=== PATIENT | female | born 1945 | race Caucasian/White ===

== ENCOUNTER 2019-09-11 10:31 | Inpatient (IN) ==
--- NOTE | 2019-09-11 10:45 | Emergency Department Note ---
SOB HPI - General Chief Complaint: Shortness of Breath/Dyspnea Stated Complaint: shortness of breath x3 days with fever/cough Time Seen by Provider: 09/11/19 10:33 Source: patient Mode of arrival: wheelchair Limitations: no limitations - History of Present Illness 74-year-old female comes into the emergency Department today with complaint of fevers that began 3 days ago as well as cough, shortness of breath, and wheezing. She has a history of COPD. She reports that she has oxygen at home but normally does not require her oxygen until the last couple of days. She also noticed having pain on the lateral side of her right lower chest for the last 2 days. She has a productive cough of light brown colored sputum. She denies any nausea, vomiting, diarrhea, constipation, melena, hematochezia. She denies chest pains, headache, weakness, dizziness. - Related Data Home Medications Medication Instructions Recorded Confirmed allopurinol 100 mg tablet 300 mg PO QDAY tab 03/26/17 09/11/19 vitamin B complex 1 tab-cap PO QDAY 03/26/17 09/11/19 simvastatin 40 mg tablet 40 mg PO QPM tab 08/11/17 09/11/19 fluticasone furoate 200 1 inh INHALATION Q24H 12/07/17 09/11/19 mcg-vilanterol 25 mcg/dose inhalation powder umeclidinium 62.5 mcg/actuation 1 inh INHALATION Q24H 12/07/17 09/11/19 blister powder for inhalation omega-3 fatty acids 300 mg capsule 500 mg PO .once a day cap 07/04/18 09/11/19 omeprazole 20 mg tablet,delayed 20 mg PO .q.o.d tab 07/04/18 09/11/19 release carvedilol 6.25 mg tablet 12.5 mg PO BID tab 07/24/19 09/11/19 Pen Needle, Diabetic [Incontrol See Dose Instructions dose .ROUTE 09/11/19 09/11/19 Pen Needle] .MEDSUPPLY Previous Rx's Medication Instructions Recorded insulin glargine U-300 conc 300 10 unit SUB-Q QHS #4.5 ml 05/29/19 unit/mL (1.5 mL) subcutaneous pen insulin lispro 100 unit/mL 5 unit SUB-Q QHS #15 ml 07/27/19 subcutaneous pen Allergies Allergy/AdvReac Type Severity Reaction Status Date / Time Sulfa (Sulfonamide Allergy Unknown Unknown Verified 07/24/19 09:53 Antibiotics) Review of Systems Constitutional: Reports: fever, chills. Denies: weakness Eyes: Denies: vision change ENT ED: Reports: congestion, rhinorrhea. Denies: ear pain, throat pain Cardiovascular: Denies: chest pain, palpitations Respiratory: Reports: shortness of breath, cough, wheezes, phlegm Gastrointestinal: Denies: abdominal pain, nausea, vomiting Genitourinary: Denies: dysuria, frequency Musculoskeletal: Denies: back pain, joint swelling Neurological: Denies: headache, weakness Psychiatric: Denies: anxiety, depression Endocrine: Denies: fatigue, heat or cold intolerance Hematological/Lymphatic: Denies: easy bleeding, easy bruising Past Medical History - Past Medical History Medical history: Reports: arthritis, cancer, COPD, DM, GERD, hypertension, renal disease Surgical history ED: Reports: other (partial nephrectomy 2015) - Social History smoking status: Former smoker Physical Exam Limitations: no limitations General appearance: alert, anxious Head: atraumatic, normocephalic, normal inspection Eye: Present: normal appearance, PERRL, EOMI. Absent: scleral icterus, conjunctival injection ENT: Present: normal oropharynx, mucous membranes moist Neck: Present: normal inspection, full ROM, trachea midline, other (no JVD). Absent: lymphadenopathy Chest: Present: normal inspection, symmetric chest wall rise Respiratory: Present: rales/crackles (all lobes), wheezes (all lobes), other (tachypnea). Absent: accessory muscle use Cardiovascular: Present: normal rhythm, tachycardia, +S1, +S2. Absent: systolic murmur, diastolic murmur Abdominal: Present: soft. Absent: distention, tenderness, guarding, rebound, rigidity, organomegaly, mass Extremities: Present: normal inspection, full ROM, normal capillary refill, pedal edema (2+), pretibial edema (2+). Absent: cyanosis Back: Present: normal inspection, full ROM Neurological: Present: alert, oriented X3, CN II-XII intact Skin: Present: warm, dry, normal color Course - Reevaluation(s) Time: 12:00 (White count 22.6, lactic acid normal at 1.6. 1 g Rocephin will be given for pneumonia. On the x-ray and appears pneumonia to my review. This will be read by radiologist.) Time: 12:15 (spoke with Dr. Joshi, radiologist who read the chest x-ray today. Dr. Joshi recommended CT scanning for further evaluation. Patient cried level 4.0, and Dr. Joshi recommended performing chest CT without co ntrast.) Time: 12:29 (Spoke with Dr. Linares who is the hospitalist today. Dr. Linares will come down to the ED and see the patient after the chest CT has been resulted. Pt is currently in radiology at this time.) Vital Signs Temperature 98.1 F 09/11/19 10:32 Pulse Rate 133 H 09/11/19 10:32 Respiratory Rate 30 H 09/11/19 10:32 Blood Pressure 166/78 09/11/19 10:32 Pulse Oximetry (%) 83 L 09/11/19 10:32 Temperature 99.4 F H 09/11/19 17:20 Pulse Rate 109 H 09/11/19 17:20 Respiratory Rate 28 H 09/11/19 17:20 Blood Pressure 147/85 09/11/19 17:20 Pulse Oximetry (%) 95 09/11/19 17:20 Shortness of Breath/Dyspnea - [facility] Narrative Medical decision making narrative: DuoNeb was given on arrival to the emergency department and she did not have much improvement with this, but did have some decreased wheezing. Patient requiring oxygen here at the emergency department. She has elevated white count and on chest x-ray appears to show pneumonia. Patient was given 1 g Rocephin IV here in the emergency department. She was unable to lie flat and did have a CT scan done today. Spoke with Dr. Linares about the patient, and the patient will be admitted [facility]. - Lab Data Lab results reviewed: Yes I reviewed the patient's lab results. Lab results narrative: Urine dipstick shows moderate amount of leukocytes and blood. Urine will be sent for microscopic examination. Result diagrams: 09/11/19 10:48 09/11/19 10:48 Lab Results 09/11/19 09/11/19 09/11/19 Range/Units 10:48 10:48 10:48 WBC 22.6 H (4.5-11.0) K/mcL RBC 3.79 L (4.00-5.20) M/mcL Hgb 11.5 L (12.0-15.0) g/dL Hct 36.4 (36.0-48.0) % MCV 96.1 (80.0-100.0) fL MCH 30.3 (26.0-34.0) pg MCHC 31.5 (31.0-36.0) g/dL RDW 16.3 H (11.5-14.5) % Plt Count 162 (140-440) K/mcL MPV 9.0 (7.4-10.4) fL Gran % 86.0 H (38.0-78.0) % Lymph % (Auto) 5.6 L (15.5-49.0) % [place] % (Auto) 8.4 (1.0-12.0) % Eos % (Auto) 0 (0.0-7.0) % Baso % (Auto) 0 (0.0-2.0) % Gran # 19.4 H (1.8-8.0) K/mcL Lymph # (Auto) 1.3 L (1.5-4.8) K/mcL [place] # (Auto) 1.9 H (0.1-0.9) K/mcL Eos # (Auto) 0 (0.0-0.7) K/mcL Baso # (Auto) 0 (0.0-0.3) K/mcL Differential Comment VBG Lactic Acid 1.6 (0.5-2.0) mmol/L Sodium 136 (133-145) mmol/L Potassium 4.9 (3.3-5.1) mmol/L Chloride 96 (96-108) mmol/L Carbon Dioxide 17 L (22-30) mmol/L Anion Gap 23.0 H (8-16) BUN 68 H (8-23) mg/dl Creatinine 4.0 H (0.6-1.1) mg/dl GFR Calculation 10 Glucose 149 H (70-105) mg/dL Calcium 9.8 (8.6-10.4) mg/dl Total Bilirubin 0.6 (0.0-1.0) mg/dL AST 14 (0-37) U/l ALT 11 (0-40) U/l Alkaline Phosphatase 95 (39-117) U/L Total Creatine Kinase 87 (24-170) IU/L CK-MB (CK-2) 1.7 (0-2.9) ng/ml Troponin T (0-0.03) ng/ml Total Protein 8.3 (5.9-8.4) gm/dL Albumin 4.1 (3.2-5.2) gm/dL Globulin 4.2 H (2.2-3.7) gm/dL Albumin/Globulin Ratio 1.0 (1.0-2.3) Procalcitonin (<0.10) ng/mL Urine Color Urine Appearance Urine pH (5.0-9.0) Ur Specific [place] (1.000-1.035) Urine Protein (NEG) mg/dL Urine Glucose (UA) (NEG) mg/dL Urine Ketones (NEG) mg/dL Urine Occult Blood (<0.03) mg/dL Urine Nitrate (NEG) Urine Bilirubin (NEG) mg/dL Urine Urobilinogen (NEG) mg/dL Ur Leukocyte Esterase (NEG) /uL Urine RBC (0-1) /hpf Urine WBC (0-4) /hpf Ur Squamous Epith Cells (0-4) /hpf Ur Transition Epith Cell (0-2) /hpf Urine Bacteria (0) /hpf Urine Mucus (0) /hpf Urine Yeast (Budding) (0) /hpf Ur Culture Indicated? Mycoplasma pneumon IgM (NEGATIVE) Ur Strep pneumoniae Ag (NEGATIVE) 09/11/19 09/11/19 09/11/19 Range/Units 10:48 10:48 10:49 WBC (4.5-11.0) K/mcL RBC (4.00-5.20) M/mcL Hgb (12.0-15.0) g/dL Hct (36.0-48.0) % MCV (80.0-100.0) fL MCH (26.0-34.0) pg MCHC (31.0-36.0) g/dL RDW (11.5-14.5) % Plt Count (140-440) K/mcL MPV (7.4-10.4) fL Gran % (38.0-78.0) % Lymph % (Auto) (15.5-49.0) % [place] % (Auto) (1.0-12.0) % Eos % (Auto) (0.0-7.0) % Baso % (Auto) (0.0-2.0) % Gran # (1.8-8.0) K/mcL Lymph # (Auto) (1.5-4.8) K/mcL [place] # (Auto) (0.1-0.9) K/mcL Eos # (Auto) (0.0-0.7) K/mcL Baso # (Auto) (0.0-0.3) K/mcL Differential Comment VBG Lactic Acid (0.5-2.0) mmol/L Sodium (133-145) mmol/L Potassium (3.3-5.1) mmol/L Chloride (96-108) mmol/L Carbon Dioxide (22-30) mmol/L Anion Gap (8-16) BUN (8-23) mg/dl Creatinine (0.6-1.1) mg/dl GFR Calculation Glucose (70-105) mg/dL Calcium (8.6-10.4) mg/dl Total Bilirubin (0.0-1.0) mg/dL AST (0-37) U/l ALT (0-40) U/l Alkaline Phosphatase (39-117) U/L Total Creatine Kinase (24-170) IU/L CK-MB (CK-2) (0-2.9) ng/ml Troponin T < 0.01 (0-0.03) ng/ml Total Protein (5.9-8.4) gm/dL Albumin (3.2-5.2) gm/dL Globulin (2.2-3.7) gm/dL Albumin/Globulin Ratio (1.0-2.3) Procalcitonin 1.86 (<0.10) ng/mL Urine Color Urine Appearance Urine pH (5.0-9.0) Ur Specific [place] (1.000-1.035) Urine Protein (NEG) mg/dL Urine Glucose (UA) (NEG) mg/dL Urine Ketones (NEG) mg/dL Urine Occult Blood (<0.03) mg/dL Urine Nitrate (NEG) Urine Bilirubin (NEG) mg/dL Urine Urobilinogen (NEG) mg/dL Ur Leukocyte Esterase (NEG) /uL Urine RBC (0-1) /hpf Urine WBC (0-4) /hpf Ur Squamous Epith Cells (0-4) /hpf Ur Transition Epith Cell (0-2) /hpf Urine Bacteria (0) /hpf Urine Mucus (0) /hpf Urine Yeast (Budding) (0) /hpf Ur Culture Indicated? Mycoplasma pneumon IgM Negative (NEGATIVE) Ur Strep pneumoniae Ag (NEGATIVE) 09/11/19 09/11/19 Range/Units 12:15 12:15 WBC (4.5-11.0) K/mcL RBC (4.00-5.20) M/mcL Hgb (12.0-15.0) g/dL Hct (36.0-48.0) % MCV (80.0-100.0) fL MCH (26.0-34.0) pg MCHC (31.0-36.0) g/dL RDW (11.5-14.5) % Plt Count (140-440) K/mcL MPV (7.4-10.4) fL Gran % (38.0-78.0) % Lymph % (Auto) (15.5-49.0) % [place] % (Auto) (1.0-12.0) % Eos % (Auto) (0.0-7.0) % Baso % (Auto) (0.0-2.0) % Gran # (1.8-8.0) K/mcL Lymph # (Auto) (1.5-4.8) K/mcL [place] # (Auto) (0.1-0.9) K/mcL Eos # (Auto) (0.0-0.7) K/mcL Baso # (Auto) (0.0-0.3) K/mcL Differential Comment VBG Lactic Acid (0.5-2.0) mmol/L Sodium (133-145) mmol/L Potassium (3.3-5.1) mmol/L Chloride (96-108) mmol/L Carbon Dioxide (22-30) mmol/L Anion Gap (8-16) BUN (8-23) mg/dl Creatinine (0.6-1.1) mg/dl GFR Calculation Glucose (70-105) mg/dL Calcium (8.6-10.4) mg/dl Total Bilirubin (0.0-1.0) mg/dL AST (0-37) U/l ALT (0-40) U/l Alkaline Phosphatase (39-117) U/L Total Creatine Kinase (24-170) IU/L CK-MB (CK-2) (0-2.9) ng/ml Troponin T (0-0.03) ng/ml Total Protein (5.9-8.4) gm/dL Albumin (3.2-5.2) gm/dL Globulin (2.2-3.7) gm/dL Albumin/Globulin Ratio (1.0-2.3) Procalcitonin (<0.10) ng/mL Urine Color Yellow Urine Appearance Cloudy Urine pH 6.0 (5.0-9.0) Ur Specific [place] 1.015 (1.000-1.035) Urine Protein >=500 A (NEG) mg/dL Urine Glucose (UA) 50 A (NEG) mg/dL Urine Ketones 5/tr A (NEG) mg/dL Urine Occult Blood 0.03 A (<0.03) mg/dL Urine Nitrate Neg (NEG) Urine Bilirubin Neg (NEG) mg/dL Urine Urobilinogen Neg (NEG) mg/dL Ur Leukocyte Esterase 250 A (NEG) /uL Urine RBC 7 H (0-1) /hpf Urine WBC 50 H (0-4) /hpf Ur Squamous Epith Cells 10 H (0-4) /hpf Ur Transition Epith Cell 1 (0-2) /hpf Urine Bacteria Few A (0) /hpf Urine Mucus Few (0) /hpf Urine Yeast (Budding) Few A (0) /hpf Ur Culture Indicated? No Mycoplasma pneumon IgM (NEGATIVE) Ur Strep pneumoniae Ag Negative (NEGATIVE) - Radiology Data Ordering Physician: Gael Powell Date of Service: 09/11/19 Procedure(s): XR chest 1V portable Accession Number(s): [id number] CLINICAL INFORMATION: dyspnea COMPARISON: 06/21/2019 plain film and chest CT 12/09/2017 FINDINGS: Moderate hiatal hernia again noted. Mild cardiomegaly is stable. Mild enlargement of the right hilum demonstrates long-term stability. Moderate interstitial disease within the right lung, predominantly in the perihilar region, is new since the comparison chest x-ray two months ago. A small patchy infiltrate has also developed in the left base. Small bilateral pleural effusion noted IMPRESSION: Moderate right lung interstitial infiltrate or edema is most prominent in the right perihilar region and smaller patchy left basilar infiltrate are new from previous x-ray. Consider: repeat chest CT given the complexity of this pulmonary pattern. This could be performed as CT pulmonary angiogram, to concomitantly exclude pulmonary embolus, as the patient can't tolerate iodinated contrast Interpreted and Authenticated by: Manuel Joshi 09/11/19 [id number] [id number] Systems Spec: <Electronically signed by Manuel Joshi M.D. in OV> 09/11/19 1204 Disposition Pt seen by TRANSFER KNITTER/PA only: No Clinical Impression: Community acquired pneumonia, CKD (chronic kidney disease) Disposition: Xfer As Inpt ([facility]) Condition: Fair
[2019-09-11] MEDS ORDERED: IPRATROPIUM/ALBUTEROL 3 ML AMPUL.NEB NEB ONE (10:47)
[2019-09-11] MEDS ORDERED: 0.9 % SODIUM CHLORIDE 1,000 ML IV ONE ×2 (10:49→11:41)
[2019-09-11 11:36] LABS: Basophils # (Auto) 0 K/mcL (0.0-0.3); Basophils % (Auto) 0 % (0.0-2.0); Eosinophils # (Auto) 0 K/mcL (0.0-0.7); Eosinophils % (Auto) 0 % (0.0-7.0); Hematocrit 36.4 % (36.0-48.0); Hemoglobin 11.5 g/dL (12.0-15.0); Lymphocytes # (Auto) 1.3 K/mcL (1.5-4.8); Lymphocytes % (Auto) 5.6 % (15.5-49.0); Mean Cell Volume 96.1 fL (80.0-100.0); Mean Corpuscular HGB Conc 31.5 g/dL (31.0-36.0); Monocytes # (Auto) 1.9 K/mcL (0.1-0.9); Monocytes % (Auto) 8.4 % (1.0-12.0); Platelet Count 162 K/mcL (140-440); RBC 3.79 M/mcL (4.00-5.20); Red Cell Distribution Width 16.3 % (11.5-14.5); WBC 22.6 K/mcL (4.5-11.0)
[2019-09-11] MEDS ORDERED: PIPERACILLIN SODIUM/TAZOBACTAM 3.375 GM in DEXTROSE 5% IN WATER 50 ML IV ONE (11:44)
[2019-09-11] MEDS ORDERED: cefTRIAXone 1 GM VIAL IV ONE (11:47)
[2019-09-11 11:58] LABS: ALT/SGPT 11 U/l (0-40); AST/SGOT 14 U/l (0-37); Albumin 4.1 gm/dL (3.2-5.2); Alkaline Phosphatase 95 U/L (39-117); Bilirubin,Total 0.6 mg/dL (0.0-1.0); Blood Urea Nitrogen 68 mg/dl (8-23); Calcium 9.8 mg/dl (8.6-10.4); Carbon Dioxide 17 mmol/L (22-30); Chloride 96 mmol/L (96-108); Creatine Kinase 87 IU/L (24-170); Creatine Kinase MB 1.7 ng/ml (0-2.9); Globulin 4.2 gm/dL (2.2-3.7); Glomerular Filtration Rate 10; Glucose 149 mg/dL (70-105)
--- NOTE | 2019-09-11 12:07 | XRay Report ---
CLINICAL INFORMATION: dyspnea COMPARISON: 06/21/2019 plain film and chest CT 12/09/2017 FINDINGS: Moderate hiatal hernia again noted. Mild cardiomegaly is stable. Mild enlargement of the right hilum demonstrates long-term stability. Moderate interstitial disease within the right lung, predominantly in the perihilar region, is new since the comparison chest x-ray two months ago. A small patchy infiltrate has also developed in the left base. Small bilateral pleural effusion noted IMPRESSION: Moderate right lung interstitial infiltrate or edema is most prominent in the right perihilar region and smaller patchy left basilar infiltrate are new from previous x-ray. Consider: repeat chest CT given the complexity of this pulmonary pattern. This could be performed as CT pulmonary angiogram, to concomitantly exclude pulmonary embolus, as the patient can't tolerate iodinated contrast Interpreted and Authenticated by: Manuel Joshi 09/11/19
[2019-09-11 12:58] LABS: Appearance,Urine CLOUDY; Bacteria,Urine FEW /hpf (0); Bilirubin,Urine NEG (NEG); Color,Urine YELLOW; Culture Indicated,Urine NO; Glucose,Urine (UA) 50 mg/dL (NEG); Ketones,Urine 5/TR mg/dL (NEG); Leukocyte Esterase,Urine 250 /uL (NEG); Mucus,Urine FEW /hpf (0); Nitrate,Urine NEG (NEG); Protein,Urine >=500 mg/dL (NEG); Specific Gravity,Urine 1.015 (1.000-1.035); Urine Blood 0.03 mg/dL (<0.03); Urine Budding Yeast FEW /hpf (0); Urine RBC 7 /hpf (0-1); Urine Squamous Epithelial Cell 10 /hpf (0-4); Urine Transitional Epi Cells 1 /hpf (0-2); Urine WBC 50 /hpf (0-4); Urobilinogen,Urine NEG (NEG)
--- NOTE | 2019-09-11 13:11 | Internal Med History&Physical ---
Medical - H&P: [facility] Patient information: Note initiated : 09/11/19 at 1:10 pm Service Date, if different from initiated Date: [] Patient: Kellee Heller a 74 y/o F admitted on for shortness of breath x3 days with fever/cough. Chief Complaint: Cough, dyspnea History of present illness: Ms. Heller is a 74 year old F with a history of type 2 diabetes, chronic kidney disease, COPD on nocturnal oxygen who presents with cough and dyspnea. Patient states she developed cough about 3 days ago, productive of grayish sputum. Since then she is developed progressive dyspnea. She normally uses oxygen at night, started using it during the day to help with her shortness of breath. She has not noted a fever, has had no shaking chills. Yesterday afternoon she developed lower right-sided chest pain which was worse with coughing and deep inspiration. For the last 2 nights she has been sleeping upright secondary to shortness of breath when trying to lay back. Patient has no history of heart failure, does have lower extremity edema at baseline and feels it is not worse than usual. She denies any chest pain or tightness or pressure. She said no nausea or vomiting. She is had no headache or myalgia, has had some mild rhinorrhea. She did receive influenza vaccine this year. In the emergency department, the patient was requiring up to 4 L nasal cannula to maintain oxygen saturations in the low 90s. Her white count was 22,000. Her creatinine is elevated to 4.0, her most recent creatinine being 3.2 (patient has solitary kidney, status post partial, then eventual resection of left kidney for renal cell carcinoma with recurrence). Chest x-ray revealed moderate right infiltrate, more perihilar as well as some mild left-sided findings. These were felt to be infection versus edema. Further evaluation with CT was suggested, however the patient was too dyspneic to lie in the scanner. She is being admitted for treatment of pneumonia with sepsis. All systems: reviewed and no additional remarkable complaints except as stated Medical - H&P: PMH Medical history: Chronic obstructive lung disease (Chronic) CKD (chronic kidney disease) stage 4, GFR 15-29 ml/min (Chronic) Hyperparathyroidism due to renal insufficiency (Chronic) Hypertension (Chronic) High cholesterol (Chronic) Gout (Chronic) GERD (gastroesophageal reflux disease) (Chronic) Diabetes (Chronic) Anemia (Chronic) Cervical dystonia (Chronic) ALEXANDRA (obstructive sleep apnea) (Chronic) Sinus problem (Chronic) Arthritis (Chronic) Osteoporosis (Chronic) H/O Renal cell carcinoma (Chronic) Single kidney (Chronic) History of nephrectomy, unilateral (Resolved) History of pneumococcal infection (Resolved) Surgical history: History of cholecystectomy (Chronic) History of partial nephrectomy (Chronic), with subsequent resection of remainder of kidney due to recurrent renal cell History of right hip replacement (Chronic) History of tonsillectomy (Chronic) S/P tubal ligation (Chronic) Pertinent family history: Father No pertinent family history Mother No problems noted. Social history: Patient does not smoke. No alcohol use. Medical - H&P: Meds Home Medications Medication Instructions Recorded Confirmed Type allopurinol 100 mg tablet 300 mg PO QDAY tab 03/26/17 09/11/19 History vitamin B complex 1 tab-cap PO QDAY 03/26/17 09/11/19 History simvastatin 40 mg tablet 40 mg PO QPM tab 08/11/17 09/11/19 History fluticasone furoate 200 1 inh INHALATION Q24H 12/07/17 09/11/19 History mcg-vilanterol 25 mcg/dose inhalation powder umeclidinium 62.5 mcg/actuation 1 inh INHALATION Q24H 12/07/17 09/11/19 History blister powder for inhalation omega-3 fatty acids 300 mg capsule 500 mg PO .once a day cap 07/04/18 09/11/19 History omeprazole 20 mg tablet,delayed 20 mg PO .q.o.d tab 07/04/18 09/11/19 History release insulin glargine U-300 conc 300 10 unit SUB-Q QHS #4.5 ml 05/29/19 09/11/19 Rx unit/mL (1.5 mL) subcutaneous pen carvedilol 6.25 mg tablet 12.5 mg PO BID tab 07/24/19 09/11/19 History insulin lispro 100 unit/mL 5 unit SUB-Q QHS #15 ml 07/27/19 09/11/19 Rx subcutaneous pen Pen Needle, Diabetic [Incontrol See Dose Instructions dose .ROUTE 09/11/19 09/11/19 History Pen Needle] .MEDSUPPLY Allergies Allergy/AdvReac Type Severity Reaction Status Date / Time Sulfa (Sulfonamide Allergy Unknown Unknown Verified 07/24/19 09:53 Antibiotics) Medical - H&P: Exam - Constitutional Vitals: Temp Pulse Resp BP Pulse Ox 98.1 F 132 H 34 H 143/90 91 09/11/19 10:32 09/11/19 12:45 09/11/19 12:45 09/11/19 12:45 09/11/19 12:45 Exam: GENERAL: Alert, oriented, in moderate distress. HEENT: Atraumatic. PERRL at 2 mm, conjunctiva clear, no scleral icterus. Hearing grossly intact. Oropharynx with tacky mucous membranes, no erythema or exudate. Tongue midline, palate rises symmetrically. NECK: Supple without meningismus, no thyromegaly RESPIRATORY: Breath sounds coarse bilaterally with expiratory wheezes and prolonged expiratory phase. There is moderate use of accessory muscles. CARDIOVASCULAR: Tachycardic, regular, no murmur gallop or rub appreciated, though heart tones partially obscured by breath sounds. 2+ peripheral edema. Carotid pulses 2+ without bruit. GI: Abdomen soft, nontender, no guarding or rebound. Bowel sounds are present. MUSCULOSKELETAL: Tenderness to palpation along the right lower thorax over the ribs. No over lying erythema. No joint erythema in the extremities, normal range of motion in all extremities. SKIN: Warm, dry. Skin turgor normal. NEUROLOGIC: Cranial nerves II through XII grossly intact. Muscle mass normal for age. Strength 5/5 in the upper and lower extremities. Sensation intact to light touch bilaterally. PSYCHIATRIC: Alert, oriented x3, normal insight. Medical - H&P: Reslt - Labs CBC & Chem 7: 09/11/19 10:48 09/11/19 10:48 Labs: Short CBC 09/11/19 Range/Units 10:48 WBC 22.6 H (4.5-11.0) K/mcL Hgb 11.5 L (12.0-15.0) g/dL Hct 36.4 (36.0-48.0) % Plt Count 162 (140-440) K/mcL BMP 09/11/19 10:48 Sodium 136 Potassium 4.9 Chloride 96 Carbon Dioxide 17 L BUN 68 H Creatinine 4.0 H Glucose 149 H Calcium 9.8 Cardiac Enzymes 09/11/19 09/11/19 Range/Units 10:48 10:48 Total Creatine Kinase 87 (24-170) IU/L CK-MB (CK-2) 1.7 (0-2.9) ng/ml Troponin T < 0.01 (0-0.03) ng/ml Liver Function 09/11/19 Range/Units 10:48 Total Bilirubin 0.6 (0.0-1.0) mg/dL AST 14 (0-37) U/l ALT 11 (0-40) U/l Alkaline Phosphatase 95 (39-117) U/L Albumin 4.1 (3.2-5.2) gm/dL Urine 09/11/19 Range/Units 12:15 Urine Color Yellow Urine Appearance Cloudy Urine pH 6.0 (5.0-9.0) Ur Specific [place] 1.015 (1.000-1.035) Urine Protein >=500 A (NEG) mg/dL Urine Glucose (UA) 50 A (NEG) mg/dL - ABG Interpretation ABG results: Venous blood gas: pH 7.35/PaCO2 35/PaO2 23 - EKG Data -: EKG Reviewed by Myself (Sinus tachycardia rate of 133 without injury) - Imaging and Cardiology Chest x-ray Status: image reviewed by me Additional comments: IMPRESSION: Moderate right lung interstitial infiltrate or edema is most prominent in the right perihilar region and smaller patchy left basilar infiltrate are new from previous x-ray. Consider: repeat chest CT given the complexity of this pulmonary pattern. Medical - H&P: A/P - Narrative A/P Narrative: 74-year-old female with underlying COPD presents with progressive cough, sputum production and dyspnea. Pneumonia with sepsis. Patient with evidence of right-sided infiltrate, has productive cough and leukocytosis consistent with pneumonia. Based on tachycardia, tachypnea and leukocytosis, meets SIRS criteria for sepsis. Lactate is normal, not severe sepsis. Inpatient mission Ceftriaxone and azithromycin for presumptive community-acquired pneumonia Check RVP, mycoplasma serology, pneumococcal antigen, sputum culture Follow-up cultures COPD with acute exacerbation. Patient with prolonged expiratory phase and some wheezing on exam. Appears tight. This is likely triggered by her underlying pneumonia. Continue home inhalers Scheduled DuoNeb As needed albuterol IV methylprednisolone Acute on chronic hypoxic respiratory failure. Normally takes up to 2 L of oxygen at night. Is now requiring 4 L to maintain low 90s saturation. Likely secondary to above. Supplemental oxygen as needed Lower extremity edema. No history of congestive heart failure. Given her o rthopnea (which could be due to her infectious process) may benefit from diuresis. Trial of furosemide, though need to follow renal function closely VIVIANA on CKD, solitary kidney. Patient has had total nephrectomy due to renal cell carcinoma (initial partial nephrectomy, with subsequent removal of remainder of kidney) creatinine was 3.2 recently, 4.0 today. This may be due to sepsis. Given her respiratory status, she will require trial of diuresis. Renally dose meds Avoid nephrotoxins Closely follow renal function If worsening, may need to involve nephrology Type 2 diabetes. Diabetic diet, sliding scale insulin, ADA diet CODE STATUS: Full code Prophylaxis: Heparin
[2019-09-11] MEDS ORDERED: ONDANSETRON 4 MG/2 ML VIAL IV PRN (14:05)
[2019-09-11] MEDS ORDERED: DEXTROSE 50% 50 ML VIAL IV PRN (14:05)
[2019-09-11] MEDS ORDERED: LACTULOSE 20 GM/30 ML ORAL.SOL PO PRN (14:05)
[2019-09-11] MEDS ORDERED: cefTRIAXone 1 GM in DEXTROSE 5% IN WATER 50 ML IV SCH (14:05)
[2019-09-11] MEDS ORDERED: ACETAMINOPHEN 325 MG TABLET PO PRN (14:05)
[2019-09-11] MEDS ORDERED: DEXTROSE 31 GM ORAL.SUSP PO PRN (14:05)
[2019-09-11] MEDS ORDERED: ALBUTEROL SULFATE 2.5 MG/3 ML NEBULIZER NEB PRN (14:05)
[2019-09-11] MEDS ORDERED: HYDROcodone/APAP 5/325MG TABLET PO PRN (14:05)
[2019-09-11] MEDS ORDERED: LABETALOL 5 MG/ML ML IV PRN (14:23)
[2019-09-11] MEDS: IPRATROPIUM/ALBUTEROL 3 ML AMPUL.NEB NEB SCH ×3 (15:06→22:55)
[2019-09-11] MEDS: methylPREDNISolone SOD SUCC 40 MG/ML VIAL IV SCH ×2 (15:12→22:25)
[2019-09-11] MEDS: 0.9 % SODIUM CHLORIDE 10 ML SYRINGE IV SCH ×2 (15:12→21:17)
[2019-09-11] MEDS: LACTATED RINGERS 1,000 ML IV SCH (15:12)
[2019-09-11] MEDS: AZITHROMYCIN 500 MG in DEXTROSE 5% IN WATER 250 ML IV SCH (15:13)
[2019-09-11] MEDS ORDERED: FUROSEMIDE 40 MG/4 ML VIAL IV ONE (15:27)
[2019-09-11 17:23] LABS: Appearance,Urine CLEAR; Bacteria,Urine FEW /hpf (0); Bilirubin,Urine NEG (NEG); Color,Urine YELLOW; Culture Indicated,Urine NO; Glucose,Urine (UA) 50 mg/dL (NEG); Ketones,Urine 5/TR mg/dL (NEG); Leukocyte Esterase,Urine 75 /uL (NEG); Mucus,Urine FEW /hpf (0); Nitrate,Urine NEG (NEG); Protein,Urine >=500 mg/dL (NEG); Specific Gravity,Urine 1.013 (1.000-1.035); Urine Blood 0.03 mg/dL (<0.03); Urine Hyaline Cast 5 /lpf (0-2); Urine RBC 4 /hpf (0-1); Urine Squamous Epithelial Cell 5 /hpf (0-4); Urine Transitional Epi Cells < 1 /hpf (0-2); Urine WBC 39 /hpf (0-4); Urobilinogen,Urine NEG (NEG)
[2019-09-11] MEDS: INSULIN LISPRO 1 UNIT/0.01 ML UNIT SQ SCH ×2 (17:27→21:17)
[2019-09-11] MEDS: CARVEDILOL 12.5 MG TABLET PO SCH (17:31)
[2019-09-11] MEDS ORDERED: SENNOSIDES 1 TABLET PO PRN (21:00)
[2019-09-11] MEDS: DOCUSATE SODIUM 100 MG CAPSULE PO SCH (21:03)
[2019-09-11] MEDS: SIMVASTATIN 40 MG TABLET PO SCH (21:03)
[2019-09-11] MEDS: HEPARIN 5,000 UNIT/ML VIAL SQ SCH (21:03)
[2019-09-11] MEDS: INSULIN GLARGINE, HUMAN 1 UNIT/0.01 ML SQ SCH (21:17)
[2019-09-12] MEDS: LACTATED RINGERS 1,000 ML IV SCH ×3 (00:32→18:08)
[2019-09-12] MEDS: guaiFENesin/DEXTROMETHORPHAN ORAL SOL PO PRN ×4 (01:11→21:06)
[2019-09-12] MEDS: IPRATROPIUM/ALBUTEROL 3 ML AMPUL.NEB NEB SCH ×6 (03:03→23:01)
[2019-09-12] MEDS: 0.9 % SODIUM CHLORIDE 10 ML SYRINGE IV SCH ×3 (04:17→21:06)
[2019-09-12] MEDS: methylPREDNISolone SOD SUCC 40 MG/ML VIAL IV SCH ×3 (05:51→21:44)
[2019-09-12 06:21] LABS: Basophils # (Auto) 0 K/mcL (0.0-0.3); Basophils % (Auto) 0.1 % (0.0-2.0); Eosinophils # (Auto) 0 K/mcL (0.0-0.7); Eosinophils % (Auto) 0 % (0.0-7.0); Granulocytes % (Auto) 96.1 % (38.0-78.0); Hematocrit 29.5 % (36.0-48.0); Hemoglobin 9.5 g/dL (12.0-15.0); Lymphocytes # (Auto) 0.4 K/mcL (1.5-4.8); Lymphocytes % (Auto) 3.1 % (15.5-49.0); Mean Cell Volume 96.1 fL (80.0-100.0); Mean Corpuscular HGB Conc 32.2 g/dL (31.0-36.0); Mean Platelet Volume 9.6 fL (7.4-10.4); Monocytes # (Auto) 0.1 K/mcL (0.1-0.9); Monocytes % (Auto) 0.7 % (1.0-12.0); Platelet Count 147 K/mcL (140-440); RBC 3.07 M/mcL (4.00-5.20); Red Cell Distribution Width 16.3 % (11.5-14.5); WBC 13.7 K/mcL (4.5-11.0)
[2019-09-12 07:09] LABS: ALT/SGPT 11 U/l (0-40); AST/SGOT 15 U/l (0-37); Albumin/Globulin Ratio 0.8 (1.0-2.3); Alkaline Phosphatase 89 U/L (39-117); Bilirubin,Direct < 0.2 mg/dL (0.0-0.3); Bilirubin,Total 0.2 mg/dL (0.0-1.0); Blood Urea Nitrogen 76 mg/dl (8-23); Calcium 8.4 mg/dl (8.6-10.4); Carbon Dioxide 16 mmol/L (22-30); Chloride 102 mmol/L (96-108); Globulin 3.7 gm/dL (2.2-3.7); Glomerular Filtration Rate 11; Glucose 214 mg/dL (70-105); Lactate Dehydrogenase 174 U/L (94-250); Phosphorous 5.3 mg/dL (2.7-4.5); Triglycerides 152 mg/dl (<150); Uric Acid 5.6 mg/dL (2.5-8.0)
[2019-09-12] MEDS: PANTOPRAZOLE 40 MG TABLET PO SCH (07:29)
[2019-09-12] MEDS: HEPARIN 5,000 UNIT/ML VIAL SQ SCH ×2 (08:37→21:05)
[2019-09-12] MEDS: Fluticasone/Vilanterol [Breo Ellipta 200-25 Mcg Inhaler] INH SCH (08:37)
[2019-09-12] MEDS: DOCUSATE SODIUM 100 MG CAPSULE PO SCH ×2 (08:37→21:06)
[2019-09-12] MEDS: INSULIN LISPRO 1 UNIT/0.01 ML UNIT SQ SCH ×4 (08:37→21:04)
[2019-09-12] MEDS: CARVEDILOL 12.5 MG TABLET PO SCH ×2 (08:37→17:19)
[2019-09-12] MEDS: AZITHROMYCIN 500 MG in DEXTROSE 5% IN WATER 250 ML IV SCH (08:38)
[2019-09-12] MEDS: cefTRIAXone 1 GM VIAL IV SCH (08:38)
[2019-09-12] MEDS: ALLOPURINOL 300 MG TABLET PO SCH (08:39)
[2019-09-12] MEDS ORDERED: ENOXAPARIN 30 MG/0.3 ML SYRINGE SQ SCH (09:00)
[2019-09-12] MEDS ORDERED: POTASSIUM CHLORIDE 20 MEQ TABLET PO PRN (09:56)
[2019-09-12] MEDS ORDERED: MAGNESIUM SULFATE 2 GM/50 ML BAG IV PRN (09:56)
--- NOTE | 2019-09-12 18:04 | Internal Med Progress Note ---
Medical - PN: Subj Patient information: Note initiated : 09/12/19 at 6:02 pm Service Date, if different from initiated Date: [] Patient: Kellee Heller a 74 y/o F admitted on 09/11/19 for shortness of breath x3 days with fever/cough. Chief Complaint: f/u PNA Interval history: 09/11 Ms. Heller is a 74 year old F with a history of type 2 diabetes, chronic kidney disease, COPD on nocturnal oxygen who presents with cough and dyspnea. Patient states she developed cough about 3 days ago, productive of grayish sputum. Since then she is developed progressive dyspnea. She normally uses oxygen at night, started using it during the day to help with her shortness of breath. She has not noted a fever, has had no shaking chills. Yesterday afternoon she developed lower right-sided chest pain which was worse with coughing and deep inspiration. For the last 2 nights she has been sleeping upright secondary to shortness of breath when trying to lay back. Patient has no history of heart failure, does have lower extremity edema at baseline and feels it is not worse than usual. She denies any chest pain or tightness or pressure. She said no nausea or vomiting. She is had no headache or myalgia, has had some mild rhinorrhea. She did receive influenza vaccine this year. In the emergency department, the patient was requiring up to 4 L nasal cannula to maintain oxygen saturations in the low 90s. Her white count was 22,000. Her creatinine is elevated to 4.0, her most recent creatinine being 3.2 (patient has solitary kidney, status post partial, then eventual resection of left kidney for renal cell carcinoma with recurrence). Chest x-ray revealed moderate right infiltrate, more perihilar as well as some mild left-sided findings. These were felt to be infection versus edema. Further evaluation with CT was suggested, however the patient was too dyspneic to lie in the scanner. She is being admitted for treatment of pneumonia with sepsis. 09/12 Patient improved. It took several hours for her to start to improve yesterday afternoon, did receive 40 mg of Lasix which also seemed to help her respiratory status. Still up in a recliner, though not having to sit upright and tripoding. Respirations less labored today. Nonproductive cough. Appetite is improving. - Constitutional Vitals: Vital Signs Temp Pulse Resp BP Pulse Ox 97.7 F 104 H 12 117/69 98 09/12/19 16:25 09/12/19 16:25 09/12/19 16:25 09/12/19 16:25 09/12/19 16:25 Period Temp Pulse Resp BP Sys/[place] Pulse Ox Last 24 Hr 97.0 F-98.9 F 78-104 12-32 103-131/58-85 92-99 Intake and Output 09/12/19 09/12/19 09/12/19 05:59 13:59 21:59 Intake Total 997 1610 1100 Output Total 301 100 300 Balance 696 1510 800 Weight 176 lb 8 oz Patient Weight 09/13/19 05:59 Weight 176 lb 8 oz Intake & Output: Intake & Output 09/12/19 09/12/19 09/12/19 05:59 13:59 21:59 Intake Total 997 1610 1100 Output Total 301 100 300 Balance 696 1510 800 Weight 176 lb 8 oz Intake: IV 817 1250 1000 Zithromax 500 mg In Dextrose 5% 250 in Water 250 ml @ 250 mls/hr IV DAILY [facility] Rx#:[id number] Lactated Ringers 1,000 ml @ 708 566 2535 1000 mls/hr IV .Q8H [facility] Rx#: [id number] Oral 180 360 100 Output: Void Amount 150 100 300 # of times incontinent of urine 1 Urine/Stool Mix 150 Other: Meal Dinner Percent of Meal Consumed 50% Urine Appearance Cloudy Clear Urine Color Bright Yellow Bright Yellow Stool Size Small Smear Stool Color Brown Brown Brown Stool Consistency Liquid Loose Loose # Bowel Movements 1 # of times incontinent of 1 1 Bowels Exam: General: Sitting up in chair, looks much more comfortable than at admission Chest: Improved expiratory phase, wheezes in all lung tuttle during expiration. Overall better aeration. Respirations moderately labored. Cardiovascular: Regular, 2+ edema Abdomen: Soft Neuro: Alert, oriented to person, place and situation. Medical - PN: Obj Da - Labs CBC & Chem 7: 09/12/19 04:11 09/12/19 04:11 Labs: Abnormal Lab Results 09/12/19 09/12/19 09/11/19 04:11 04:11 15:28 WBC 13.7 H RBC 3.07 L Hgb 9.5 L Hct 29.5 L RDW 16.3 H Gran % 96.1 H Lymph % (Auto) 3.1 L Bureau % (Auto) 0.7 L Gran # 13.2 H Lymph # (Auto) 0.4 L Bureau # (Auto) Carbon Dioxide 16 L Anion Gap 19.0 H BUN 76 H Creatinine 3.9 H Glucose 214 H Calcium 8.4 L Phosphorus 5.3 H Magnesium 1.3 L Albumin 3.0 L Globulin Albumin/Globulin Ratio 0.8 L Triglycerides 152 H Urine Protein >=500 A Urine Glucose (UA) 50 A Urine Ketones 5/tr A Urine Occult Blood 0.03 A Ur Leukocyte Esterase 75 A Urine RBC 4 H Urine WBC 39 H Ur Squamous Epith Cells 5 H Urine Bacteria Few A Hyaline Casts 5 H Urine Yeast (Budding) 09/11/19 09/11/19 09/11/19 12:15 10:48 10:48 WBC 22.6 H RBC 3.79 L Hgb 11.5 L Hct RDW 16.3 H Gran % 86.0 H Lymph % (Auto) 5.6 L [place] % (Auto) Gran # 19.4 H Lymph # (Auto) 1.3 L [place] # (Auto) 1.9 H Carbon Dioxide 17 L Anion Gap 23.0 H BUN 68 H Creatinine 4.0 H Glucose 149 H Calcium Phosphorus Magnesium Albumin Globulin 4.2 H Albumin/Globulin Ratio Triglycerides Urine Protein >=500 A Urine Glucose (UA) 50 A Urine Ketones 5/tr A Urine Occult Blood 0.03 A Ur Leukocyte Esterase 250 A Urine RBC 7 H Urine WBC 50 H Ur Squamous Epith Cells 10 H Urine Bacteria Few A Hyaline Casts Urine Yeast (Budding) Few A Meds: Medications Acetaminophen (Tylenol) 650 mg PO Q6HP PRN; Protocol PRN Reason: Per Pain Protocol/Fever > 101 Hydrocodone Bitart/Acetaminophen ([place] 5/325mg) 1 tab PO Q4HP PRN; Protocol PRN Reason: Per Pain Protocol Albuterol Sulfate (Ventolin) 2.5 mg NEB Q2HP PRN PRN Reason: Shortness Of Breath Albuterol/Ipratropium (Duoneb) 3 ml NEB Q4HRT [facility] Last Admin: 09/12/19 15:14 Dose: 3 ml Documented by: Allopurinol (Zylopriim) 300 mg PO DAILY [facility] Last Admin: 09/12/19 08:39 Dose: 300 mg Documented by: Carvedilol (Coreg) 12.5 mg PO BIDCC [facility] Last Admin: 09/12/19 17:19 Dose: 12.5 mg Documented by: Ceftriaxone Sodium (Rocephin) 1 gm IV DAILY [facility] Last Admin: 09/12/19 08:38 Dose: 1 gm Documented by: Dextrose (Dextrose 50%) 0 ml IV UD PRN PRN Reason: Hypoglycemia Diagnostic Test (Pha) (Accu-Chek) 1 each FS ACHS [facility] Last Admin: 09/12/19 17:18 Dose: 1 each Documented by: Docusate Sodium (Colace) 100 mg PO BID [facility] Last Admin: 09/12/19 08:37 Dose: Not Given Documented by: Glucose (Insta-Glucose) 15 gm PO PRN PRN PRN Reason: Hypoglycemia Guaifenesin (Robitussin Dm) 10 ml PO Q4HP PRN PRN Reason: Cough Last Admin: 09/12/19 16:16 Dose: 10 ml Documented by: Heparin Sodium (Porcine) (Heparin) 5,000 unit SQ Q12 [facility] Last Admin: 09/12/19 08:37 Dose: 5,000 unit Documented by: Lactated Ringer's (Lactated Ringers) 1,000 mls @ 125 mls/hr IV .Q8H [facility] Last Infusion: 09/12/19 17:51 Dose: Infused Documented by: Azithromycin 500 mg/ Dextrose 250 mls @ 250 mls/hr IV DAILY [facility]; Protocol Stop: 09/13/19 09:59 Last Infusion: 09/12/19 09:40 Dose: Infused Documented by: Magnesium Sulfate (Magnesium Sulfate) 2 gm in 50 mls @ 50 mls/hr IV UD PRN PRN Reason: Magnesium </= 1.6 Insulin Glargine (Lantus) 10 unit SQ HS [facility] Last Admin: 09/11/19 21:17 Dose: 10 units Documented by: Insulin Human Lispro (Humalog) 0 unit SQ ACHS [facility]; Protocol Last Admin: 09/12/19 17:19 Dose: 4 units Documented by: Labetalol HCl (Trandate) 10 mg IV Q2HP PRN PRN Reason: Hypertension Lactulose (Cephulac) 10 gm PO DAILYP PRN PRN Reason: Constipation Methylprednisolone Sodium Succinate (Solu-Medrol) 40 mg IV Q8 [facility] Last Admin: 09/12/19 14:07 Dose: 40 mg Documented by: Ondansetron HCl (Zofran) 4 mg IV Q4HP PRN; Protocol PRN Reason: Nausea And Vomiting Pantoprazole Sodium (Protonix) 40 mg PO QAMAC [facility] Last Admin: 09/12/19 07:29 Dose: 40 mg Documented by: Fluticasone/Vilanterol [Breo Ellipta 200-25 Mcg Inhaler] 1 dose INH DAILY [facility] Last Admin: 09/12/19 08:37 Dose: Not Given Documented by: Umeclidinium [place] [Incruse Ellipta] Inhaler 1 dose INH DAILY [facility] Last Admin: 09/12/19 08:38 Dose: Not Given Documented by: Potassium Chloride (Kdur) 40 meq PO UD PRN PRN Reason: Potssium is 3-3.5 Senna (Senokot) 2 tab PO HSP PRN PRN Reason: Constipation Simvastatin (Zocor) 40 mg PO HS [facility] Last Admin: 09/11/19 21:03 Dose: 40 mg Documented by: Sodium Chloride (Saline Flush) 10 ml IV Q8 [facility] Last Admin: 09/12/19 14:07 Dose: 10 ml Documented by: Medical - PN: A/P - Time Spent With Patient Total time spent is greater than 50% in coordination of care (as documented) at patient's floor/unit and/or counseling patient: 25 - 35 minutes - Narrative A/P Narrative: 74-year-old female with underlying COPD presents with progressive cough, sputum production and dyspnea. Pneumonia with sepsis. Starting to improve, white count down to 13,000. Patient with evidence of right-sided infiltrate, has productive cough and leukocytosis consistent with pneumonia. Based on tachycardia, tachypnea and leukocytosis, meets SIRS criteria for sepsis. Lactate was normal, not severe sepsis. Continue ceftriaxone and azithromycin for presumptive community-acquired pneumonia RVP negative, follow-up mycoplasma serology, pneumococcal antigen, sputum culture Follow-up cultures COPD with acute exacerbation. Improving. Initially patient with prolonged expiratory phase and some wheezing on exam. Appears tight. This is likely triggered by her underlying pneumonia. Continue home inhalers Continue scheduled DuoNeb Continue as needed albuterol Continue IV methylprednisolone Acute on chronic hypoxic respiratory failure. Normally takes up to 2 L of oxygen at night. Is now requiring 4 L to maintain low 90s saturation. Likely secondary to above. Supplemental oxygen as needed Lower extremity edema. No history of congestive heart failure. Given her orthopnea (which could be due to her infectious process) may benefit from diuresis. Consider further trial of furosemide if respiratory status does not continue to improve [facility] on CKD, solitary kidney. Patient has had total nephrectomy due to renal cell carcinoma (initial partial nephrectomy, with subsequent removal of remainder of kidney) creatinine was 3.2 recently, 4.0 at admission. This may be due to sepsis. Stable at 3.9 today after dose of diuretic yesterday. Renally dose meds Avoid nephrotoxins Closely follow renal function If worsening, may need to involve nephrology Type 2 diabetes. Diabetic diet, sliding scale insulin, ADA diet CODE STATUS: Full code Prophylaxis: Heparin Medical - PN: Qual - VTE Deep Vein Thrombosis/Pulmonary Embolism Present on Admission: No
[2019-09-12] MEDS: INSULIN GLARGINE, HUMAN 1 UNIT/0.01 ML SQ SCH (21:05)
[2019-09-12] MEDS: SIMVASTATIN 40 MG TABLET PO SCH (21:05)
[2019-09-13] MEDS: guaiFENesin/DEXTROMETHORPHAN ORAL SOL PO PRN ×2 (02:06→21:34)
[2019-09-13] MEDS: LACTATED RINGERS 1,000 ML IV SCH ×2 (02:17→07:52)
[2019-09-13] MEDS: IPRATROPIUM/ALBUTEROL 3 ML AMPUL.NEB NEB SCH ×4 (04:46→18:44)
[2019-09-13] MEDS: 0.9 % SODIUM CHLORIDE 10 ML SYRINGE IV SCH ×3 (05:42→20:57)
[2019-09-13] MEDS: methylPREDNISolone SOD SUCC 40 MG/ML VIAL IV SCH (05:42)
[2019-09-13 06:43] LABS: Basophils # (Auto) 0.02 K/mcL (0.00-0.30); Basophils % (Auto) 0.1 % (0.0-2.0); Eosinophils # (Auto) 0 K/mcL (0.00-0.70); Eosinophils % (Auto) 0 % (0.0-7.0); Hematocrit 29.5 % (34.1-44.9); Hemoglobin 9.4 g/dL (11.2-15.7); Lymphocytes # (Auto) 0.45 K/mcL (1.50-4.80); Lymphocytes % (Auto) 3.3 % (15.5-49.0); Mean Cell Volume 94.9 fL (80.0-100.0); Mean Corpuscular HGB Conc 31.9 g/dL (31.0-36.0); Mean Platelet Volume 11.7 fL (7.4-10.4); Monocytes # (Auto) 0.22 K/mcL (0.10-0.90); Monocytes % (Auto) 1.6 % (1.0-12.0); Platelet Count 148 K/mcL (140-440); RBC 3.11 M/mcL (3.59-5.38); Red Cell Distribution Width 14.6 % (11.5-14.5); WBC 13.8 K/mcL (4.50-11.00)
[2019-09-13 06:48] LABS: Blood Urea Nitrogen 87 mg/dl (8-23); Carbon Dioxide 15 mmol/L (22-30); Chloride 101 mmol/L (96-108); Glomerular Filtration Rate 14; Glucose 195 mg/dL (70-105)
[2019-09-13] MEDS: INSULIN LISPRO 1 UNIT/0.01 ML UNIT SQ SCH ×5 (07:50→21:16)
[2019-09-13] MEDS: Fluticasone/Vilanterol [Breo Ellipta 200-25 Mcg Inhaler] INH SCH ×2 (07:53→08:18)
[2019-09-13] MEDS: PANTOPRAZOLE 40 MG TABLET PO SCH (07:54)
[2019-09-13] MEDS: ALLOPURINOL 300 MG TABLET PO SCH (08:17)
[2019-09-13] MEDS: CARVEDILOL 12.5 MG TABLET PO SCH ×2 (08:17→17:27)
[2019-09-13] MEDS: HEPARIN 5,000 UNIT/ML VIAL SQ SCH ×2 (08:17→20:58)
[2019-09-13] MEDS: cefTRIAXone 1 GM VIAL IV SCH (08:17)
[2019-09-13] MEDS: AZITHROMYCIN 500 MG in DEXTROSE 5% IN WATER 250 ML IV SCH (08:18)
[2019-09-13] MEDS: DOCUSATE SODIUM 100 MG CAPSULE PO SCH ×2 (08:20→20:58)
[2019-09-13] MEDS ORDERED: FUROSEMIDE 40 MG/4 ML VIAL IV ONE (10:54)
[2019-09-13] MEDS ORDERED: HYDROcodone/APAP 5/325MG TABLET PO PRN (11:30)
[2019-09-13] MEDS ORDERED: LACTULOSE 20 GM/30 ML ORAL.SOL PO PRN (11:30)
[2019-09-13] MEDS ORDERED: MAGNESIUM SULFATE 2 GM/50 ML BAG IV PRN (11:30)
[2019-09-13] MEDS ORDERED: ACETAMINOPHEN 325 MG TABLET PO PRN (11:30)
[2019-09-13] MEDS ORDERED: ONDANSETRON 4 MG/2 ML VIAL IV PRN (11:30)
[2019-09-13] MEDS ORDERED: DEXTROSE 31 GM ORAL.SUSP PO PRN (11:30)
[2019-09-13] MEDS ORDERED: ALBUTEROL SULFATE 2.5 MG/3 ML NEBULIZER NEB PRN (11:30)
[2019-09-13] MEDS ORDERED: DEXTROSE 50% 50 ML VIAL IV PRN (11:30)
[2019-09-13] MEDS ORDERED: POTASSIUM CHLORIDE 20 MEQ TABLET PO PRN (11:30)
[2019-09-13] MEDS ORDERED: SENNOSIDES 1 TABLET PO PRN (11:30)
--- NOTE | 2019-09-13 12:18 | XRay Report ---
CLINICAL INFORMATION: f/u PNA COMPARISON: 09/11/2019 FINDINGS: The heart is normal in size. Moderate-sized hiatal hernia again noted. The right lung infiltrate has improved considerably since the previous x-ray two days ago with mild perihilar residual. There is a moderate infiltrate posterior left lower lobe which is seen better on today's exam due to the addition of a lateral view. This has also improved. Small left pleural effusion noted. IMPRESSION: Improving right lung infiltrate with mild perihilar residual Moderate posterior left lower lobe infiltrate also improving. Small left pleural effusion unchanged Moderate hiatal hernia - please consider aspiration risk Interpreted and Authenticated by: Manuel Joshi 09/13/19
--- NOTE | 2019-09-13 12:58 | Internal Med Progress Note ---
Medical - PN: Subj Patient information: Note initiated : 09/13/19 at 12:55 pm Service Date, if different from initiated Date: [] Patient: Kellee Heller a 74 y/o F admitted on 09/11/19 for shortness of breath x3 days with fever/cough. Chief Complaint: Follow-up pneumonia Interval history: 09/11 Ms. Heller is a 74 year old F with a history of type 2 diabetes, chronic kidney disease, COPD on nocturnal oxygen who presents with cough and dyspnea. Patient states she developed cough about 3 days ago, productive of grayish sputum. Since then she is developed progressive dyspnea. She normally uses oxygen at night, started using it during the day to help with her shortness of breath. She has not noted a fever, has had no shaking chills. Yesterday afternoon she developed lower right-sided chest pain which was worse with coughing and deep inspiration. For the last 2 nights she has been sleeping upright secondary to shortness of breath when trying to lay back. Patient has no history of heart failure, does have lower extremity edema at baseline and feels it is not worse than usual. She denies any chest pain or tightness or pressure. She said no nausea or vomiting. She is had no headache or myalgia, has had some mild rhinorrhea. She did receive influenza vaccine this year. In the emergency department, the patient was requiring up to 4 L nasal cannula to maintain oxygen saturations in the low 90s. Her white count was 22,000. Her creatinine is elevated to 4.0, her most recent creatinine being 3.2 (patient has solitary kidney, status post partial, then eventual resection of left kidney for renal cell carcinoma with recurrence). Chest x-ray revealed moderate right infiltrate, more perihilar as well as some mild left-sided findings. These were felt to be infection versus edema. Further evaluation with CT was suggested, however the patient was too dyspneic to lie in the scanner. She is being admitted for treatment of pneumonia with sepsis. 09/12 Patient improved. It took several hours for her to start to improve yesterday afternoon, did receive 40 mg of Lasix which also seemed to help her respiratory status. Still up in a recliner, though not having to sit upright and tripoding. Respirations less labored today. Nonproductive cough. Appetite is improving. 09/13/2019 Continues to feel improved, using 2 L of oxygen, back to her baseline (though usually just uses at night). Has not tried sleeping recumbent, more so because she feels comfortable in the recliner. Has been ambulating in the nurses station without significant dyspnea. Creatinine back down to 3.2, her baseline from 04/2019 - Constitutional Vitals: Vital Signs Temp Pulse Resp BP Pulse Ox 97.1 F 88 20 156/89 96 09/13/19 08:00 09/13/19 11:42 09/13/19 11:42 09/13/19 08:00 09/13/19 11:42 Period Temp Pulse Resp BP Sys/[place]owan Pulse Ox Last 24 Hr 97.1 F-97.7 F 66-109 9-28 109-156/66-89 94-100 Intake and Output 09/12/19 09/13/19 09/13/19 21:59 05:59 13:59 Intake Total 1100 1150 698 Output Total 540 300 Balance 560 850 698 Weight 182 lb 12.8 oz Intake & Output: Intake & Output 09/12/19 09/13/19 09/13/19 21:59 05:59 13:59 Intake Total 1100 1150 698 Output Total 540 300 Balance 560 850 698 Weight 182 lb 12.8 oz Intake: IV 1000 1000 698 Lactated Ringers 1,000 ml @ 125 1000 1000 698 mls/hr IV .Q8H [facility] Rx#: [id number] Oral 100 150 Output: Void Amount 540 300 Other: Meal Dinner Percent of Meal Consumed 50% Urine Appearance Clear Clear Urine Color Bright Yellow Bright Yellow Stool Size Smear Stool Color Brown # Bowel Movements 0 # of times incontinent of 1 Bowels Exam: General: Looks comfortable, no distress Chest: Scattered expiratory wheezes, no prolonged expiratory phase, good aeration bilaterally, no accessory muscle use Cardiovascular: Regular, 2+ edema Abdomen: Soft, nontender Neuro: Alert, oriented x3, nonfocal Medical - PN: Obj Da - Labs CBC & Chem 7: 09/13/19 04:17 09/13/19 04:17 Labs: Abnormal Lab Results 09/13/19 09/13/19 09/12/19 04:17 04:17 04:11 WBC 13.8 H RBC 3.11 L Hgb 9.4 L Hct 29.5 L RDW 14.6 H MPV 11.7 H Gran % 95.0 H Lymph % (Auto) 3.3 L [place] % (Auto) Gran # 13.14 H Lymph # (Auto) 0.45 L [place] # (Auto) Carbon Dioxide 15 L 16 L Anion Gap 19.0 H 19.0 H BUN 87 H 76 H Creatinine 3.2 H 3.9 H Glucose 195 H 214 H Calcium 8.0 L 8.4 L Phosphorus 5.3 H Magnesium 1.3 L Albumin 3.0 L Globulin Albumin/Globulin Ratio 0.8 L Triglycerides 152 H Urine Protein Urine Glucose (UA) Urine Ketones Urine Occult Blood Ur Leukocyte Esterase Urine RBC Urine WBC Ur Squamous Epith Cells Urine Bacteria Hyaline Casts Urine Yeast (Budding) 09/12/19 09/11/19 09/11/19 04:11 15:28 12:15 WBC 13.7 H RBC 3.07 L Hgb 9.5 L Hct 29.5 L RDW 16.3 H MPV Gran % 96.1 H Lymph % (Auto) 3.1 L [place] % (Auto) 0.7 L Gran # 13.2 H Lymph # (Auto) 0.4 L [place] # (Auto) Carbon Dioxide Anion Gap BUN Creatinine Glucose Calcium Phosphorus Magnesium Albumin Globulin Albumin/Globulin Ratio Triglycerides Urine Protein >=500 A >=500 A Urine Glucose (UA) 50 A 50 A Urine Ketones 5/tr A 5/tr A Urine Occult Blood 0.03 A 0.03 A Ur Leukocyte Esterase 75 A 250 A Urine RBC 4 H 7 H Urine WBC 39 H 50 H Ur Squamous Epith Cells 5 H 10 H Urine Bacteria Few A Few A Hyaline Casts 5 H Urine Yeast (Budding) Few A 09/11/19 09/11/19 10:48 10:48 WBC 22.6 H RBC 3.79 L Hgb 11.5 L Hct RDW 16.3 H MPV Gran % 86.0 H Lymph % (Auto) 5.6 L [place] % (Auto) Gran # 19.4 H Lymph # (Auto) 1.3 L [place] # (Auto) 1.9 H Carbon Dioxide 17 L Anion Gap 23.0 H BUN 68 H Creatinine 4.0 H Glucose 149 H Calcium Phosphorus Magnesium Albumin Globulin 4.2 H Albumin/Globulin Ratio Triglycerides Urine Protein Urine Glucose (UA) Urine Ketones Urine Occult Blood Ur Leukocyte Esterase Urine RBC Urine WBC Ur Squamous Epith Cells Urine Bacteria Hyaline Casts Urine Yeast (Budding) Meds: Medications Acetaminophen (Tylenol) 650 mg PO Q6HP PRN; Protocol PRN Reason: Per Pain Protocol/Fever > 101 Hydrocodone Bitart/Acetaminophen ([place] 5/325mg) 1 tab PO Q4HP PRN; Protocol PRN Reason: Per Pain Protocol Albuterol Sulfate (Ventolin) 2.5 mg NEB Q2HP PRN PRN Reason: Shortness Of Breath Albuterol/Ipratropium (Duoneb) 3 ml NEB Q4HRT [facility] Last Admin: 09/13/19 11:29 Dose: 3 ml Documented by: Allopurinol (Zylopriim) 300 mg PO DAILY [facility] Carvedilol (Coreg) 12.5 mg PO BIDCC [facility] Ceftriaxone Sodium (Rocephin) 1 gm IV DAILY [facility] Dextrose (Dextrose 50%) 0 ml IV UD PRN PRN Reason: Hypoglycemia Diagnostic Test (Pha) (Accu-Chek) 1 each FS [facility] Last Admin: 09/13/19 11:42 Dose: 1 each Documented by: Docusate Sodium (Colace) 100 mg PO BID [facility] Glucose (Insta-Glucose) 15 gm PO PRN PRN PRN Reason: Hypoglycemia Guaifenesin (Robitussin Dm) 10 ml PO Q4HP PRN PRN Reason: Cough Heparin Sodium (Porcine) (Heparin) 5,000 unit SQ Q12 [facility] Magnesium Sulfate (Magnesium Sulfate) 2 gm in 50 mls @ 50 mls/hr IV UD PRN PRN Reason: Magnesium </= 1.6 Last Admin: 09/13/19 12:49 Dose: 50 mls/hr Documented by: Insulin Glargine (Lantus) 10 unit SQ HS [facility] Insulin Human Lispro (Humalog) 0 unit SQ ACHS [facility]; Protocol Last Admin: 09/13/19 11:49 Dose: 6 units Documented by: Lactulose (Cephulac) 10 gm PO DAILYP PRN PRN Reason: Constipation Ondansetron HCl (Zofran) 4 mg IV Q4HP PRN; Protocol PRN Reason: Nausea And Vomiting Pantoprazole Sodium (Protonix) 40 mg PO QAMAC [facility] Fluticasone/Vilanterol [Breo Ellipta] 200-25 Mcg Inhaler 1 dose INH DAILY [facility] Umeclidinium [place] [Incruse Ellipta] Inhaler 1 dose INH DAILY [facility] Potassium Chloride (Kdur) 40 meq PO UD PRN PRN Reason: Potssium is 3-3.5 Prednisone (Prednisone) 40 mg PO QAC [facility] Senna (Senokot) 2 tab PO HSP PRN PRN Reason: Constipation Simvastatin (Zocor) 40 mg PO HS [facility] Sodium Chloride (Saline Flush) 10 ml IV Q8 [facility] - Imaging and cardiology Chest x-ray Status: image reviewed by me Additional comments: IMPRESSION: Improving right lung infiltrate with mild perihilar residual Moderate posterior left lower lobe infiltrate also improving. Small left pleural effusion unchanged Moderate hiatal hernia - please consider aspiration risk Medical - PN: A/P - Time Spent With Patient Total time spent is greater than 50% in coordination of care (as documented) at patient's floor/unit and/or counseling patient: - Narrative A/P Narrative: 74-year-old female with underlying COPD presents with progressive cough, sputum production and dyspnea. Pneumonia with sepsis. Improving. White count stable at 13,000. Chest x-ray significantly improved. Presentation, patient with evidence of right-sided infiltrate, had productive cough and leukocytosis consistent with pneumonia. Based on tachycardia, tachypnea and leukocytosis, meets SIRS criteria for sepsis. Lactate was normal, not severe sepsis. Continue ceftriaxone and azithromycin for presumptive community-acquired pneumonia RVP, mycoplasma serology, pneumococcal antigen negative Follow-up sputum culture, no pathogens isolated to date Discontinue monitoring, transfer to the floor Likely stable for discharge in 24-48 hours COPD with acute exacerbation. Improving. Initially patient with prolonged ex piratory phase and some wheezing on exam. Appears tight. This is likely triggered by her underlying pneumonia. Continue home inhalers Continue scheduled DuoNeb, extend to every 6 hours Continue as needed albuterol Change from IV to p.o. steroids Acute on chronic hypoxic respiratory failure. Returning to baseline. Normally takes up to 2 L of oxygen at night. Initially was requiring 4 L to maintain low 90s saturation. Likely secondary to above. Supplemental oxygen as needed Lower extremity edema. No history of congestive heart failure. One further dose of furosemid [facility] on CKD, solitary kidney. Patient has had total nephrectomy due to renal cell carcinoma (initial partial nephrectomy, with subsequent removal of remainder of kidney) creatinine was 3.2 recently, 4.0 at admission. This may be due to sepsis. Back to baseline of 3.2. Renally dose meds Avoid nephrotoxins Closely follow renal function If worsening, may need to involve nephrology Type 2 diabetes. Diabetic diet, sliding scale insulin, ADA diet CODE STATUS: Full code Prophylaxis: Heparin Medical - PN: Qual - VTE Deep Vein Thrombosis/Pulmonary Embolism Present on Admission: No
[2019-09-13] MEDS ORDERED: IPRATROPIUM/ALBUTEROL 3 ML AMPUL.NEB NEB SCH (15:00)
[2019-09-13] MEDS ORDERED: BENZOCAINE/MENTHOL 1 LOZENGE PO PRN (16:23)
[2019-09-13] MEDS ORDERED: BENZOCAINE/MENTHOL 1 LOZENGE PO ONE (16:27)
[2019-09-13] MEDS ORDERED: SIMVASTATIN 40 MG TABLET PO SCH (21:00)
[2019-09-13] MEDS ORDERED: INSULIN GLARGINE, HUMAN 1 UNIT/0.01 ML SQ SCH (21:00)
[2019-09-14] MEDS: IPRATROPIUM/ALBUTEROL 3 ML AMPUL.NEB NEB SCH ×2 (00:31→07:03)
[2019-09-14] MEDS: 0.9 % SODIUM CHLORIDE 10 ML SYRINGE IV SCH (04:45)
[2019-09-14] MEDS: guaiFENesin/DEXTROMETHORPHAN ORAL SOL PO PRN ×2 (04:49→09:09)
[2019-09-14 07:12] LABS: Basophils # (Auto) 0.02 K/mcL (0.00-0.30); Basophils % (Auto) 0.1 % (0.0-2.0); Eosinophils # (Auto) 0 K/mcL (0.00-0.70); Eosinophils % (Auto) 0 % (0.0-7.0); Granulocytes % (Auto) 94.1 % (38.0-78.0); Hematocrit 30.2 % (34.1-44.9); Hemoglobin 9.6 g/dL (11.2-15.7); Lymphocytes # (Auto) 0.48 K/mcL (1.50-4.80); Lymphocytes % (Auto) 3.1 % (15.5-49.0); Mean Cell Volume 94.7 fL (80.0-100.0); Mean Corpuscular HGB Conc 31.8 g/dL (31.0-36.0); Mean Platelet Volume 11.6 fL (7.4-10.4); Monocytes # (Auto) 0.41 K/mcL (0.10-0.90); Monocytes % (Auto) 2.7 % (1.0-12.0); Platelet Count 178 K/mcL (140-440); RBC 3.19 M/mcL (3.59-5.38); Red Cell Distribution Width 14.3 % (11.5-14.5); WBC 15.5 K/mcL (4.50-11.00)
[2019-09-14] MEDS: INSULIN LISPRO 1 UNIT/0.01 ML UNIT SQ SCH (07:25)
[2019-09-14 07:29] LABS: Blood Urea Nitrogen 92 mg/dl (8-23); Calcium 8.6 mg/dl (8.6-10.4); Carbon Dioxide 16 mmol/L (22-30); Chloride 101 mmol/L (96-108); Glomerular Filtration Rate 12; Glucose 184 mg/dL (70-105)
[2019-09-14] MEDS ORDERED: PANTOPRAZOLE 40 MG TABLET PO SCH (07:30)
[2019-09-14] MEDS ORDERED: predniSONE 20 MG TABLET PO SCH (08:00)
[2019-09-14] MEDS: DOCUSATE SODIUM 100 MG CAPSULE PO SCH (08:59)
[2019-09-14] MEDS: CARVEDILOL 12.5 MG TABLET PO SCH (08:59)
[2019-09-14] MEDS: HEPARIN 5,000 UNIT/ML VIAL SQ SCH (08:59)
[2019-09-14] MEDS ORDERED: ALLOPURINOL 300 MG TABLET PO SCH (09:00)
[2019-09-14] MEDS ORDERED: Fluticasone/Vilanterol [Breo Ellipta] 200-25 Mcg Inhaler INH SCH (09:00)
[2019-09-14] MEDS ORDERED: cefTRIAXone 1 GM VIAL IV SCH (09:00)
--- NOTE | 2019-09-14 09:34 | Discharge Summary ---
Medical - DS: Prov Patient information: Note initiated : 09/14/19 at 9:27 am Service Date, if different from initiated Date: [] Patient: Kellee Heller 74 y/o F admitted on 09/11/19 for shortness of breath x3 days with fever/cough. Chief Complaint: [] Date of admission: 09/11/19 13:39 Discharge date: 09/14/19 Primary care physician: Debra Mcclure DO Attending physician on admission: Carmen Linares Consults: 09/11/19 Consult to Physician [CONS] Stat Comment: Consulting Provider: Carmen Linares Reason For Exam: Physician to Consult Attending physician on discharge: Carmen Linares Medical - DS: Meds - Discharge Medications Prescriptions: Cefdinir 300 mg PO DAILY #3 cap Transmission Status: Pending to [facility] predniSONE [Prednisone] 40 mg PO [facility] #7 tab Transmission Status: Pending to [facility] Active and Home Medications: Home Medications allopurinol 100 mg tablet 300 mg PO QDAY tab 03/26/17 [History Confirmed 09/11/19 Last Taken Unknown] vitamin B complex 1 tab-cap PO QDAY 03/26/17 [History Confirmed 09/11/19 Last Taken Unknown] simvastatin 40 mg tablet 40 mg PO QPM tab 08/11/17 [History Confirmed 09/11/19 Last Taken Unknown] fluticasone furoate 200 mcg-vilanterol 25 mcg/dose inhalation powder 1 inh INHALATION Q24H 12/07/17 [History Confirmed 09/11/19 Last Taken Unknown] umeclidinium 62.5 mcg/actuation blister powder for inhalation 1 inh INHALATION Q24H 12/07/17 [History Confirmed 09/11/19 Last Taken Unknown] omega-3 fatty acids 300 mg capsule 500 mg PO .once a day cap 07/04/18 [History Confirmed 09/11/19 Last Taken Unknown] omeprazole 20 mg tablet,delayed release 20 mg PO .q.o.d tab 07/04/18 [History Confirmed 09/11/19 Last Taken Unknown] insulin glargine U-300 conc 300 unit/mL (1.5 mL) subcutaneous pen 10 unit SUB-Q QHS #4.5 ml 05/29/19 [Rx Confirmed 09/11/19 Last Taken Unknown] carvedilol 6.25 mg tablet 12.5 mg PO BID tab 07/24/19 [History Confirmed 09/11/19 Last Taken Unknown] insulin lispro 100 unit/mL subcutaneous pen 5 unit SUB-Q QHS #15 ml 07/27/19 [Rx Confirmed 09/11/19 Last Taken Unknown] Pen Needle, Diabetic [Incontrol Pen Needle] See Dose Instructions dose .ROUTE .MEDSUPPLY 09/11/19 [History Confirmed 09/11/19 Last Taken Unknown] Medical - DS: Hosp Hospital Course: In summary, the patient 75-year-old female with advanced COPD admitted with community-acquired pneumonia and COPD exacerbation. She improved with antibiotics and aggressive bronchodilators and pulmonary toilet. She is being discharged on prednisone taper and continue course of antibiotics. At follow- up, recheck CBC to monitor white count with completion of steroids. 09/11 Ms. Heller is a 74 year old F with a history of type 2 diabetes, chronic kidney disease, COPD on nocturnal oxygen who presents with cough and dyspnea. Patient states she developed cough about 3 days ago, productive of grayish sputum. Since then she is developed progressive dyspnea. She normally uses oxygen at night, started using it during the day to help with her shortness of breath. She has not noted a fever, has had no shaking chills. Yesterday afternoon she developed lower right-sided chest pain which was worse with coughing and deep inspiration. For the last 2 nights she has been sleeping upright secondary to shortness of breath when trying to lay back. Patient has no history of heart failure, does have lower extremity edema at baseline and feels it is not worse than usual. She denies any chest pain or tightness or pressure. She said no nausea or vomiting. She is had no headache or myalgia, has had some mild rhinorrhea. She did receive influenza vaccine this year. In the emergency department, the patient was requiring up to 4 L nasal cannula to maintain oxygen saturations in the low 90s. Her white count was 22,000. Her creatinine is elevated to 4.0, her most recent creatinine being 3.2 (patient has solitary kidney, status post partial, then eventual resection of left kidney for renal cell carcinoma with recurrence). Chest x-ray revealed moderate right infiltrate, more perihilar as well as some mild left-sided findings. These were felt to be infection versus edema. Further evaluation with CT was suggested, however the patient was too dyspneic to lie in the scanner. She is being admitted for treatment of pneumonia with sepsis. 09/12 Patient improved. It took several hours for her to start to improve yesterday afternoon, did receive 40 mg of Lasix which also seemed to help her respiratory status. Still up in a recliner, though not having to sit upright and tripoding. Respirations less labored today. Nonproductive cough. Appetite is improving. 09/13/2019 Continues to feel improved, using 2 L of oxygen, back to her baseline (though usually just uses at night). Has not tried sleeping recumbent, more so because she feels comfortable in the recliner. Has been ambulating in the nurses station without significant dyspnea. Creatinine back down to 3.2, her baseline from 04/2019 Feels back to baseline, no longer requiring oxygen while at rest, which is her baseline. Cough is improved. No wheezing, no dyspnea. Was able to sleep in a bed reclined. Chest x-ray yesterday showed improvement. White count still about 15,000, possible steroid effect. Discharge diagnosis: Community-acquired pneumonia with sepsis Secondary discharge diagnosis: Pneumonia with sepsis. Lactate was normal, not severe sepsis. Discharge on cefdinir RVP, mycoplasma serology, pneumococcal antigen negative COPD with acute exacerbation. Discharge on rapid prednisone taper, home regimen Acute on chronic hypoxic respiratory failure. Resolved, at baseline Lower extremity edema. No history of congestive heart failure. VIVIANA on CKD, solitary kidney. Threatening 4.0 admission, returning to baseline, 3.23.4 at discharge. Type 2 diabetes. - Time Spent with Patient Total time spent providing and/or coordinating discharge services: Greater than 30 minutes Medical - DS: Exam - Constitutional Vitals: Vital Signs Temp Pulse Pulse Resp BP BP Pulse Ox 09/14/19 08:00 97.5 F 90 20 127/69 92 09/14/19 07:15 84 16 92 09/14/19 07:06 90 15 95 09/14/19 04:34 97.3 F 80 20 148/74 93 09/14/19 00:32 88 24 H 09/14/19 00:29 97.5 F 88 16 115/69 96 09/13/19 19:05 97.7 F 81 16 138/78 92 09/13/19 18:45 87 20 09/13/19 16:00 97.2 F 84 18 127/65 91 09/13/19 13:45 86 20 96 09/13/19 12:00 97.6 F 76 18 146/89 99 09/13/19 11:42 88 20 96 09/13/19 11:30 87 21 Intake and Output 09/13/19 09/14/19 09/14/19 21:59 05:59 13:59 Intake Total 390 50 240 Output Total 1050 500 Balance -660 -450 240 Intake: Oral 390 50 240 Output: Void Amount 1050 500 Other: Meal Dinner Breakfast Percent of Meal Consumed 85% 75% Feeding Ability Independent Independent Urine Appearance Clear Urine Color Straw Bright Yellow Urine Odor Normal Weight 187 lb 4.8 oz Additional comments: General: Sitting up in chair no acute distress, looks well Chest: Good aeration bilaterally with no wheezes. No prolonged expiratory phase Cardiovascular: Regular, no murmur, 2+ edema Abdomen: Soft Neuro: Alert, oriented x3, nonfocal. Medical - DS: Data Labs on day of discharge: Labs from last 24 hours 09/14/19 09/14/19 06:18 06:18 WBC 15.5 H RBC 3.19 L Hgb 9.6 L Hct 30.2 L MCV 94.7 MCH 30.1 MCHC 31.8 RDW 14.3 Plt Count 178 MPV 11.6 H Gran % 94.1 H Lymph % (Auto) 3.1 L [place] % (Auto) 2.7 Eos % (Auto) 0 Baso % (Auto) 0.1 Gran # 14.54 H Lymph # (Auto) 0.48 L [place] # (Auto) 0.41 Eos # (Auto) 0 Baso # (Auto) 0.02 Sodium 134 Potassium 4.4 Chloride 101 Carbon Dioxide 16 L Anion Gap 17.0 H BUN 92 H Creatinine 3.5 H GFR Calculation 12 Glucose 184 H Calcium 8.6 Magnesium 2.1 Preliminary micro results at discharge 09/11/19 10:50 Blood Culture - Preliminary Blood 09/11/19 11:05 Blood Culture - Preliminary Blood - Impressions CXR 09/13 IMPRESSION: Improving right lung infiltrate with mild perihilar residual Moderate posterior left lower lobe infiltrate also improving. Small left pleural effusion unchanged Moderate hiatal hernia - please consider aspiration risk CXR 09/11 IMPRESSION: Moderate right lung interstitial infiltrate or edema is most prominent in the right perihilar region and smaller patchy left basilar infiltrate are new from previous x-ray. Consider: repeat chest CT given the complexity of this pulmonary pattern. (Chest CT not obtained, patient could not lay flat and follow-up CXR showed improvement prior to discharge) Medical - DS: A/P - Patient/Caregiver Discharge Instructions Activity: increase activity as tolerated, wear oxygen at night Diet: Consistent Carbohydrate Prescriptions: Cefdinir 300 mg PO DAILY #3 cap Transmission Status: Pending to [facility] predniSONE [Prednisone] 40 mg PO [facility] #7 tab Transmission Status: Pending to [facility] - Follow up Plan Follow up with: Debra Mcclure DO [Primary Care Provider] - (7-10 days) Disposition: Home, Self-Care Prognosis: Good Rehab Potential: Good Overall status at discharge: patient is back to baseline Medical - DS: Qual - VTE Deep Vein Thrombosis/Pulmonary Embolism Present on Admission: No
== END 2019-09-14 11:25 | disposition home or self-care (01) | DRG 871 ==
LOC: ED 10:31 → ICU 13:39 → MEDSUR 09-13 13:35
PROVIDERS: ADMIT Internal Medicine; ATTEND Internal Medicine

== ENCOUNTER 2020-08-09 10:17 | Inpatient (IN) ==
[2020-08-09] MEDS ORDERED: ACETAMINOPHEN 325 MG TABLET PO ONE (10:41)
--- NOTE | 2020-08-09 10:43 | Emergency Department Note ---
HPI General Chief complaint: Skin/Abscess/Rash Stated complaint: cellulitis Time Seen by Provider: 08/09/20 10:31 Source: patient Mode of arrival: ambulatory Limitations: no limitations History of Present Illness HPI Narrative: Narrative: 74-year-old female patient referred to the emergency department from with chief complaint of persistent unilateral right lower leg swelling, erythema, and pain. Patient was seen in [facility] care on 07/24 and that time she was diagnosed with cellulitis of the right lower leg. She was started on both doxycycline 100 mg twice daily in conjunction with Keflex 250 mg twice daily. Unfortunately, her symptoms have not improved. She has end-stage kidney disease and is currently in the process of getting a peritoneal dialysis catheter placed. She was in consult with her gas scrubber operator (Dr. Yee) who then referred to the emergency department for ongoing evaluation. Upon arrival, patient complains of exquisite pain that tends to worsen when she ambulates. Patient also complains of a mild wave like pain to her right lower thorax. She admits this has been there for proxy 1 week. She denies preceding trauma. Patient is known history of COPD and is currently somewhat hypoxic with an SPO2 88% on 2 L of oxygen via nasal cannula. ROS: Denies systemic illness, fever, sweats, chills. Denies headaches, tinnitus, or vision changes. Denies runny nose, sinus congestion, or cough. Denies retrosternal chest pain or palpitations. Denies abdominal pain, nausea, vomiting, or diarrhea. Admits to generalized weakness. Related Data Home Medications Medication Instructions Recorded Confirmed vitamin B complex 1 tab-cap PO QDAY 03/26/17 08/09/20 simvastatin 40 mg tablet 40 mg PO QPM tab 08/11/17 08/09/20 umeclidinium 62.5 mcg/actuation 1 inh INHALATION Q24H 12/07/17 08/09/20 blister powder for inhalation omeprazole 20 mg tablet,delayed 20 mg PO DAILY tab 07/04/18 08/09/20 release carvedilol 6.25 mg tablet 12.5 mg PO BID tab 07/24/19 08/09/20 pen needle, diabetic 09/11/19 08/09/20 fluticasone furoate-vilanterol 1 each IH DAILY 10/12/19 08/09/20 Previous Rx's Medication Instructions Recorded glipizide 10 mg tablet 10 mg PO QDAY #90 tab 05/07/20 torsemide 20 mg tablet 20 mg PO QDAY #90 tab 05/07/20 blood sugar diagnostic #300 each 05/29/20 insulin glargine U-300 conc 300 10 unit SUB-Q QHS #4.5 ml 06/20/20 unit/mL (1.5 mL) subcutaneous pen insulin lispro 100 unit/mL 5 unit SUB-Q QHS #15 ml 07/04/20 subcutaneous pen cephalexin 250 mg capsule 250 mg PO BID #10 cap 07/30/20 Allergies Allergy/AdvReac Type Severity Reaction Status Date / Time Sulfa (Sulfonamide AdvReac Mild Itching Verified 07/24/20 11:48 Antibiotics) Review of Systems ROS ROS Narrative: Narrative: All systems ED: reviewed and negative except as stated. [facility] Narrative Patient History Narrative: Narrative: Medical/Surgical/Family History All Active Problems (Updated 08/09/20 @ 13:10 by Venkatesh Farr PA-C) End stage chronic kidney disease (Acute) COPD (chronic obstructive pulmonary disease) (Acute) Cellulitis of right lower leg (Acute) Medicare annual wellness visit, subsequent (Acute) Benign neoplasm of colon (Chronic) Diverticulosis (Chronic) Community acquired pneumonia (Acute) CKD (chronic kidney disease) (Acute) COPD exacerbation (Acute) Tremor (Acute) Hyperparathyroidism due to renal insufficiency (Chronic) Anemia (Chronic) Toe pain, right (Acute) Rash (Acute) Cervical dystonia (Chronic) ALEXANDRA (obstructive sleep apnea) (Chronic) Sinus problem (Chronic) Hypertension (Chronic) High cholesterol (Chronic) Gout (Chronic) GERD (gastroesophageal reflux disease) (Chronic) Diabetes (Chronic) Arthritis (Chronic) Chronic obstructive lung disease (Chronic) Medical History Anemia (Chronic) Anemia (Chronic) Arthritis (Chronic) Benign neoplasm of colon (Chronic) Bronchitis (Resolved) Cancer (Resolved) Cervical dystonia (Chronic) Chronic obstructive lung disease (Chronic) CKD (chronic kidney disease) stage 4, GFR 15-29 ml/min (Chronic) Cough (Resolved) Diabetes (Chronic) Diverticulosis (Chronic) Emphysema lung (Chronic) GERD (gastroesophageal reflux disease) (Chronic) Gout (Chronic) High cholesterol (Chronic) History of nephrectomy, unilateral (Resolved) left, December 2016, partial Sep 2014 History of pneumococcal infection (Resolved) Hyperparathyroidism due to renal insufficiency (Chronic) Hypertension (Chronic) Kidney disease (Resolved) Medicare annual wellness visit, subsequent (Acute) ALEXANDRA (obstructive sleep apnea) (Chronic) Osteoporosis (Chronic) Pneumonia (Resolved) Posterior rhinorrhea (Resolved) Renal cell carcinoma (Chronic) S/p nephrectomy (Chronic) left kidney 12/2016 Single kidney (Chronic) Sinus problem (Chronic) Sleep apnea (Chronic) Stomach problems (Resolved) Surgical History History of cholecystectomy (Chronic) History of colonoscopy (Chronic 10/12/11) Dr Parent History of joint replacement (Resolved) History of joint surgery (Chronic) explore/treat ankle joint History of orthopedic surgery (Resolved) repair carpal bone shorten History of partial nephrectomy (Chronic) 09/2014 History of right hip replacement (Chronic) 2013 History of tonsillectomy (Chronic) S/P hip replacement (Chronic) S/P tubal ligation (Chronic) Family History Father , at age 76 from copd No pertinent family history Mother , copd, renal disease and diabetes No problems noted. Social History Smoking Status: Former smoker Alcohol Intake Frequency: holiday/special occasion only Substance Use: does not use Exam Narrative Narrative: Narrative: General Limitations: no limitations General appearance: Present other (Well-developed, well-nourished, chronically ill-appearing 74-year-old female patient sitting upright on the emergency room [facility] in no acute respiratory distress. She is using nasal cannula oxygen. No nasal flaring. No accessory muscle use. She is speaking in complete sentences. She is afebrile, hypoxic at 88%, other vital signs are normal.) Head Head: Present normocephalic Eye Eye: Present normal appearance, PERRL and EOMI; Absent scleral icterus and conjunctival injection ENT ENT: Present normal oropharynx and mucous membranes moist Neck Neck: Present trachea midline; Absent lymphadenopathy and thyromegaly Chest Chest: Present symmetric chest wall rise Respiratory Respiratory: Present prolonged expiratory phase and decreased breath sounds; Absent normal lung sounds bilaterally, respiratory distress, rales/crackles, wheezes, stridor and accessory muscle use Cardiovascular Cardiovascular: Present regular rate and normal rhythm; Absent systolic murmur and diastolic murmur Expanded Lower Extremity Hip/Pelvis: Present normal inspection and full ROM; Absent tenderness Upper leg: Present normal inspection and full ROM; Absent tenderness Knee: Present normal inspection and full ROM; Absent tenderness Lower leg: Present full ROM, tenderness (Both lower legs are exquisitely tender to palpation.), swelling (Bilateral lower extremity edema. Greater on the right versus left. +2 pitting edema throughout the right lower leg.), erythema (Circumferential erythema to the right lower leg.), Homans' sign and Achilles tendon intact; Absent normal inspection, ecchymosis, deformity, crepitus and palpable cord Ankle: Present full ROM, tenderness, swelling and erythema; Absent normal inspection, ecchymosis, deformity, crepitus, dislocation, tenderness over talofibular lig, tenderness - navicular, tenderness - 5th metatarsal base, tenderness - fibular inferior tip and anterior draw sign Foot/toe: Present normal inspection, full ROM and swelling; Absent tenderness and erythema Neurovascular/Tendon: Present normal capillary refill; Absent pulse deficit, motor deficit and sensory deficit Gait: observed and limited by pain Back Back: Present normal inspection, full ROM and tenderness (Mild tenderness palpation to the area of the right thoracic musculature at the T8 10 area.); Absent CVA tenderness (R) and CVA tenderness (L) Back 1 view image: 1. Area of pain. No crepitus. Neurological Neurological: Present alert and oriented X3 Psychiatric Psychiatric: Present normal affect and normal mood Skin Skin: Present cool, dry and pallor Course Course Course Narrative: Patient has obvious unilateral swelling to her right lower leg. There is some circumferential erythema. This does not have a classic cellulitis appearance and appears to be more venous stasis. She is exquisitely tender to even light palpation throughout both of her lower legs. I am going to get an ultrasound of her right lower extremity looking for DVT. Also order some screening laboratory studies. We are to treat her pain initially with acetaminophen 975 mg p.o. Reevaluation(s) Reevaluation #1: A review of the patient's diagnostics show the following: CBC WBC 12.1, RBC 3.69, hemoglobin 11.0, hematocrit 34.3, platelets 171. Lactic acid 0.6. Chemistry panel BUN 135, creatinine 6.7, glucose 68, all others normal limits. Right venous duplex ultrasound of the lower extremity showing no evidence of DVT. After reviewing all the data I reached out to the patient's gas scrubber operator (Dr. Yee) and discussed the case with him. I informed him that patient did not have a DVT. She does not have classic cellulitis signs. She is tender throughout her lower leg with some erythema that is greater to the right versus left. I mentioned I thought this is venous stasis. However Dr. Yee assured me that the patient's symptoms of abruptly started 2 weeks ago and he is still cellulitis. However, she has failed outpatient oral antibiotic therapy with both Keflex and doxycycline. He recommended patient be admitted for IV antibiotics with coverage more towards anaerobes. Knowing this, I reached out to our hospitalist (Dr. Belle) Time: 12:07 Reevaluation #2: At this time Dr. Belle requested that blood cultures be obtained. He did mention starting the patient on Rocephin 2 g IV in conjunction with vancomycin per pharmacy dosing to cover, versus uncommon bacteria that may be causing her ongoing cellulitis. He did consent to admit the patient here to our facility for ongoing care. I put the orders in for the IV antibiotics as well as blood cultures. All further treatment decisions, modalities, and ultimate patient disposition will be carried out by Dr. Belle. Vital Signs Vital signs: Vital Signs Temperature 97.9 F 08/09/20 10:18 Pulse Rate 92 H 08/09/20 10:18 Respiratory Rate 18 08/09/20 10:18 Blood Pressure 153/77 08/09/20 10:18 Pulse Oximetry (%) 88 L 08/09/20 10:18 Temperature 97.9 F 08/09/20 15:50 Pulse Rate 75 08/09/20 15:50 Respiratory Rate 20 08/09/20 15:50 Blood Pressure 128/63 08/09/20 15:50 Pulse Oximetry (%) 100 08/09/20 15:50 MDM MDM Narrative Medical decision making narrative: Narrative: Lab Data Lab results reviewed: Yes I reviewed the patient's lab results. Result diagrams: 08/09/20 11:01 Labs: Lab Results 08/09/20 08/09/20 08/09/20 Range/Units 11:01 11:01 11:01 WBC 12.1 H (4.5-11.0) K/mcL RBC 3.69 L (4.00-5.20) M/mcL Hgb 11.0 L (12.0-15.0) g/dL Hct 34.3 L (36.0-48.0) % POC Hct 34 L (36-48) % MCV 93.0 (80.0-100.0) fL MCH 29.8 (26.0-34.0) pg MCHC 32.1 (31.0-36.0) g/dL RDW 13.2 (11.5-14.5) % Plt Count 171 (140-440) K/mcL MPV 10.9 H (7.4-10.4) fL Neut % (Auto) 79.3 H (38.0-78.0) % Lymph % (Auto) 8.8 L (15.0-49.0) % [place] % (Auto) 9.9 (1.0-12.0) % Eos % (Auto) 1.6 (0.0-7.0) % Baso % (Auto) 0.4 (0.0-2.0) % Lymph # (Auto) 1.06 L (1.50-4.80) K/mcL [place] # (Auto) 1.20 H (0.10-0.90) K/mcL Eos # (Auto) 0.19 (0.00-0.70) K/mcL Baso # (Auto) 0.05 (0.00-0.20) K/mcL Absolute Neutrophils 9.61 H (1.80-8.00) K/mcL VBG Lactic Acid 0.6 (0.5-2.0) mmol/L POC Sodium 136 (133-145) mEq/L POC Potassium 3.9 (3.3-5.1) mEql/L POC Chloride 100 (96-108) mEq/L POC Total CO2 25 (22-30) mmol/L POC BUN 135 H* (6-20) mg/dL POC Creatinine 6.7 H* (0.6-1.2) mg/dL POC Glucose 68 L (70-105) mg/dL POC WB Ioniz Calcium 1.32 (1.16-1.32) mmEq/L Procalcitonin (<0.10) ng/mL 08/09/20 Range/Units 11:01 WBC (4.5-11.0) K/mcL RBC (4.00-5.20) M/mcL Hgb (12.0-15.0) g/dL Hct (36.0-48.0) % POC Hct (36-48) % MCV (80.0-100.0) fL MCH (26.0-34.0) pg MCHC (31.0-36.0) g/dL RDW (11.5-14.5) % Plt Count (140-440) K/mcL MPV (7.4-10.4) fL Neut % (Auto) (38.0-78.0) % Lymph % (Auto) (15.0-49.0) % [place] % (Auto) (1.0-12.0) % Eos % (Auto) (0.0-7.0) % Baso % (Auto) (0.0-2.0) % Lymph # (Auto) (1.50-4.80) K/mcL [place] # (Auto) (0.10-0.90) K/mcL Eos # (Auto) (0.00-0.70) K/mcL Baso # (Auto) (0.00-0.20) K/mcL Absolute Neutrophils (1.80-8.00) K/mcL VBG Lactic Acid (0.5-2.0) mmol/L POC Sodium (133-145) mEq/L POC Potassium (3.3-5.1) mEql/L POC Chloride (96-108) mEq/L POC Total CO2 (22-30) mmol/L POC BUN (6-20) mg/dL POC Creatinine (0.6-1.2) mg/dL POC Glucose (70-105) mg/dL POC WB Ioniz Calcium (1.16-1.32) mmEq/L Procalcitonin 0.25 H (<0.10) ng/mL Radiology Data Radiology results reviewed: Yes I reviewed the patient's radiology results. Radiology results narrative: Duplex ultrasound of the right lower extremity showed no evidence of DVT. Discharge Plan Patient/Caregiver Discharge Instructions Pt seen by [employer]PRAISER/PA only: Yes Clinical Impression: Cellulitis of right lower leg, End stage chronic kidney disease COPD (chronic obstructive pulmonary disease) Qualifiers: COPD type: unspecified COPD Qualified Code(s): J44.9 - Chronic obstructive pulmonary disease, unspecified Patient Disposition: Xfer As Inpt ([facility]) Condition: Fair Discharge Date/Time: 08/09/20 15:16
[2020-08-09 11:21] LABS: POC Blood Urea Nitrogen 135 mg/dL (6-20); POC CO2 25 mmol/L (22-30); POC Calcium, Ionized 1.32 mmEq/L (1.16-1.32); POC Chloride 100 mEq/L (96-108); POC Creatinine 6.7 mg/dL (0.6-1.2); POC Glucose, Random 68 mg/dL (70-105); POC Hematocrit 34 % (36-48); POC Potassium 3.9 mEql/L (3.3-5.1); POC Sodium 136 mEq/L (133-145)
[2020-08-09 11:44] LABS: Basophils # (Auto) 0.05 K/mcL (0.00-0.20); Basophils % (Auto) 0.4 % (0.0-2.0); Eosinophils # (Auto) 0.19 K/mcL (0.00-0.70); Eosinophils % (Auto) 1.6 % (0.0-7.0); Hematocrit 34.3 % (36.0-48.0); Lymphocytes # (Auto) 1.06 K/mcL (1.50-4.80); Lymphocytes % (Auto) 8.8 % (15.0-49.0); Mean Corpuscular HGB Conc 32.1 g/dL (31.0-36.0); Mean Platelet Volume 10.9 fL (7.4-10.4); Monocytes % (Auto) 9.9 % (1.0-12.0); Neutrophils % (Auto) 79.3 % (38.0-78.0); Platelet Count 171 K/mcL (140-440); RBC 3.69 M/mcL (4.00-5.20); Red Cell Distribution Width 13.2 % (11.5-14.5); WBC 12.1 K/mcL (4.5-11.0)
[2020-08-09] MEDS ORDERED: VANCOMYCIN PER PHARMACY IV ONE (12:37)
[2020-08-09] MEDS ORDERED: cefTRIAXone 2 GM in DEXTROSE 5% IN WATER 50 ML IV ONE (12:37)
--- NOTE | 2020-08-09 12:52 | Internal Med History&Physical ---
HPI History of Present Illness Patient information: Note initiated : 08/09/20 at 12:52 pm Service Date, if different from initiated Date: [] Patient: Kellee Heller a 74 y/o F admitted on for cellulitis. Chief Complaint: Right lower extremity swelling pain/cellulitis failed outpatient treatment History of present illness: Ms. Heller is a 74 year old F with a history of end- stage renal disease managed by laborer pipeline Dr. Yee. Over the last couple of weeks patient noted increasing redness/pain and swelling around the right ankle extending up to the lower one third of leg. Symptoms gradually progressed with intensifying pain and redness and swelling. A week later she noted left lower extremity pain and swelling. She was evaluated in the minor care on 07/24 and was diagnosed with cellulitis right lower extremity and was started on doxycy garces/Keflex. However despite treatment patient symptoms fail to resolve. She was referred by her laborer pipeline to the ER today due to worsening symptoms increasing pain and difficulty ambulation. Initial work-up in the ER was consistent with right lower externally cellulitis. Negative Doppler ultrasound for DVT. Patient was started on Rocephin/vancomycin. Subsequently hospital service was consulted after case was discussed with laborer pipeline who recommended admission At the time of my evaluation patient is alert and oriented. She denies active distress. She denies trauma/open wound or draining sores. She has not had similar symptoms or recurrent skin infection in the past. She denies diarrhea, dysuria, bloody stool, fever, chills. She further denies chest pain, shortness of breath headache lightheadedness or dizziness. Review of systems 10 point review system was performed and is negative except for ones cussed above PFSH PFSH All Active Problems (Updated 08/09/20 @ 13:10 by Venkatesh Farr PA-C) End stage chronic kidney disease (Acute) COPD (chronic obstructive pulmonary disease) (Acute) Cellulitis of right lower leg (Acute) Medicare annual wellness visit, subsequent (Acute) Benign neoplasm of colon (Chronic) Diverticulosis (Chronic) Community acquired pneumonia (Acute) CKD (chronic kidney disease) (Acute) COPD exacerbation (Acute) Tremor (Acute) Hyperparathyroidism due to renal insufficiency (Chronic) Anemia (Chronic) Toe pain, right (Acute) Rash (Acute) Cervical dystonia (Chronic) ALEXANDRA (obstructive sleep apnea) (Chronic) Sinus problem (Chronic) Hypertension (Chronic) High cholesterol (Chronic) Gout (Chronic) GERD (gastroesophageal reflux disease) (Chronic) Diabetes (Chronic) Arthritis (Chronic) Chronic obstructive lung disease (Chronic) Medical History Anemia (Chronic) Anemia (Chronic) Arthritis (Chronic) Benign neoplasm of colon (Chronic) Bronchitis (Resolved) Cancer (Resolved) Cervical dystonia (Chronic) Chronic obstructive lung disease (Chronic) CKD (chronic kidney disease) stage 4, GFR 15-29 ml/min (Chronic) Cough (Resolved) Diabetes (Chronic) Diverticulosis (Chronic) Emphysema lung (Chronic) GERD (gastroesophageal reflux disease) (Chronic) Gout (Chronic) High cholesterol (Chronic) History of nephrectomy, unilateral (Resolved) left, December 2016, partial Sep 2014 History of pneumococcal infection (Resolved) Hyperparathyroidism due to renal insufficiency (Chronic) Hypertension (Chronic) Kidney disease (Resolved) Medicare annual wellness visit, subsequent (Acute) ALEXANDRA (obstructive sleep apnea) (Chronic) Osteoporosis (Chronic) Pneumonia (Resolved) Posterior rhinorrhea (Resolved) Renal cell carcinoma (Chronic) S/p nephrectomy (Chronic) left kidney 12/2016 Single kidney (Chronic) Sinus problem (Chronic) Sleep apnea (Chronic) Stomach problems (Resolved) Surgical History History of cholecystectomy (Chronic) History of colonoscopy (Chronic 10/12/11) Parent History of joint replacement (Resolved) History of joint surgery (Chronic) explore/treat ankle joint History of orthopedic surgery (Resolved) repair carpal bone shorten History of partial nephrectomy (Chronic) 09/2014 History of right hip replacement (Chronic) 2013 History of tonsillectomy (Chronic) S/P hip replacement (Chronic) S/P tubal ligation (Chronic) Family History Father , at age 76 from copd No pertinent family history Mother , copd, renal disease and diabetes No problems noted. Social History household members: spouse smoking status: Former smoker quit date: 09/13/86 pack-years: 18 alcohol intake frequency: holiday/special occasion only substance use type: does not use MEDS/ALLERGIES Home Medications and Allergies Home Medications Medication Instructions Recorded Confirmed Type vitamin B complex 1 tab-cap PO QDAY 03/26/17 07/24/20 History simvastatin 40 mg tablet 40 mg PO QPM tab 08/11/17 07/24/20 History umeclidinium 62.5 mcg/actuation 1 inh INHALATION Q24H 12/07/17 07/24/20 History blister powder for inhalation omeprazole 20 mg tablet,delayed 20 mg PO DAILY tab 07/04/18 07/24/20 History release carvedilol 6.25 mg tablet 12.5 mg PO BID tab 07/24/19 07/24/20 History pen needle, diabetic 09/11/19 07/24/20 History fluticasone furoate-vilanterol 1 each IH DAILY 10/12/19 07/24/20 History glipizide 10 mg tablet 10 mg PO QDAY #90 tab 05/07/20 07/24/20 Rx torsemide 20 mg tablet 20 mg PO QDAY #90 tab 05/07/20 07/24/20 Rx blood sugar diagnostic #300 each 05/29/20 07/24/20 Rx insulin glargine U-300 conc 300 10 unit SUB-Q QHS #4.5 ml 06/20/20 07/24/20 Rx unit/mL (1.5 mL) subcutaneous pen insulin lispro 100 unit/mL 5 unit SUB-Q QHS #15 ml 07/04/20 07/24/20 Rx subcutaneous pen cephalexin 250 mg capsule 250 mg PO BID #10 cap 07/30/20 Rx Allergies Allergy/AdvReac Type Severity Reaction Status Date / Time Sulfa (Sulfonamide AdvReac Mild Itching Verified 07/24/20 11:48 Antibiotics) EXAM Constitutional Vitals: Temp Pulse Resp BP Pulse Ox 97.9 F 83 18 116/56 100 08/09/20 10:18 08/09/20 12:32 08/09/20 10:18 08/09/20 12:32 08/09/20 12:32 Anxious Head normocephalic Oral cavity moist No ear nose discharge Eye movement symmetrical Neck supple no lymphadenopathy S1-S2 occasionally irregular Nonlabored breathing Nondistended nontender abdomen Bilateral lower extremity redness/swelling and induration extending from ankle to the lower one third of leg. Right more than left, no joint swelling or lymphedema, upper extremity fistula Skin otherwise no suspicious lesion Psych no hallucinations Neuro normal higher function DATA Data Completed and Pending Labs: Labs from last 24 hours 08/09/20 08/09/20 08/09/20 11:01 11:01 11:01 WBC 12.1 H RBC 3.69 L Hgb 11.0 L Hct 34.3 L POC Hct 34 L MCV 93.0 MCH 29.8 MCHC 32.1 RDW 13.2 Plt Count 171 MPV 10.9 H Neut % (Auto) 79.3 H Lymph % (Auto) 8.8 L Lucas % (Auto) 9.9 Eos % (Auto) 1.6 Baso % (Auto) 0.4 Lymph # (Auto) 1.06 L Lucas # (Auto) 1.20 H Eos # (Auto) 0.19 Baso # (Auto) 0.05 Absolute Neutrophils 9.61 H VBG Lactic Acid 0.6 POC Sodium 136 POC Potassium 3.9 POC Chloride 100 POC Total CO2 25 POC BUN 135 H* POC Creatinine 6.7 H* POC Glucose 68 L POC WB Ioniz Calcium 1.32 A/P Narrative A/P Narrative: * Right lower extremity cellulitis failed outpatient treatment-patient Zosyn vancomycin. Cultures drawn. No fluctuance or evidence of deep-seated infection. Doppler ultrasound negative for DVT * History of hypertension continue Coreg * DM type II continue basal prandial insulin * History of COPD continue fluticasone * GERD continue PPI * Hyperlipidemia continue statin * CKD stage IV. Managed by Dr. Yee. Creatinine at 6 * Full code * Prophylaxis heparin Plan * Inpatient admission in light of failed outpatient treatment for lower extremity lightest * Antibiotic coverage * Pre-existing medical condition management home meds * Nephrology consult Time Spent With Patient Time: Total time spent is greater than 50% in coordination of care (as documented) at patient's floor/unit and/or counseling patient:
[2020-08-09] MEDS ORDERED: VANCOMYCIN 1,000 MG in 0.9 % SODIUM CHLORIDE 250 ML IV ONE (13:15)
[2020-08-09] MEDS ORDERED: VANCOMYCIN 1,250 MG in 0.9 % SODIUM CHLORIDE 500 ML IV ONE (13:15)
--- NOTE | 2020-08-09 14:07 | Ultrasound Report ---
Erythematous painful tender right leg TECHNIQUE: There is normal augmentation and compressibility of the deep veins and saphenous vein from the groin through the calf. Doppler shows normal waveform patterns. No mass or abnormal fluid collection are identified. IMPRESSION: Normal exam, without evidence of deep venous thrombosis Interpreted and Authenticated by: Jose Luis Ballesteros 08/09/20
[2020-08-09] MEDS ORDERED: PIPERACILLIN SODIUM/TAZOBACTAM 3.375 GM in DEXTROSE 5% IN WATER 50 ML IV SCH (15:30)
[2020-08-09] MEDS ORDERED: METOPROLOL TARTRATE 5 MG/5 ML VIAL IV PRN (15:30)
[2020-08-09] MEDS ORDERED: POLYETHYLENE GLYCOL 3350 17 GM PACKET PO PRN (15:30)
[2020-08-09] MEDS ORDERED: DEXTROSE 31 GM ORAL.SUSP PO PRN (15:30)
[2020-08-09] MEDS ORDERED: BISACODYL 10 MG SUPP.RECT PR PRN (15:30)
[2020-08-09] MEDS ORDERED: MAGNESIUM SULFATE 2 GM/50 ML BAG IV PRN (15:30)
[2020-08-09] MEDS ORDERED: ACETAMINOPHEN 650 MG/65 ML BOTTLE IV PRN (15:30)
[2020-08-09] MEDS ORDERED: hydrALAZINE 20 MG/ML VIAL IV PRN (15:30)
[2020-08-09] MEDS ORDERED: ONDANSETRON 4 MG ODT TABLET SL PRN (15:30)
[2020-08-09] MEDS ORDERED: DEXTROSE 50% 50 ML VIAL IV PRN (15:30)
[2020-08-09] MEDS ORDERED: VANCOMYCIN PER PHARMACY IV SCH (15:30)
[2020-08-09] MEDS: 0.9 % SODIUM CHLORIDE 10 ML SYRINGE IV SCH ×2 (16:34→21:43)
[2020-08-09] MEDS: PIPERACILLIN SODIUM/TAZOBACTAM 2.25 GM in DEXTROSE 5% IN WATER 50 ML IV SCH ×2 (16:36→21:53)
[2020-08-09] MEDS: 0.9 % SODIUM CHLORIDE 1,000 ML IV SCH (16:36)
[2020-08-09] MEDS: INSULIN LISPRO 1 UNIT/0.01 ML UNIT SQ SCH ×2 (16:45→21:09)
[2020-08-09] MEDS: CYANOCOBALAMIN (VITAMIN B-12) 500 MCG TABLET PO SCH (20:55)
[2020-08-09] MEDS: HEPARIN 5,000 UNIT/ML VIAL SQ SCH (20:56)
[2020-08-09] MEDS ORDERED: MELATONIN 3 MG TABLET PO PRN (21:00)
[2020-08-09] MEDS: DOCUSATE SODIUM 100 MG CAPSULE PO SCH (21:08)
[2020-08-09] MEDS: SENNOSIDES/DOCUSATE SODIUM 1 TAB TABLET PO SCH (21:09)
[2020-08-09] MEDS: ACETAMINOPHEN 325 MG TABLET PO PRN (23:19)
[2020-08-10] MEDS: 0.9 % SODIUM CHLORIDE 10 ML SYRINGE IV SCH ×3 (05:22→22:00)
[2020-08-10] MEDS: PIPERACILLIN SODIUM/TAZOBACTAM 2.25 GM in DEXTROSE 5% IN WATER 50 ML IV SCH ×3 (06:20→21:58)
[2020-08-10 07:21] LABS: Basophils # (Auto) 0.05 K/mcL (0.00-0.20); Basophils % (Auto) 0.5 % (0.0-2.0); Eosinophils # (Auto) 0.22 K/mcL (0.00-0.70); Eosinophils % (Auto) 2.1 % (0.0-7.0); Hematocrit 34.8 % (36.0-48.0); Hemoglobin 11.4 g/dL (12.0-15.0); Lymphocytes # (Auto) 0.91 K/mcL (1.50-4.80); Lymphocytes % (Auto) 8.8 % (15.0-49.0); Mean Cell Volume 92.1 fL (80.0-100.0); Mean Corpuscular HGB Conc 32.8 g/dL (31.0-36.0); Mean Platelet Volume 11.1 fL (7.4-10.4); Monocytes # (Auto) 0.99 K/mcL (0.10-0.90); Monocytes % (Auto) 9.6 % (1.0-12.0); Platelet Count 168 K/mcL (140-440); RBC 3.78 M/mcL (4.00-5.20); WBC 10.3 K/mcL (4.5-11.0)
[2020-08-10] MEDS: INSULIN LISPRO 1 UNIT/0.01 ML UNIT SQ SCH ×4 (07:38→22:00)
[2020-08-10] MEDS: DOCUSATE SODIUM 100 MG CAPSULE PO SCH ×2 (07:39→21:59)
[2020-08-10 08:29] LABS: Ferritin 753.8 ng/mL (30.0-400.0)
[2020-08-10 08:47] LABS: Vancomycin,Random 15.7 ug/mL
--- NOTE | 2020-08-10 08:55 | Internal Med Progress Note ---
SUBJECTIVE Subjective Patient information: Note initiated : 08/10/20 at 8:50 am Service Date, if different from initiated Date: [] Patient: Kellee Heller a 74 y/o F admitted on 08/09/20 for cellulitis. Chief Complaint: History of present illness: Ms. Heller is a 74 year old F with a history of end- stage renal disease managed by telephone technician Dr. Yee. Over the last couple of weeks patient noted increasing redness/pain and swelling around the right ankle extending up to the lower one third of leg. Symptoms gradually progressed with intensifying pain and redness and swelling. A week later she noted left lower extremity pain and swelling. She was evaluated in the minor care on 07/24 and w as diagnosed with cellulitis right lower extremity and was started on doxycycline/Keflex. However despite treatment patient symptoms fail to resolve. She was referred by her telephone technician to the ER today due to worsening symptoms increasing pain and difficulty ambulation. Initial work-up in the ER was consistent with right lower externally cellulitis. Negative Doppler ultrasound for DVT. Patient was started on Rocephin/vancomycin. Subsequently hospital service was consulted after case was discussed with telephone technician who recommended admission At the time of my evaluation patient is alert and oriented. She denies active distress. She denies trauma/open wound or draining sores. She has not had similar symptoms or recurrent skin infection in the past. She denies diarrhea, dysuria, bloody stool, fever, chills. She further denies chest pain, shortness of breath headache lightheadedness or dizziness. 08/10-Patient doing well. On antibiotic coverage. White count downtrending. No overnight fever chills nausea vomiting, nursing staff expressed concerns about episode of hypoglycemia with blood sugar 48. Insulin held. Likely secondary to sustained insulin effect in light of renal failure. Right lower extremity swelling and redness improving. Ambulating, complains of minimal back pain Constitutional Vitals: Vital Signs Temp Pulse Resp BP Pulse Ox 97.7 F 81 20 127/64 99 08/10/20 07:22 08/10/20 07:22 08/10/20 07:22 08/10/20 07:22 08/10/20 07:22 Period Temp Pulse Resp BP Sys/[place] Pulse Ox Last 24 Hr 97 F-97.9 F 75-92 18-20 100-153/40-77 88-100 Intake and Output 08/09/20 08/10/20 08/10/20 21:59 05:59 13:59 Intake Total 290 410 115 Output Total 600 16 Balance 290 -190 99 Weight 75.115 kg Alert oriented Nonlabored breathing No anxiety Right lower extremity redness swelling improved Intake & Output: Intake & Output 08/09/20 08/10/20 08/10/20 21:59 05:59 13:59 Intake Total 290 410 115 Output Total 600 16 Balance 290 -190 99 Weight 75.115 kg Intake: IV 50 50 115 Zosyn 2.25 gm In Dextrose 5% in 50 50 50 Water 50 ml @ 100 mls/hr IV Q8H [facility] Rx#:[id number] Oral 240 360 Output: Void Amount 600 15 # of times incontinent of urine 1 Other: Meal Dinner Cheese stick x1, & 1pk grahm crackers Percent of Meal Consumed 100% 100% Feeding Ability Independent Independent Urine Appearance Clear Clear Urine Color Bright Yellow Pale Urine Odor Normal Stool Size Large Small Smear Stool Color Brown Brown Stool Consistency Loose Soft # Voids 1 # of times incontinent of 1 Bowels OBJ DATA Labs CBC & Chem 7: 08/10/20 06:09 08/10/20 06:09 Labs: Abnormal Lab Results 08/10/20 08/10/20 08/09/20 06:09 06:09 11:01 WBC RBC 3.78 L Hgb 11.4 L Hct 34.8 L POC Hct MPV 11.1 H Neut % (Auto) 79.0 H Lymph % (Auto) 8.8 L Lymph # (Auto) 0.91 L Arroyo # (Auto) 0.99 H Absolute Neutrophils 8.17 H POC BUN POC Creatinine POC Glucose Ferritin 753.8 H C-Reactive Protein 2.30 H Procalcitonin 0.25 H 08/09/20 08/09/20 11:01 11:01 WBC 12.1 H RBC 3.69 L Hgb 11.0 L Hct 34.3 L POC Hct 34 L MPV 10.9 H Neut % (Auto) 79.3 H Lymph % (Auto) 8.8 L Lymph # (Auto) 1.06 L [place] # (Auto) 1.20 H Absolute Neutrophils 9.61 H POC BUN 135 H* POC Creatinine 6.7 H* POC Glucose 68 L Ferritin C-Reactive Protein Procalcitonin Meds: Medications Acetaminophen (Tylenol) 650 mg PO Q4-6HP PRN; Protocol PRN Reason: Per Pain Protocol/Fever > 101 Last Admin: 08/09/20 23:19 Dose: 650 mg Documented by: Bisacodyl (Dulcolax) 10 mg NM Q2-3DAYS PRN PRN Reason: Constipation Cyanocobalamin (Vitamin B-12) 1,000 mcg PO BID [facility] Stop: 08/14/20 09:01 Last Admin: 08/09/20 20:55 Dose: 1,000 mcg Documented by: Dextrose (Dextrose 50%) 0 ml IV UD PRN PRN Reason: Hypoglycemia Diagnostic Test (Pha) (Accu-Chek) 1 each [facility] Last Admin: 08/10/20 07:31 Dose: 1 each Documented by: Docusate Sodium (Colace) 100 mg PO BID [facility] Last Admin: 08/10/20 07:39 Dose: Not Given Documented by: Glucose (Insta-Glucose) 15 gm PO PRN PRN PRN Reason: Hypoglycemia Heparin Sodium (Porcine) (Heparin) 5,000 unit SQ Q12 [facility] Last Admin: 08/09/20 20:56 Dose: 5,000 unit Documented by: Hydralazine HCl (Apresoline) 10 mg IV Q4-6HP PRN PRN Reason: Hypertension Acetaminophen (Ofirmev) 650 mg in 65 mls @ 130 mls/hr IV Q6HP PRN; Protocol PRN Reason: Per Pain Protocol/Fever > 101 Last Infusion: 08/10/20 06:21 Dose: Infused Documented by: Magnesium Sulfate (Magnesium Sulfate) 2 gm in 50 mls @ 50 mls/hr IV UD PRN PRN Reason: MG = or < 1.7 Sodium Chloride (Sodium Chloride 0.9%) 1,000 mls @ 50 mls/hr IV .Q20H [facility] Stop: 08/12/20 03:29 Last Admin: 08/09/20 16:36 Dose: 50 mls/hr Documented by: Piperacillin Sod/Tazobactam (Sod 2.25 gm/ Dextrose) 50 mls @ 100 mls/hr IV Q8H [facility] Last Infusion: 08/10/20 06:50 Dose: Infused Documented by: Insulin Human Lispro (Humalog) 0 unit SQ [facility]; Protocol Last Admin: 08/10/20 07:38 Dose: Not Given Documented by: Iron Carb/Multivit/[place]/Folic Acid (Multivitamin W/Minerals) 1 tab PO DAILY [facility] Melatonin (Melatonin 3mg Tablet) 3 mg PO HSP PRN PRN Reason: Insomnia Last Admin: 08/10/20 02:52 Dose: 3 mg Documented by: Metoprolol Tartrate (Lopressor) 5 mg IV Q5M PRN PRN Reason: Heart Rate > 140 bpm Ondansetron HCl (Zofran Odt) 4 mg SL Q4-6HP PRN; Protocol PRN Reason: Nausea And Vomiting Ondansetron HCl (Zofran) 4 mg IV Q4-6HP PRN; Protocol PRN Reason: Nausea And Vomiting Polyethylene Glycol (Miralax) 17 gm PO DAILYP PRN PRN Reason: Constipation Senna/Docusate Sodium (Senna Plus Tablet) 1 tab PO HS [facility] Last Admin: 08/09/20 21:09 Dose: Not Given Documented by: Sodium Chloride (Saline Flush) 10 ml IV Q8 [facility] Last Admin: 08/10/20 05:22 Dose: Not Given Documented by: Vancomycin HCl (Vancomycin Per Pharmacy) 1 order IV UD [facility]; Protocol A/P Narrative A/P Narrative: * Right lower extremity cellulitis failed outpatient treatment-clinically improving on Zosyn vancomycin. Cultures pending. No fluctuance or evidence of deep-seated infection. Doppler ultrasound negative for DVT * History of hypertension stable on home dose Coreg * DM type II with episode of hypoglycemia. Hold insulin. * History of COPD stable on bronchodilators * GERD continue PPI * Hyperlipidemia continue statin * CKD stage IV. Managed by Dr. Yee. Creatinine at 6.7. Avoid nephrotoxins * Full code * Prophylaxis heparin Plan * Continue antibiotic coverage * Pre-existing medical condition management on home meds * Nephrology consult * PT OT nutrition support Time Spent With Patient Time: Total time spent is greater than 50% in coordination of care (as documented) at patient's floor/unit and/or counseling patient: QUALITY Stroke Symptom Onset Unknown: No VTE Deep Vein Thrombosis/Pulmonary Embolism Present on Admission: No
[2020-08-10] MEDS: CYANOCOBALAMIN (VITAMIN B-12) 500 MCG TABLET PO SCH ×2 (09:06→21:58)
[2020-08-10] MEDS: MULTIVIT,THER IRON,CA,FA & MIN 1 TABLET PO SCH (09:06)
[2020-08-10] MEDS: HEPARIN 5,000 UNIT/ML VIAL SQ SCH ×2 (09:07→22:00)
[2020-08-10 09:11] LABS: ALT/SGPT 7 U/L (<40); AST/SGOT 14 U/L (<32); Albumin 3.6 gm/dL (3.2-5.2); Albumin/Globulin Ratio 0.9 (1.0-2.3); Alkaline Phosphatase 85 U/L (39-117); Bilirubin,Direct < 0.2 mg/dL (<0.3); Bilirubin,Total 0.3 mg/dL (0.1-1.0); Blood Urea Nitrogen 114 mg/dL (8-23); Calcium 11.1 mg/dL (8.6-10.4); Carbon Dioxide 18 mmol/L (22-30); Chloride 96 mmol/L (96-108); Erythrocyte Sedimentation Rate 43 mm/hr (0-20); Globulin 3.9 gm/dL (2.2-3.7); Glomerular Filtration Rate 7; Glucose 139 mg/dL (70-105); Lactate Dehydrogenase 172 U/L (135-225); Phosphorous 7.6 mg/dL (2.5-4.5); Triglycerides 253 mg/dL (<150); Uric Acid 12.2 mg/dL (2.5-8.0)
[2020-08-10] MEDS: METHOCARBAMOL 500 MG TABLET PO PRN (10:56)
--- NOTE | 2020-08-10 12:37 | Internal Med Progress Note ---
SUBJECTIVE Subjective Patient information: Note initiated : 08/10/20 at 12:33 pm Service Date, if different from initiated Date: [] Patient: Kellee Heller a 74 y/o F admitted on 08/09/20 for cellulitis. Chief Complaint: [] Interval history: History of present illness: Ms. Heller is a 74 year old F with a history of end- stage renal disease managed by sheet metal pattern cutter Dr. Yee. Over the last couple of weeks patient noted increasing redness/pain and swelling around the right ankle extending up to the lower one third of leg. Symptoms gradually progressed with intensifying pain and redness and swelling. A week later she noted left lower extremity pain and swelling. She was evaluated in the [facility] on 07/24 and was diagnosed with cellulitis right lower extremity and was started on doxycycline/Keflex. However despite treatment patient symptoms fail to resolve. She was referred by her sheet metal pattern cutter to the ER today due to worsening symptoms increasing pain and difficulty ambulation. Initial work-up in the ER was consistent with right lower externally cellulitis. Negative Doppler ultrasound for DVT. Patient was started on Rocephin/van comycin. Subsequently hospital service was consulted after case was discussed with sheet metal pattern cutter who recommended admission At the time of my evaluation patient is alert and oriented. She denies active distress. She denies trauma/open wound or draining sores. She has not had similar symptoms or recurrent skin infection in the past. She denies diarrhea, dysuria, bloody stool, fever, chills. She further denies chest pain, shortness of breath headache lightheadedness or dizziness. 08/10-Patient doing well. On antibiotic coverage. White count downtrending. No overnight fever chills nausea vomiting, nursing staff expressed concerns about episode of hypoglycemia with blood sugar 48. Insulin held. Likely secondary to sustained insulin effect in light of renal failure. Right lower extremity swelling and redness improving. Ambulating, complains of minimal back pain Patient complains of intermittent spasmodic back pain. Was unable to sleep last night. Start Robaxin 500 twice daily as needed. 08/11 Constitutional Vitals: Vital Signs Temp Pulse Resp BP Pulse Ox 97.7 F 81 20 127/64 99 08/10/20 07:22 08/10/20 07:22 08/10/20 07:22 08/10/20 07:22 08/10/20 07:22 Period Temp Pulse Resp BP Sys/[place] Pulse Ox Last 24 Hr 97 F-97.9 F 75-86 18-20 100-142/40-67 92-100 Intake and Output 08/09/20 08/10/20 08/10/20 21:59 05:59 13:59 Intake Total 290 410 245 Output Total 600 391 Balance 290 -190 -146 Weight 75.115 kg Intake & Output: Intake & Output 08/09/20 08/10/20 08/10/20 21:59 05:59 13:59 Intake Total 290 410 245 Output Total 600 391 Balance 290 -190 -146 Weight 75.115 kg Intake: IV 50 50 115 Zosyn 2.25 gm In Dextrose 5% in 50 50 50 Water 50 ml @ 100 mls/hr IV Q8H [facility] Rx#:[id number] Oral 240 360 130 Output: Void Amount 600 165 # of times incontinent of urine 1 Urine/Stool Mix 225 Other: Meal Dinner Cheese stick x1, & 1pk grahm crackers Breakfast Percent of Meal Consumed 100% 100% 25% Feeding Ability Independent Independent Independent Urine Appearance Clear Clear Urine Color Bright Yellow Pale Urine Odor Normal Stool Size Large Small Small Stool Color Brown Brown Stool Consistency Loose Loose # Voids 1 # of times incontinent of 1 Bowels Exam: General: Alert, Awake, No acute Distress Eyes/N/T: EOMI, Head/Neck: neck supple, CV: RRR, No murmurs, Pulm: Clear b/l, no wheezing/rhonchi/rales Abd: soft, nontender, +BS x4 Ext: no clubbing/cyanosis. RLE erythema/edema Neuro: Alert, no focal deficits, moves all extremities, Skin: warm/dry OBJ DATA Labs CBC & Chem 7: 08/10/20 06:09 08/10/20 06:09 Labs: Abnormal Lab Results 08/10/20 08/10/20 08/09/20 06:09 06:09 11:01 WBC RBC 3.78 L Hgb 11.4 L Hct 34.8 L POC Hct MPV 11.1 H Neut % (Auto) 79.0 H Lymph % (Auto) 8.8 L Lymph # (Auto) 0.91 L [place] # (Auto) 0.99 H Absolute Neutrophils 8.17 H ESR 43 H Carbon Dioxide 18 L Anion Gap 24.0 H POC BUN BUN 114 H* Creatinine 5.3 H* POC Creatinine Glucose 139 H POC Glucose Uric Acid 12.2 H Calcium 11.1 H Phosphorus 7.6 H* Magnesium 1.4 L Ferritin 753.8 H C-Reactive Protein 2.30 H Globulin 3.9 H Albumin/Globulin Ratio 0.9 L Triglycerides 253 H Procalcitonin 0.25 H 08/09/20 08/09/20 11:01 11:01 WBC 12.1 H RBC 3.69 L Hgb 11.0 L Hct 34.3 L POC Hct 34 L MPV 10.9 H Neut % (Auto) 79.3 H Lymph % (Auto) 8.8 L Lymph # (Auto) 1.06 L [place] # (Auto) 1.20 H Absolute Neutrophils 9.61 H ESR Carbon Dioxide Anion Gap POC BUN 135 H* BUN Creatinine POC Creatinine 6.7 H* Glucose POC Glucose 68 L Uric Acid Calcium Phosphorus Magnesium Ferritin C-Reactive Protein Globulin Albumin/Globulin Ratio Triglycerides Procalcitonin Meds: Medications Acetaminophen (Tylenol) 650 mg PO Q4-6HP PRN; Protocol PRN Reason: Per Pain Protocol/Fever > 101 Last Admin: 08/09/20 23:19 Dose: 650 mg Documented by: Bisacodyl (Dulcolax) 10 mg [place] Q2-3DAYS PRN PRN Reason: Constipation Cyanocobalamin (Vitamin B-12) 1,000 mcg PO BID [facility] Stop: 08/14/20 09:01 Last Admin: 08/10/20 09:06 Dose: 1,000 mcg Documented by: Dextrose (Dextrose 50%) 0 ml IV UD PRN PRN Reason: Hypoglycemia Diagnostic Test (Pha) (Accu-Chek) 1 each FS ACHS [facility] Last Admin: 08/10/20 11:42 Dose: 1 each Documented by: Docusate Sodium (Colace) 100 mg PO BID [facility] Last Admin: 08/10/20 07:39 Dose: Not Given Documented by: Glucose (Insta-Glucose) 15 gm PO PRN PRN PRN Reason: Hypoglycemia Heparin Sodium (Porcine) (Heparin) 5,000 unit SQ Q12 [facility] Last Admin: 08/10/20 09:07 Dose: 5,000 unit Documented by: Hydralazine HCl (Apresoline) 10 mg IV Q4-6HP PRN PRN Reason: Hypertension Acetaminophen (Ofirmev) 650 mg in 65 mls @ 130 mls/hr IV Q6HP PRN; Protocol PRN Reason: Per Pain Protocol/Fever > 101 Last Infusion: 08/10/20 06:21 Dose: Infused Documented by: Magnesium Sulfate (Magnesium Sulfate) 2 gm in 50 mls @ 50 mls/hr IV UD PRN PRN Reason: MG = or < 1.7 Sodium Chloride (Sodium Chloride 0.9%) 1,000 mls @ 50 mls/hr IV .Q20H [facility] Stop: 08/12/20 03:29 Last Admin: 08/09/20 16:36 Dose: 50 mls/hr Documented by: Piperacillin Sod/Tazobactam (Sod 2.25 gm/ Dextrose) 50 mls @ 100 mls/hr IV Q8H [facility] Last Infusion: 08/10/20 06:50 Dose: Infused Documented by: Insulin Human Lispro (Humalog) 0 unit SQ ACHS [facility]; Protocol Last Admin: 08/10/20 11:44 Dose: Not Given Documented by: Iron Carb/Multivit/[place]/Folic Acid (Multivitamin W/Minerals) 1 tab PO DAILY [facility] Last Admin: 08/10/20 09:06 Dose: 1 tab Documented by: Melatonin (Melatonin 3mg Tablet) 3 mg PO HSP PRN PRN Reason: Insomnia Last Admin: 08/10/20 02:52 Dose: 3 mg Documented by: Methocarbamol (Robaxin) 500 mg PO BIDP PRN PRN Reason: Muscle Spasm Last Admin: 08/10/20 10:56 Dose: 500 mg Documented by: Metoprolol Tartrate (Lopressor) 5 mg IV Q5M PRN PRN Reason: Heart Rate > 140 bpm Ondansetron HCl (Zofran Odt) 4 mg SL Q4-6HP PRN; Protocol PRN Reason: Nausea And Vomiting Ondansetron HCl (Zofran) 4 mg IV Q4-6HP PRN; Protocol PRN Reason: Nausea And Vomiting Polyethylene Glycol (Miralax) 17 gm PO DAILYP PRN PRN Reason: Constipation Senna/Docusate Sodium (Senna Plus Tablet) 1 tab PO HS [facility] Last Admin: 08/09/20 21:09 Dose: Not Given Documented by: Sodium Chloride (Saline Flush) 10 ml IV Q8 [facility] Last Admin: 08/10/20 05:22 Dose: Not Given Documented by: Vancomycin HCl (Vancomycin Per Pharmacy) 1 order IV UD [facility]; Protocol A/P Narrative A/P Narrative: A: *RLE cellulitis: failed outpatient treatment -clinically. No fluctuance or evidence of deep-seated infection. Doppler ultrasound negative for DVT -Leukocytosis resolved. *HTN:home dose Coreg *DM type II: -with episode of hypoglycemia. Hold insulin. *COPD: stable on bronchodilators *GERD: continue PPI *CKD stage IV: Managed by Dr. Yee. Creatinine at 6.7. Avoid nephrotoxins Plan: -Continue vanc/zosyn -de-escalate -Nephrology consult -hold basal insulin, cont SSI for now -PT OT nutrition support -ppx: heparin/home ppi Full code Time Spent With Patient Time: Total time spent is greater than 50% in coordination of care (as documented) at patient's floor/unit and/or counseling patient: QUALITY Stroke Symptom Onset Unknown: No VTE Deep Vein Thrombosis/Pulmonary Embolism Present on Admission: No
[2020-08-10] MEDS: ACETAMINOPHEN 325 MG TABLET PO PRN (14:30)
[2020-08-10] MEDS: 0.9 % SODIUM CHLORIDE 1,000 ML IV SCH ×2 (14:31→19:38)
[2020-08-10] MEDS ORDERED: HYDROcodone/APAP 5/325MG TABLET PO ONE (21:59)
[2020-08-10] MEDS: SENNOSIDES/DOCUSATE SODIUM 1 TAB TABLET PO SCH (21:59)
[2020-08-11] MEDS: 0.9 % SODIUM CHLORIDE 10 ML SYRINGE IV SCH ×3 (05:57→21:14)
[2020-08-11] MEDS: PIPERACILLIN SODIUM/TAZOBACTAM 2.25 GM in DEXTROSE 5% IN WATER 50 ML IV SCH (06:00)
[2020-08-11 06:32] LABS: ALT/SGPT 9 U/L (<40); AST/SGOT 12 U/L (<32); Albumin 3.2 gm/dL (3.2-5.2); Albumin/Globulin Ratio 0.9 (1.0-2.3); Alkaline Phosphatase 65 U/L (39-117); Bilirubin,Direct < 0.2 mg/dL (<0.3); Bilirubin,Total 0.3 mg/dL (0.1-1.0); Blood Urea Nitrogen 105 mg/dL (8-23); Carbon Dioxide 21 mmol/L (22-30); Chloride 100 mmol/L (96-108); Globulin 3.4 gm/dL (2.2-3.7); Glomerular Filtration Rate 7; Glucose 99 mg/dL (70-105); Lactate Dehydrogenase 135 U/L (135-225); Phosphorous 7.4 mg/dL (2.5-4.5); Triglycerides 177 mg/dL (<150)
[2020-08-11] MEDS: HYDROcodone/APAP 5/325MG TABLET PO PRN ×3 (06:59→23:56)
[2020-08-11] MEDS: 0.9 % SODIUM CHLORIDE 1,000 ML IV SCH ×2 (07:00→18:54)
[2020-08-11] MEDS: INSULIN LISPRO 1 UNIT/0.01 ML UNIT SQ SCH ×4 (07:11→21:13)
--- NOTE | 2020-08-11 07:35 | Internal Med Progress Note ---
SUBJECTIVE Subjective Patient information: Note initiated : 08/11/20 at 7:32 am Service Date, if different from initiated Date: [] Patient: Kellee Heller a 74 y/o F admitted on 08/09/20 for cellulitis. Chief Complaint: [] Interval history: History of present illness: Ms. Heller is a 74 year old F with a history of end- stage renal disease managed by small arms artillery repairer Dr. Yee. Over the last couple of weeks patient noted increasing redness/pain and swelling around the right ankle extending up to the lower one third of leg. Symptoms gradually progressed with intensifying pain and redness and swelling. A week later she noted left lower extremity pain and swelling. She was evaluated in the [facility] on 07/24 and was diagnosed with cellulitis right lower extremity and was started on doxycycline/Keflex. However despite treatment patient symptoms fail to resolve. She was referred by her small arms artillery repairer to the ER today due to worsening symptoms increasing pain and difficulty ambulation. Initial work-up in the ER was consistent with right lower externally cellulitis. Negative Doppler ultrasound for DVT. Patient was started on Rocephin/vanc omycin. Subsequently hospital service was consulted after case was discussed with small arms artillery repairer who recommended admission At the time of my evaluation patient is alert and oriented. She denies active distress. She denies trauma/open wound or draining sores. She has not had similar symptoms or recurrent skin infection in the past. She denies diarrhea, dysuria, bloody stool, fever, chills. She further denies chest pain, shortness of breath headache lightheadedness or dizziness. 08/10-Patient doing well. On antibiotic coverage. White count downtrending. No overnight fever chills nausea vomiting, nursing staff expressed concerns about episode of hypoglycemia with blood sugar 48. Insulin held. Likely secondary to sustained insulin effect in light of renal failure. Right lower extremity swelling and redness improving. Ambulating, complains of minimal back pain Patient complains of intermittent spasmodic back pain. Was unable to sleep last night. Start Robaxin 500 twice daily as needed. 08/11 Slept okay. Overall feeling a little better. No new complaints. Leukocytosis resolved. He does have some diarrhea. Has a history of COPD and is on oxygen 2 L at night and sometimes during the day. Has a chronic cough. Review of Systems: denies headache/fever/chills/nausea/vomiting/chest or abdominal pain/diarrhea. Otherwise see above. Constitutional Vitals: Vital Signs Temp Pulse Resp BP Pulse Ox 98.0 F 88 18 128/61 93 08/11/20 07:01 08/11/20 07:01 08/11/20 07:01 08/11/20 07:01 08/11/20 07:01 Period Temp Pulse Resp BP Sys/[place] Pulse Ox Last 24 Hr 97.3 F-98.0 F 83-98 14-20 128-144/61-66 93-99 Intake and Output 08/10/20 08/11/20 08/11/20 21:59 05:59 13:59 Intake Total 1390 200 Output Total 225 431 101 Balance 1165 -231 -101 Weight 76.26 kg Intake & Output: Intake & Output 08/10/20 08/11/20 08/11/20 21:59 05:59 13:59 Intake Total 1390 200 Output Total 225 431 101 Balance 1165 -231 -101 Weight 76.26 kg Intake: IV 1100 50 Sodium Chloride 0.9% 1,000 ml @ 1000 50 mls/hr IV .Q20H [facility] Rx#: [id number] Zosyn 2.25 gm In Dextrose 5% in 50 50 Water 50 ml @ 100 mls/hr IV Q8H [facility] Rx#:[id number] Oral 290 150 Output: Void Amount 225 430 100 # of times incontinent of urine 1 1 Other: Meal Dinner Percent of Meal Consumed 50% Feeding Ability Independent Urine Appearance Clear Clear Clear Urine Color Pale Bright Yellow Pale Urine Odor Normal Normal Normal Stool Size Small Small Stool Color Brown Brown Stool Consistency Loose Loose # Voids 1 # Bowel Movements 1 # of times incontinent of 1 Bowels Exam: General: Alert, Awake, No acute Distress Eyes/N/T: EOMI, Head/Neck: neck supple, CV: RRR, No murmurs, Pulm: mild rales b/l, no wheezing Abd: soft, nontender, +BS x4 Ext: no clubbing/cyanosis. RLE erythema/edema. b/l LE 2+ edema Neuro: Alert, no focal deficits, moves all extremities, Skin: warm/dry OBJ DATA Labs CBC & Chem 7: 08/10/20 06:09 08/11/20 05:00 Labs: Abnormal Lab Results 08/11/20 08/10/20 08/10/20 05:00 06:09 06:09 WBC RBC 3.78 L Hgb 11.4 L Hct 34.8 L POC Hct MPV 11.1 H Neut % (Auto) 79.0 H Lymph % (Auto) 8.8 L Lymph # (Auto) 0.91 L [place] # (Auto) 0.99 H Absolute Neutrophils 8.17 H ESR 43 H Carbon Dioxide 21 L 18 L Anion Gap 18.0 H 24.0 H POC BUN BUN 105 H* 114 H* Creatinine 5.3 H* 5.3 H* POC Creatinine Glucose 139 H POC Glucose Uric Acid 11.0 H 12.2 H Calcium 11.0 H 11.1 H Phosphorus 7.4 H* 7.6 H* Magnesium 1.4 L Ferritin 753.8 H C-Reactive Protein 2.30 H Globulin 3.9 H Albumin/Globulin Ratio 0.9 L 0.9 L Triglycerides 177 H 253 H Procalcitonin 08/09/20 08/09/20 08/09/20 11:01 11:01 11:01 WBC 12.1 H RBC 3.69 L Hgb 11.0 L Hct 34.3 L POC Hct 34 L MPV 10.9 H Neut % (Auto) 79.3 H Lymph % (Auto) 8.8 L Lymph # (Auto) 1.06 L [place] # (Auto) 1.20 H Absolute Neutrophils 9.61 H ESR Carbon Dioxide Anion Gap POC BUN 135 H* BUN Creatinine POC Creatinine 6.7 H* Glucose POC Glucose 68 L Uric Acid Calcium Phosphorus Magnesium Ferritin C-Reactive Protein Globulin Albumin/Globulin Ratio Triglycerides Procalcitonin 0.25 H Meds: Medications Acetaminophen (Tylenol) 650 mg PO Q4-6HP PRN; Protocol PRN Reason: Per Pain Protocol/Fever > 101 Last Admin: 08/10/20 14:30 Dose: 650 mg Documented by: Hydrocodone Bitart/Acetaminophen ([place] 5/325mg) 1 tab PO Q6HP PRN; Protocol PRN Reason: Per Pain Protocol Last Admin: 08/11/20 06:59 Dose: 1 tab Documented by: Bisacodyl (Dulcolax) 10 mg [place] Q2-3DAYS PRN PRN Reason: Constipation Cyanocobalamin (Vitamin B-12) 1,000 mcg PO BID [facility] Stop: 08/14/20 09:01 Last Admin: 08/10/20 21:58 Dose: 1,000 mcg Documented by: Dextrose (Dextrose 50%) 0 ml IV UD PRN PRN Reason: Hypoglycemia Diagnostic Test (Pha) (Accu-Chek) 1 each FS ACHS [facility] Last Admin: 08/11/20 07:09 Dose: 1 each Documented by: Docusate Sodium (Colace) 100 mg PO BID [facility] Last Admin: 08/10/20 21:59 Dose: Not Given Documented by: Glucose (Insta-Glucose) 15 gm PO PRN PRN PRN Reason: Hypoglycemia Heparin Sodium (Porcine) (Heparin) 5,000 unit SQ Q12 [facility] Last Admin: 08/10/20 22:00 Dose: 5,000 unit Documented by: Hydralazine HCl (Apresoline) 10 mg IV Q4-6HP PRN PRN Reason: Hypertension Acetaminophen (Ofirmev) 650 mg in 65 mls @ 130 mls/hr IV Q6HP PRN; Protocol PRN Reason: Per Pain Protocol/Fever > 101 Last Infusion: 08/10/20 06:21 Dose: Infused Documented by: Magnesium Sulfate (Magnesium Sulfate) 2 gm in 50 mls @ 50 mls/hr IV UD PRN PRN Reason: MG = or < 1.7 Last Infusion: 08/10/20 18:25 Dose: Infused Documented by: Sodium Chloride (Sodium Chloride 0.9%) 1,000 mls @ 50 mls/hr IV .Q20H [facility] Stop: 08/12/20 03:29 Last Admin: 08/11/20 07:00 Dose: Not Given Documented by: Piperacillin Sod/Tazobactam (Sod 2.25 gm/ Dextrose) 50 mls @ 100 mls/hr IV Q8H [facility] Last Admin: 08/11/20 06:00 Dose: 100 mls/hr Documented by: Insulin Human Lispro (Humalog) 0 unit SQ [facility]; Protocol Last Admin: 08/11/20 07:11 Dose: Not Given Documented by: Iron Carb/Multivit/[place]/Folic Acid (Multivitamin W/Minerals) 1 tab PO DAILY [facility] Last Admin: 08/10/20 09:06 Dose: 1 tab Documented by: Loperamide HCl (Imodium) 2 mg PO PRN PRN PRN Reason: Diarrhea Melatonin (Melatonin 3mg Tablet) 3 mg PO HSP PRN PRN Reason: Insomnia Last Admin: 08/10/20 02:52 Dose: 3 mg Documented by: Methocarbamol (Robaxin) 500 mg PO BIDP PRN PRN Reason: Muscle Spasm Last Admin: 08/10/20 10:56 Dose: 500 mg Documented by: Metoprolol Tartrate (Lopressor) 5 mg IV Q5M PRN PRN Reason: Heart Rate > 140 bpm Ondansetron HCl (Zofran Odt) 4 mg SL Q4-6HP PRN; Protocol PRN Reason: Nausea And Vomiting Ondansetron HCl (Zofran) 4 mg IV Q4-6HP PRN; Protocol PRN Reason: Nausea And Vomiting Polyethylene Glycol (Miralax) 17 gm PO DAILYP PRN PRN Reason: Constipation Senna/Docusate Sodium (Senna Plus Tablet) 1 tab PO HS [facility] Last Admin: 08/10/20 21:59 Dose: Not Given Documented by: Sodium Chloride (Saline Flush) 10 ml IV Q8 [facility] Last Admin: 08/11/20 05:57 Dose: Not Given Documented by: Vancomycin HCl (Vancomycin Per Pharmacy) 1 order IV UD [facility]; Protocol A/P Narrative A/P Narrative: A: *RLE cellulitis: failed outpatient treatment -clinically improved. No fluctuance or evidence of deep-seated infection. Doppler ultrasound negative for DVT -Leukocytosis resolved *HTN: home dose Coreg *DM type II: -with episode of hypoglycemia. Hold insulin. *COPD(on 2L@night and sometimes during the day at home): stable on bronchodilators *GERD: continue PPI *CKD stage IV: Managed by Dr. Yee. Creatinine at 6.7. Avoid nephrotoxins *Peripheral Edema: Plan: -Continue vanc/zosyn to rocephin -Nephrology consult -cont home diuretics -hold basal insulin, cont SSI for now -PT OT nutrition support -ppx: heparin/home ppi Full code Time Spent With Patient Time: Total time spent is greater than 50% in coordination of care (as documented) at patient's floor/unit and/or counseling patient: QUALITY Stroke Symptom Onset Unknown: No VTE Deep Vein Thrombosis/Pulmonary Embolism Present on Admission: No
--- NOTE | 2020-08-11 09:49 | XRay Report ---
HISTORY: Cellulitis or prior pulmonary infiltrates FINDINGS: Medially in the right upper lobe there is a 3.5 cm mass. At the right costophrenic sulcus there is a 3.3 cm mass. Right hilum is enlarged. There are probably enlarged lymph nodes. There may be a small nodule in the left apex. These are new finding since the prior chest x-ray done on 09/13/19. Patient has underlying pulmonary fibrosis with prominence of the interstitial lung markings bilaterally, most apparent laterally in the left lower thorax. There is pleural scar at the left costophrenic sulcus. The heart size is normal. Impression: nodules in the right upper lobe and right lower lobe, with an enlarged right hilum. This may be a malignancy. Chest CT with intravenous contrast is recommended for further workup. Interpreted and Authenticated by: Jose Luis Ballesteros 08/11/20
[2020-08-11] MEDS ORDERED: FUROSEMIDE 100 MG/10 ML VIAL IV ONE (10:00)
[2020-08-11] MEDS ORDERED: ALBUMIN HUMAN 12.5 GM/50 ML BAG IV ONE (10:00)
[2020-08-11] MEDS: DOCUSATE SODIUM 100 MG CAPSULE PO SCH ×2 (10:04→21:13)
[2020-08-11] MEDS: CYANOCOBALAMIN (VITAMIN B-12) 500 MCG TABLET PO SCH ×2 (10:10→21:32)
[2020-08-11] MEDS: MULTIVIT,THER IRON,CA,FA & MIN 1 TABLET PO SCH (10:10)
--- NOTE | 2020-08-11 10:19 | Discharge Summary ---
Discharge Provider Provider Patient information: Note initiated : 08/11/20 at 10:17 am Service Date, if different from initiated Date: [] Patient: Kellee Heller a 74 y/o F admitted on 08/09/20 for cellulitis. Chief Complaint: [] Date of admission: 08/09/20 15:16 Primary care physician: Debra Mcclure DO Consults: 08/09/20 12:39 Consult to Physician [CONS] Stat Comment: Consulting Provider: Jh Nava Reason For Exam: Physician to Consult Discharge Meds Discharge Medications Home Medications vitamin B complex 1 tab-cap PO QDAY 03/26/17 [History Confirmed 08/09/20 Last Taken Unknown] simvastatin 40 mg tablet 40 mg PO QPM tab 08/11/17 [History Confirmed 08/09/20 Last Taken 08/09/20] umeclidinium 62.5 mcg/actuation blister powder for inhalation 1 inh INHALATION Q24H 12/07/17 [History Confirmed 08/09/20 Last Taken 08/09/20] omeprazole 20 mg tablet,delayed release 20 mg PO DAILY tab 07/04/18 [History Confirmed 08/09/20 Last Taken 08/09/20] pen needle, diabetic 09/11/19 [History Confirmed 08/09/20 Last Taken Unknown] fluticasone furoate-vilanterol 1 each IH DAILY 10/12/19 [History Confirmed 08/09/20 Last Taken 08/09/20] torsemide 20 mg tablet 20 mg PO QDAY #90 tab 05/07/20 [Rx Confirmed 08/09/20 Last Taken 08/09/20] blood sugar diagnostic #300 each 05/29/20 [Rx Confirmed 08/09/20 Last Taken Unknown] amoxicillin 500 mg PO BID #4 cap 08/11/20 [Rx Last Taken Unknown] doxycycline hyclate 100 mg PO BID #8 cap 08/11/20 [Rx Last Taken Unknown] carvedilol 6.25 mg PO BID #1 tab 08/14/20 [Rx Last Taken Unknown] COURSE Hospital Course Hospital course: History of present illness: Ms. Heller is a 74 year old F with a history of end- stage renal disease managed by lead assistant manager Dr. Yee. Over the last couple of weeks patient noted increasing redness/pain and swelling around the right ankle extending up to the lower one third of leg. Symptoms gradually progressed with intensifying pain and redness and swelling. A week later she noted left lower extremity pain and swelling. She was evaluated in the minor care on 07/24 and was diagnosed with cellulitis right lower extremity and was started on doxycycline/Keflex. However despite treatment patient symptoms fail to resolve. She was referred by her lead assistant manager to the ER today due to worsening symptoms increasing pain and difficulty ambulation. Initial work-up in the ER was consistent with right lower externally cellulitis. Negative Doppler ultrasound for DVT. Patient was started on Rocephin/vancomycin. Subsequently hospital service was consulted after case was discussed with lead assistant manager who recommended admission At the time of my evaluation patient is alert and oriented. She denies active distress. She denies trauma/open wound or draining sores. She has not had similar symptoms or recurrent skin infection in the past. She denies diarrhea, dysuria, bloody stool, fever, chills. She further denies chest pain, shortness of breath headache lightheadedness or dizziness. 08/10-Patient doing well. On antibiotic coverage. White count downtrending. No overnight fever chills nausea vomiting, nursing staff expressed concerns about episode of hypoglycemia with blood sugar 48. Insulin held. Likely secondary to sustained insulin effect in light of renal failure. Right lower extremity swelling and redness improving. Ambulating, complains of minimal back pain Patient complains of intermittent spasmodic back pain. Was unable to sleep last night. Start Robaxin 500 twice daily as needed. 08/11 Slept okay. Overall feeling a little better. No new complaints. Leukocytosis resolved. He does have some diarrhea. Has a history of COPD and is on oxygen 2 L at night and sometimes during the day. Has a chronic cough. 08/12 Slept okay. Complains of stomachache generalized and bloating, feels it might be from the oral contrast study yesterday. And some occasional nausea. No other complaints. Possible lung mass biopsy today. The abdomen pelvis yesterday unremarkable. CT chest in the morning showed multiple pulmonary nodules and several masses with largest 3.3 x 3.3 cm. 08/13 Patient states she slept a little bit better last night. Still has a bit of a stomachache from the contrast study. Some occasional nausea. Diarrhea is slowing down since the contrast study. To [facility] considering starting dialysis he inpatient. 08/14 Attempted hemodialysis yesterday but seem to be infiltration when using the fistula. Patient slept all right. She has some nausea this morning. Diarrhea improved. She does feel some abdominal bloating. Her lead assistant manager unable to use fistula. Will need temporary cath which Dr. Yee will set up with Dr. Cano for tomorrow and then outpatient dialysis A: *RLE cellulitis: failed outpatient treatment -clinically improved. No fluctuance or evidence of deep-seated infection. Doppler ultrasound negative for DVT -Leukocytosis resolved *HTN: home dose Coreg *h/o DM type II: A1c 5.5 -with episodes of hypoglycemia. Hold DM regimen *COPD(on 2L@night and sometimes during the day at home): stable on bronchodilators *GERD: continue PPI *CKD stage V: Managed by Dr. Yee. Creatinine at 6.7. Avoid nephrotoxins *Peripheral Edema: *Pulmonary nodules/masses: ?metastatic RCC vs lung -CT abd/pelv unremarkable Discharge diagnosis: Cellulitis Secondary discharge diagnosis: Chronic kidney disease stage IV hypertension diabetes COPD GERD peripheral edema, pulmonary masses Time Spent with Patient Time attestation: Total time spent providing and/or coordinating discharge services: Time spent: Greater than 30 minutes EXAM Constitutional Vitals: Temp Pulse Resp BP Pulse Ox 98.0 F 88 18 128/61 93 08/11/20 07:01 08/11/20 07:01 08/11/20 07:01 08/11/20 07:01 08/11/20 07:05 Discharge Data Data Completed and Pending Labs on day of discharge: Labs from last 24 hours 08/11/20 08/11/20 08/10/20 05:00 05:00 22:34 Sodium 139 Potassium 4.2 Chloride 100 Carbon Dioxide 21 L Anion Gap 18.0 H BUN 105 H* Creatinine 5.3 H* GFR Calculation 7 Glucose 99 Uric Acid 11.0 H Calcium 11.0 H Phosphorus 7.4 H* Magnesium 2.2 Total Bilirubin 0.3 Direct Bilirubin < 0.2 GGT 26 AST 12 ALT 9 Alkaline Phosphatase 65 Lactate Dehydrogenase 135 Total Protein 6.6 Albumin 3.2 Globulin 3.4 Albumin/Globulin Ratio 0.9 L Triglycerides 177 H Random Vancomycin 13.0 Vancomycin Dose Pending Vanco Last Dose Time Pending SARS-CoV-2 (PCR) Negative Preliminary micro results at discharge 08/09/20 13:30 Blood Culture - Preliminary Blood 08/09/20 13:20 Blood Culture - Preliminary Blood Discharge Plan Patient/Caregiver Discharge Instructions Activity: increase activity as tolerated Diet: Renal/Consistent Carbs Activity Restrictions/Additional Instructions: Follow-up with PCP and Dr. Yee regarding lung mass biopsy. monitor blood glucose twice daily and bring log to PCP. diabetic meds stopped for low glucose and A1c. Prescriptions: New amoxicillin 500 mg capsule 500 mg PO BID Qty: 4 RF: 0 doxycycline hyclate 100 mg capsule 100 mg PO BID Qty: 8 RF: 0 Continued (DME) Contour Next Test Strips Strip See Rx Instructions .ROUTE .MEDSUPPLY Qty: 300 RF: 0 torsemide 20 mg tablet 20 mg PO QDAY Qty: 90 RF: 0 simvastatin 40 mg tablet 40 mg PO QPM RF: 0 umeclidinium [Incruse Ellipta] 62.5 mcg/actuation blister with device 1 inh INHALATION Q24H RF: 0 omeprazole 20 mg tablet,delayed release (DR/EC) 20 mg PO DAILY RF: 0 vitamin B complex [B Complex-Vitamin B12] tablet 1 tab-cap PO QDAY RF: 0 (DME) pen needle, diabetic 1 EACH needle See Dose Instructions dose .Route .MEDSUPPLY RF: 0 fluticasone furoate-vilanterol 1 EACH blister with device 1 each IH DAILY RF: 0 Changed carvedilol 6.25 mg tablet 6.25 mg PO BID Qty: 1 RF: 0 Discontinued Toujeo SoloStar U-300 Insulin 300 unit/mL (1.5 mL) insulin pen 10 unit SUB-Q QHS Qty: 4.5 RF: 0 insulin lispro [Humalog KwikPen Insulin] 100 unit/mL insulin pen 5 unit SUB-Q QHS Qty: 15 RF: 1 cephalexin 250 mg capsule 250 mg PO BID Qty: 10 RF: 0 glipizide 10 mg tablet 10 mg PO QDAY Qty: 90 RF: 0 Follow Up Plan Follow up with: César Yee MD [Physician] - Debra Mcclure DO [Primary Care Provider] - Manuel Cano MD [Physician] - Patient Disposition: Home, Self-Care Prognosis: Undetermined QUALITY VTE Deep Vein Thrombosis/Pulmonary Embolism Present on Admission: No
[2020-08-11] MEDS ORDERED: hydrOXYzine 25 MG TABLET PO ONE ×2 (10:44→11:05)
[2020-08-11] MEDS: HEPARIN 5,000 UNIT/ML VIAL SQ SCH ×2 (10:53→21:31)
[2020-08-11] MEDS: cefTRIAXone 2 GM in DEXTROSE 5% IN WATER 50 ML IV SCH (11:58)
--- NOTE | 2020-08-11 16:16 | Cat Scan Report ---
History: Hypoxia and pulmonary nodules seen on preceding chest x-ray TECHNIQUE: The chest was imaged without contrast at 2.5 mm intervals from thoracic inlet through the diaphragm. Sagittal, coronal and axial MIPS images were created. Radiation exposure was limited using dose reduction technology. FINDINGS: There are multiple pulmonary nodules scattered throughout both lungs. The largest is located posteriorly and is medially in the right upper lobe. It measures 3.3 x 3.3 cm. Second largest is in the lateral basal segment of the right lower lobe and measures 2.9 x 3.4 cm. The largest mass in the left lung is located behind the hilum medially in the superior segment of the left lower lobe and it measures 2.2 x 2.4 cm. There are many other smaller nodules scattered bilaterally. None of them are calcified and none of them have central necrosis. These were not present on the prior chest CT done on 12/09/17. Patient has underlying pleural and parenchymal scar tissue. There is mild emphysema and honeycombing in the right apex. The scar mild emphysema are present in 2018 and have remained relatively stable. No pleural effusion is developed. There are couple indeterminate lymph nodes in the pretracheal retrocaval space of the mediastinum which measure up to 1.1 cm. Evaluation of the claudia are limited without intravenous contrast. The central pulmonary arteries are relatively plump and could obscure an adjacent hilar lymph node. There is a moderate size retrocardiac hiatus hernia. The heart is normal in size and contour. There are several scattered calcified plaques in the coronary arteries and along the wall normal caliber thoracic aorta. Bone window show no lytic or blastic metastasis. The thyroid is homogeneous. Evaluation of the liver and spleen without contrast is limited. There is a large calcified granuloma in the spleen and solitary calcified granuloma in the liver. The gallbladder is been removed. The extrahepatic ducts are dilated and measure up to 1.8 cm. There may be thickening of the wall of the stomach and duodenum. IMPRESSION: Multiple pulmonary metastasis of undetermined origin Mild emphysema and pulmonary fibrosis Mildly thickened wall of the stomach and small intestine. Abdomen and pelvic CT with oral and intravenous contrast is recommended to further evaluate the stomach and small bowel as well as to look for other sources for the primary tumor. Interpreted and Authenticated by: Jose Luis Ballesteros 08/11/20
[2020-08-11] MEDS ORDERED: DEXTROSE 50% 50 ML VIAL IV ONE (17:41)
--- NOTE | 2020-08-11 20:26 | Cat Scan Report ---
History: Prior left-sided nephrectomy for renal cell carcinoma. Patient now presents with multiple pulmonary nodules TECHNIQUE: The abdomen was imaged following oral contrast scanning from the diaphragm through the symphysis pubis. IV contrast could not be administered due to very poor renal function. Sagittal and coronal reformats are created. The radiation exposure was limited using dose reduction technology. FINDINGS: There are several pulmonary metastasis in both lung bases which are described on the preceding chest CT. There is chronic pleural thickening left costophrenic sulcus. A moderate size hiatus hernia is present. Evaluation the abdominal organs without contrast is somewhat limited. There is a calcified granuloma in the spleen. The spleen is normal size and homogeneous. The liver is normal in size and homogeneous, without evidence of metastasis. The gallbladder is been removed. The extrahepatic bile ducts are dilated and measure up to 1.5 cm. There is no evidence of a stone or mass in the ampulla. However, patient does have a large duodenal diverticulum along the medial side of the duodenum near the level of the ampulla. The pancreas appears normal without evidence of a mass, inflammation or dilatation of the duct. The adrenals are normal. A 2 cm cyst is present at the lower pole of the right kidney. This is unchanged from the prior MRI done on 11/18/16. There is an exophytic 1 x 1.1 cm nodule posteriorly in the upper pole of the right kidney. This is new since 2017 but has water density indicating it is a cyst. No solid mass is identified in this nonenhanced right kidney. There is no evidence of residual or recurrent mass in the left renal fossa following the nephrectomy. No adenopathy is present in the abdomen or pelvis. No ascites is present. Aorta is normal in caliber. There is a moderate amount calcified plaque in the aorta and iliac arteries. There are numerous diverticula in the distal sigmoid colon but without evidence of diverticulitis. Oral contrast is passed through stomach and normal small intestine to the proximal colon without obstruction. The appendix is noninflamed. Uterus and ovaries are atrophic. Urinary bladder is decompressed. There is a right metal hip prosthesis. Bone windows show no lytic or blastic metastasis. IMPRESSION: Normal postoperative changes following left nephrectomy. There is no evidence of tumor beneath the diaphragm. Interpreted and Authenticated by: Jose Luis Ballesteros 08/11/20
[2020-08-11] MEDS: LOPERAMIDE 2 MG CAPSULE PO PRN ×3 (21:10→22:49)
[2020-08-11] MEDS: SENNOSIDES/DOCUSATE SODIUM 1 TAB TABLET PO SCH (21:13)
[2020-08-11] MEDS: MELATONIN 3 MG TABLET PO SCH (21:32)
[2020-08-11] MEDS: METHOCARBAMOL 500 MG TABLET PO PRN (22:49)
[2020-08-12] MEDS: 0.9 % SODIUM CHLORIDE 10 ML SYRINGE IV SCH ×3 (04:14→20:41)
[2020-08-12] MEDS: ONDANSETRON 4 MG/2 ML VIAL IV PRN (06:06)
--- NOTE | 2020-08-12 07:10 | Internal Med Progress Note ---
SUBJECTIVE Subjective Patient information: Note initiated : 08/12/20 at 7:07 am Service Date, if different from initiated Date: [] Patient: Kellee Heller a 74 y/o F admitted on 08/09/20 for cellulitis. Chief Complaint: [] Interval history: History of present illness: Ms. Heller is a 74 year old F with a history of end- stage renal disease managed by lead recreation assistant Dr. Yee. Over the last couple of weeks patient noted increasing redness/pain and swelling around the right ankle extending up to the lower one third of leg. Symptoms gradually progressed with intensifying pain and redness and swelling. A week later she noted left lower extremity pain and swelling. She was evaluated in the [facility] care on 07/24 and was diagnosed with cellulitis right lower extremity and was started on doxycycline/Keflex. However despite treatment patient symptoms fail to resolve. She was referred by her lead recreation assistant to the ER today due to worsening symptoms increasing pain and difficulty ambulation. Initial work-up in the ER was consistent with right lower externally cellulitis. Negative Doppler ultrasound for DVT. Patient was started on Rocephin/vanc omycin. Subsequently hospital service was consulted after case was discussed with lead recreation assistant who recommended admission At the time of my evaluation patient is alert and oriented. She denies active distress. She denies trauma/open wound or draining sores. She has not had similar symptoms or recurrent skin infection in the past. She denies diarrhea, dysuria, bloody stool, fever, chills. She further denies chest pain, shortness of breath headache lightheadedness or dizziness. 08/10-Patient doing well. On antibiotic coverage. White count downtrending. No overnight fever chills nausea vomiting, nursing staff expressed concerns about episode of hypoglycemia with blood sugar 48. Insulin held. Likely secondary to sustained insulin effect in light of renal failure. Right lower extremity swelling and redness improving. Ambulating, complains of minimal back pain Patient complains of intermittent spasmodic back pain. Was unable to sleep last night. Start Robaxin 500 twice daily as needed. 08/11 Slept okay. Overall feeling a little better. No new complaints. Leukocytosis resolved. He does have some diarrhea. Has a history of COPD and is on oxygen 2 L at night and sometimes during the day. Has a chronic cough. 08/12 Slept okay. Complains of stomachache generalized and bloating, feels it might be from the oral contrast study yesterday. And some occasional nausea. No other complaints. Possible lung mass biopsy today. The abdomen pelvis yesterday unremarkable. CT chest in the morning showed multiple pulmonary nodules and several masses with largest 3.3 x 3.3 cm. Review of Systems: denies headache/fever/chills/nausea/vomiting/chest or abdominal pain. Otherwise see above. Constitutional Vitals: Vital Signs Temp Pulse Resp BP Pulse Ox 97.8 F 80 14 123/65 100 08/12/20 04:13 08/12/20 04:13 08/12/20 04:13 08/12/20 04:13 08/12/20 04:13 Period Temp Pulse Resp BP Sys/[place] Pulse Ox Last 24 Hr 97.5 F-98.4 F 80-107 14-18 120-156/56-71 97-100 Intake and Output 08/11/20 08/12/20 08/12/20 21:59 05:59 13:59 Intake Total 1160 360 Output Total 408 200 Balance 752 160 Weight 76.005 kg Intake & Output: Intake & Output 08/11/20 08/12/20 08/12/20 21:59 05:59 13:59 Intake Total 1160 360 Output Total 408 200 Balance 752 160 Weight 76.005 kg Intake: IV 1000 Sodium Chloride 0.9% 1,000 ml @ 1000 50 mls/hr IV .Q20H [facility] Rx#: [id number] Oral 160 360 Output: Void Amount 405 200 # of times incontinent of urine 3 Other: Meal Nourishment/Supplement Percent of Meal Consumed 100% Feeding Ability Independent Nourishment/Supplement name HS snack Urine Appearance Clear Urine Color Bright Yellow Urine Odor Normal Stool Size Smear Smear Stool Color Brown Stool Consistency Watery Watery Loose # Voids 1 # Bowel Movements 1 1 Exam: General: Alert, Awake, No acute Distress Eyes/N/T: EOMI, Head/Neck: neck supple, CV: RRR, No murmurs, Pulm: mild rales b/l, no wheezing Abd: soft, nontender, +BS x4 Ext: no clubbing/cyanosis. RLE erythema improved. b/l LE 2-3+ edema Neuro: Alert, no focal deficits, moves all extremities, Skin: warm/dry OBJ DATA Labs CBC & Chem 7: 08/10/20 06:09 08/11/20 05:00 Labs: Abnormal Lab Results 08/11/20 08/10/20 08/10/20 05:00 06:09 06:09 WBC RBC 3.78 L Hgb 11.4 L Hct 34.8 L POC Hct MPV 11.1 H Neut % (Auto) 79.0 H Lymph % (Auto) 8.8 L Lymph # (Auto) 0.91 L [place] # (Auto) 0.99 H Absolute Neutrophils 8.17 H ESR 43 H Carbon Dioxide 21 L 18 L Anion Gap 18.0 H 24.0 H POC BUN BUN 105 H* 114 H* Creatinine 5.3 H* 5.3 H* POC Creatinine Glucose 139 H POC Glucose Uric Acid 11.0 H 12.2 H Calcium 11.0 H 11.1 H Phosphorus 7.4 H* 7.6 H* Magnesium 1.4 L Ferritin 753.8 H C-Reactive Protein 2.30 H Globulin 3.9 H Albumin/Globulin Ratio 0.9 L 0.9 L Triglycerides 177 H 253 H Procalcitonin 08/09/20 08/09/20 08/09/20 11:01 11:01 11:01 WBC 12.1 H RBC 3.69 L Hgb 11.0 L Hct 34.3 L POC Hct 34 L MPV 10.9 H Neut % (Auto) 79.3 H Lymph % (Auto) 8.8 L Lymph # (Auto) 1.06 L [place] # (Auto) 1.20 H Absolute Neutrophils 9.61 H ESR Carbon Dioxide Anion Gap POC BUN 135 H* BUN Creatinine POC Creatinine 6.7 H* Glucose POC Glucose 68 L Uric Acid Calcium Phosphorus Magnesium Ferritin C-Reactive Protein Globulin Albumin/Globulin Ratio Triglycerides Procalcitonin 0.25 H Meds: Medications Acetaminophen (Tylenol) 650 mg PO Q4-6HP PRN; Protocol PRN Reason: Per Pain Protocol/Fever > 101 Last Admin: 08/10/20 14:30 Dose: 650 mg Documented by: Hydrocodone Bitart/Acetaminophen ([place] 5/325mg) 1 tab PO Q6HP PRN; Protocol PRN Reason: Per Pain Protocol Last Admin: 08/11/20 23:56 Dose: 1 tab Documented by: Bisacodyl (Dulcolax) 10 mg MA Q2-3DAYS PRN PRN Reason: Constipation Cyanocobalamin (Vitamin B-12) 1,000 mcg PO BID [facility] Stop: 08/14/20 09:01 Last Admin: 08/11/20 21:32 Dose: 1,000 mcg Documented by: Dextrose (Dextrose 50%) 0 ml IV UD PRN PRN Reason: Hypoglycemia Diagnostic Test (Pha) (Accu-Chek) 1 each FS ACHS [facility] Last Admin: 08/11/20 21:10 Dose: 1 each Documented by: Docusate Sodium (Colace) 100 mg PO BID [facility] Last Admin: 08/11/20 21:13 Dose: Not Given Documented by: Glucose (Insta-Glucose) 15 gm PO PRN PRN PRN Reason: Hypoglycemia Heparin Sodium (Porcine) (Heparin) 5,000 unit SQ Q12 [facility] Last Admin: 08/11/20 21:31 Dose: 5,000 unit Documented by: Hydralazine HCl (Apresoline) 10 mg IV Q4-6HP PRN PRN Reason: Hypertension Acetaminophen (Ofirmev) 650 mg in 65 mls @ 130 mls/hr IV Q6HP PRN; Protocol PRN Reason: Per Pain Protocol/Fever > 101 Last Infusion: 08/10/20 06:21 Dose: Infused Documented by: Magnesium Sulfate (Magnesium Sulfate) 2 gm in 50 mls @ 50 mls/hr IV UD PRN PRN Reason: MG = or < 1.7 Last Infusion: 08/10/20 18:25 Dose: Infused Documented by: Ceftriaxone Sodium 2 gm/ (Dextrose) 50 mls @ 100 mls/hr IV DAILY [facility]; Protocol Last Infusion: 08/11/20 12:30 Dose: Infused Documented by: Insulin Human Lispro (Humalog) 0 unit SQ ACHS [facility]; Protocol Last Admin: 08/11/20 21:13 Dose: Not Given Documented by: Iron Carb/Multivit/Carton Repairer/Folic Acid (Multivitamin W/Minerals) 1 tab PO DAILY [facility] Last Admin: 08/11/20 10:10 Dose: 1 tab Documented by: Loperamide HCl (Imodium) 2 mg PO PRN PRN PRN Reason: Diarrhea Last Admin: 08/11/20 22:49 Dose: 2 mg Documented by: Melatonin (Melatonin 3mg Tablet) 3 mg PO HS [facility] Last Admin: 08/11/20 21:32 Dose: 3 mg Documented by: Methocarbamol (Robaxin) 500 mg PO BIDP PRN PRN Reason: Muscle Spasm Last Admin: 08/11/20 22:49 Dose: 500 mg Documented by: Metoprolol Tartrate (Lopressor) 5 mg IV Q5M PRN PRN Reason: Heart Rate > 140 bpm Ondansetron HCl (Zofran Odt) 4 mg SL Q4-6HP PRN; Protocol PRN Reason: Nausea And Vomiting Ondansetron HCl (Zofran) 4 mg IV Q4-6HP PRN; Protocol PRN Reason: Nausea And Vomiting Last Admin: 08/12/20 06:06 Dose: 4 mg Documented by: Polyethylene Glycol (Miralax) 17 gm PO DAILYP PRN PRN Reason: Constipation Senna/Docusate Sodium (Senna Plus Tablet) 1 tab PO HS [facility] Last Admin: 08/11/20 21:13 Dose: Not Given Documented by: Sodium Chloride (Saline Flush) 10 ml IV Q8 [facility] Last Admin: 08/12/20 04:14 Dose: Not Given Documented by: A/P Narrative A/P Narrative: A: *RLE cellulitis: failed outpatient treatment -clinically improved. No fluctuance or evidence of deep-seated infection. Doppler ultrasound negative for DVT -Leukocytosis resolved *HTN: home dose Coreg *DM type II: -with episodes of hypoglycemia. Hold insulin. *COPD(on 2L@night and sometimes during the day at home): stable on bronchodilators *GERD: continue PPI *CKD stage IV: Managed by Dr. Yee. Creatinine at 6.7. Avoid nephrotoxins *Peripheral Edema: *Pulmonary nodules/masses: ?metastatic RCC vs lung -CT abd/pelv unremarkable Plan: -Continue rocephin -Nephrology consult -pending lung mass biopsy -cont home diuretics, cont home coreg but lower dose given bp -hold basal insulin/glipizide, cont SSI for now -PT OT nutrition support -ppx: heparin/home ppi Full code Time Spent With Patient Time: Total time spent is greater than 50% in coordination of care (as documented) at patient's floor/unit and/or counseling patient: QUALITY Stroke Symptom Onset Unknown: No VTE Deep Vein Thrombosis/Pulmonary Embolism Present on Admission: No
[2020-08-12] MEDS: INSULIN LISPRO 1 UNIT/0.01 ML UNIT SQ SCH ×4 (07:29→20:40)
[2020-08-12] MEDS: OMEPRAZOLE 20 MG CAPSULE PO SCH (07:33)
[2020-08-12] MEDS ORDERED: SIMETHICONE 80 MG TAB.CHEW CHEWED ONE (07:44)
[2020-08-12] MEDS ORDERED: CALCIUM CARBONATE 500 MG TAB.CHEW CHEWED ONE (07:44)
[2020-08-12] MEDS ORDERED: ALBUMIN HUMAN 12.5 GM/50 ML BAG IV ONE (07:46)
[2020-08-12] MEDS ORDERED: FUROSEMIDE 40 MG/4 ML VIAL IV ONE (07:46)
[2020-08-12 07:56] LABS: ALT/SGPT 23 U/L (<40); AST/SGOT 32 U/L (<32); Albumin 3.6 gm/dL (3.2-5.2); Alkaline Phosphatase 76 U/L (39-117); Bilirubin,Direct < 0.2 mg/dL (<0.3); Bilirubin,Total 0.4 mg/dL (0.1-1.0); Blood Urea Nitrogen 97 mg/dL (8-23); Calcium 10.9 mg/dL (8.6-10.4); Carbon Dioxide 21 mmol/L (22-30); Chloride 98 mmol/L (96-108); Globulin 3.5 gm/dL (2.2-3.7); Glomerular Filtration Rate 8; Glucose 87 mg/dL (70-105); Lactate Dehydrogenase 197 U/L (135-225); Phosphorous 7.2 mg/dL (2.5-4.5); Triglycerides 181 mg/dL (<150); Uric Acid 10.5 mg/dL (2.5-8.0)
[2020-08-12 08:05] LABS: INR 1.2 (0.9-1.1); Prothrombin Time 16.1 sec (11.9-14.5)
[2020-08-12] MEDS: CARVEDILOL 3.125 MG TABLET PO SCH ×2 (08:55→18:53)
[2020-08-12] MEDS: DOCUSATE SODIUM 100 MG CAPSULE PO SCH ×2 (08:56→19:17)
[2020-08-12] MEDS: MULTIVIT,THER IRON,CA,FA & MIN 1 TABLET PO SCH (08:56)
[2020-08-12] MEDS: HEPARIN 5,000 UNIT/ML VIAL SQ SCH ×2 (08:56→20:40)
[2020-08-12] MEDS: CYANOCOBALAMIN (VITAMIN B-12) 500 MCG TABLET PO SCH ×2 (08:57→20:40)
[2020-08-12] MEDS ORDERED: TORSEMIDE 10 MG TABLET PO SCH (09:00)
[2020-08-12 09:04] LABS: Estimated Average Glucose(eAG) 111 mg/dL; Hemoglobin A1C 5.5 % Hgb (4.0-6.0)
[2020-08-12] MEDS: cefTRIAXone 2 GM in DEXTROSE 5% IN WATER 50 ML IV SCH ×2 (10:22→11:50)
[2020-08-12] MEDS ORDERED: MAG HYDROX/AL HYDROX/SIMETH 30 ML ORAL.SUSP PO ONE (10:35)
--- NOTE | 2020-08-12 11:24 | Consultation ---
DATE OF CONSULTATION: 08/12/2020 REASON FOR CONSULTATION: Acute on chronic kidney disease. HISTORY OF PRESENT ILLNESS: The patient is a 74-year-old female with past medical history significant for chronic kidney disease, stage 5. She has an AV fistula in the left upper extremity, and it does not seem like it is maturing very well. She has also been thinking about doing home dialysis. For that reason, she had a consultation with Dr. Palencia, and she is scheduled to have a peritoneal dialysis catheter placed on 08/28/2020, I believe. Meanwhile, she developed cellulitis of the lower extremity, especially worse on the right about 2 weeks ago. She went to primary care and got doxycycline and Keflex as oral antibiotics for the cellulitis, and it was just not getting better. I saw her about 10 days ago and increased her diuretics to assist with fluid removal and also had her continue the antibiotic for another week. The pain in the right lower extremity continued to get worse, for which she presented to the emergency room. She had significantly elevated BUN and creatinine at that time. For those reasons, she is hospitalized. In the hospital, she was found to have pulmonary nodules for which a CT of the chest and abdomen has been done. She is scheduled to have a biopsy of one of the masses at 2:00 p.m. today. She had Doppler ultrasound of the lower extremities, which did not show any evidence of DVT. PAST MEDICAL HISTORY: 1. Chronic kidney disease stage 5, contemplating dialysis. 2. COPD. 3. Cellulitis of the lower extremities. 4. Benign neoplasm of the colon in the past. 5. Renal cell carcinoma with status post nephrectomy in 2017. 6. Diabetes. 7. Obstructive sleep apnea. 8. Gout. PAST SURGICAL HISTORY: 1. History of cholecystectomy. 2. History of partial nephrectomy in 2017. FAMILY HISTORY: Father at age of 76 from COPD. Mother of COPD and renal disease. SOCIAL HISTORY: She quit smoking in 1986. She has occasional alcohol. No drug use. MEDICATIONS: 1. Vitamin B complex one tablet once daily. 2. Simvastatin 40 mg once daily. 3. Omeprazole 20 mg once daily. 4. Carvedilol 12.5 mg twice daily. 5. Glipizide 10 mg once daily. 6. Torsemide 20 mg once daily. 7. Insulin. 8. She has also been taking doxycycline and Keflex for cellulitis. REVIEW OF SYSTEMS: Rest of systems are reviewed and are as indicated in history of present illness. PHYSICAL EXAMINATION: GENERAL: On examination, she is alert, oriented x3, no apparent distress. VITAL SIGNS: Blood pressures have been in 110-120 systolic with diastolic in 60s. Pulse rates have been in 100s. Temperature 97.9 with a pulse oximetry of 83%. HEENT: NC/AT. Pupils are reactive. External ear and tympanic membranes appear normal. Oral cavity appears normal with normal mucosa. NECK: Supple, no jugular venous distention. No lymphadenopathy, no thyromegaly, no carotid bruits. LUNGS: Decreased air entry bilaterally, no rales or rhonchi heard. CARDIOVASCULAR: S1, S2 heard. No S3, S4. No murmurs, no rubs. ABDOMEN: Soft, nontender, no organomegaly, positive bowel sounds, no mass, no rebound. EXTREMITIES: Showed 1+ edema, slight erythema which is slightly better. Difficult to palpate her dorsalis pedis and posterior tibialis. No skin rash or joint swelling is noted. NEUROLOGIC: Grossly intact. LABORATORY DATA: White count is 10.3 with hemoglobin of 11.4 and a platelet count of 168. Sodium 137, potassium 4.2, chloride of 98, CO2 of 21, BUN of 97 with a creatinine of 5.2. Calcium is elevated at 10.9 with a phosphorus of 7.2. ASSESSMENT AND PLAN: 1. Stage 5 kidney disease. She was contemplating whether to do peritoneal dialysis. She was scheduled to have a PD catheter placement. Now that we have a new diagnosis of a tumor, we have to think about that option. She does have an AV fistula in the left upper extremity. She had some nausea this morning, but there are no other imminent indications for hemodialysis at this time. 2. Hypercalcemia, getting better. I am not sure why that is, but she always had a slightly higher calcium. 3. Hyperphosphatemia. We will treat with sevelamer. 4. Anemia. Hemoglobin has been steady. Karla Job ID: [id number] Doc ID: [id number] César Yee MD
[2020-08-12] MEDS: SEVELAMER 800 MG TABLET PO SCH ×2 (13:36→18:53)
[2020-08-12] MEDS ORDERED: LIDOCAINE 1% 20 ML VIAL SQ ONE (14:29)
--- NOTE | 2020-08-12 16:29 | XRay Report ---
INDICATION: POST LUNG BX TECHNIQUE: AP portable semiupright chest x-ray COMPARISON: Previous chest x-ray dated 08/11/2020 FINDINGS:Examination was performed following CT guided right lung biopsy. There is no postbiopsy pneumothorax. Lungs:Multiple right-sided lung masses as well as right hilar mass. Right upper lobe mass is less well-defined than on prebiopsy study, probably secondary to post biopsy saline or hemorrhage. Heart, vascular:No significant cardiomegaly. Pulmonary vascularity is normal. No pulmonary edema or pulmonary congestion Mediastinum, claudia:There is right hilar enlargement, unchanged Pleura:No pleural fluid. No pleural-based mass or calcification Skeletal:Negative. IMPRESSION: No detectable pneumothorax following CT-guided right lung biopsy Interpreted and Authenticated by: Manuel Trent 08/12/20
[2020-08-12] MEDS: FLUTICASONE FUROATE INH SCH (16:37)
[2020-08-12] MEDS: UMECLIDINIUM INH SCH (16:37)
[2020-08-12] MEDS: VILANTEROL INH SCH (16:37)
--- NOTE | 2020-08-12 16:42 | Cat Scan Report ---
INDICATION: lung masses, TECHNIQUE: Informed consent was obtained. Discussed the risks and potential complications including pneumothorax, hemoptysis, . The patient was scanned in a prone position. Right upper lobe mass was localized. Routine ChloraPrep skin cleansing. 1% lidocaine injected subcutaneously and deep. An 18-gauge coaxial needle biopsy system was utilized. Guiding needle was placed within the right upper lobe mass. 4 passes were made. The hub of the guiding needle was kept filled with saline and was not exposed to air. No immediate complications. There is no postbiopsy pneumothorax. Follow-up chest x-ray is scheduled in one hour IMPRESSION: 1. CT-guided biopsy of a right upper lobe pulmonary parenchymal mass 2. No complications Interpreted and Authenticated by: Manuel Trent 08/12/20
[2020-08-12] MEDS: SENNOSIDES/DOCUSATE SODIUM 1 TAB TABLET PO SCH (19:18)
[2020-08-12] MEDS: MELATONIN 3 MG TABLET PO SCH (20:40)
[2020-08-12] MEDS: SIMVASTATIN 40 MG TABLET PO SCH (20:40)
[2020-08-13] MEDS: 0.9 % SODIUM CHLORIDE 10 ML SYRINGE IV SCH ×3 (04:53→22:14)
--- NOTE | 2020-08-13 07:24 | Internal Med Progress Note ---
SUBJECTIVE Subjective Patient information: Note initiated : 08/13/20 at 7:20 am Service Date, if different from initiated Date: [] Patient: Kellee Heller a 74 y/o F admitted on 08/09/20 for cellulitis. Chief Complaint: [] Interval history: History of present illness: Ms. Heller is a 74 year old F with a history of end- stage renal disease managed by slope runner Dr. Yee. Over the last couple of weeks patient noted increasing redness/pain and swelling around the right ankle extending up to the lower one third of leg. Symptoms gradually progressed with intensifying pain and redness and swelling. A week later she noted left lower extremity pain and swelling. She was evaluated in the [facility] care on 07/24 and was diagnosed with cellulitis right lower extremity and was started on doxycycline/Keflex. However despite treatment patient symptoms fail to resolve. She was referred by her slope runner to the ER today due to worsening symptoms increasing pain and difficulty ambulation. Initial work-up in the ER was consistent with right lower externally cellulitis. Negative Doppler ultrasound for DVT. Patient was started on Rocephin/vanc omycin. Subsequently hospital service was consulted after case was discussed with slope runner who recommended admission At the time of my evaluation patient is alert and oriented. She denies active distress. She denies trauma/open wound or draining sores. She has not had similar symptoms or recurrent skin infection in the past. She denies diarrhea, dysuria, bloody stool, fever, chills. She further denies chest pain, shortness of breath headache lightheadedness or dizziness. 08/10-Patient doing well. On antibiotic coverage. White count downtrending. No overnight fever chills nausea vomiting, nursing staff expressed concerns about episode of hypoglycemia with blood sugar 48. Insulin held. Likely secondary to sustained insulin effect in light of renal failure. Right lower extremity swelling and redness improving. Ambulating, complains of minimal back pain Patient complains of intermittent spasmodic back pain. Was unable to sleep last night. Start Robaxin 500 twice daily as needed. 08/11 Slept okay. Overall feeling a little better. No new complaints. Leukocytosis resolved. He does have some diarrhea. Has a history of COPD and is on oxygen 2 L at night and sometimes during the day. Has a chronic cough. 08/12 Slept okay. Complains of stomachache generalized and bloating, feels it might be from the oral contrast study yesterday. And some occasional nausea. No other complaints. Possible lung mass biopsy today. The abdomen pelvis yesterday unremarkable. CT chest in the morning showed multiple pulmonary nodules and several masses with largest 3.3 x 3.3 cm. 08/13 Patient states she slept a little bit better last night. Still has a bit of a stomachache from the contrast study. Some occasional nausea. Diarrhea is slowing down since the contrast study. To Joselito considering starting dialysis he inpatient. Review of Systems: denies headache/fever/chills/nausea/vomiting/chest pain. Otherwise see above. Constitutional Vitals: Vital Signs Temp Pulse Resp BP Pulse Ox 97.7 F 106 H 16 132/58 92 08/13/20 07:18 08/13/20 07:18 08/13/20 07:18 08/13/20 07:18 08/13/20 07:18 Period Temp Pulse Resp BP Sys/[place] Pulse Ox Last 24 Hr 97.3 F-98.8 F 75-107 - 94-144/48-70 92-100 Intake and Output 08/12/20 08/13/20 08/13/20 21:59 05:59 13:59 Intake Total 600 200 Output Total 25 195 Balance 575 5 Weight 76.294 kg Intake & Output: Intake & Output 08/12/20 08/13/20 08/13/20 21:59 05:59 13:59 Intake Total 600 200 Output Total 25 195 Balance 575 5 Weight 76.294 kg Intake: IV 600 Sodium Chloride 0.9% 1,000 ml @ 600 50 mls/hr IV .Q20H [facility] Rx#: [id number] Oral 200 Output: Void Amount 25 195 Other: Urine Appearance Clear Urine Color Pale Urine Odor Normal # of times incontinent of 1 Bowels Exam: General: Alert, Awake, No acute Distress Eyes/N/T: EOMI, Head/Neck: neck supple, CV: RRR, No murmurs, Pulm: mild rales b/l, no wheezing Abd: soft, nontender, +BS x4 Ext: no clubbing/cyanosis. RLE erythema improved. b/l LE + edema Neuro: Alert, no focal deficits, moves all extremities, Skin: warm/dry OBJ DATA Labs CBC & Chem 7: 08/10/20 06:09 08/13/20 05:12 Labs: Abnormal Lab Results 08/12/20 08/12/20 08/11/20 05:22 05:21 05:00 RBC Hgb Hct MPV Neut % (Auto) Lymph % (Auto) Lymph # (Auto) [place] # (Auto) Absolute Neutrophils ESR PT 16.1 H INR 1.2 H Carbon Dioxide 21 L 21 L Anion Gap 18.0 H 18.0 H BUN 97 H 105 H* Creatinine 5.2 H* 5.3 H* Glucose Uric Acid 10.5 H 11.0 H Calcium 10.9 H 11.0 H Phosphorus 7.2 H* 7.4 H* Magnesium Ferritin GGT 59 H AST 32 H C-Reactive Protein Globulin Albumin/Globulin Ratio 0.9 L Triglycerides 181 H 177 H 08/10/20 08/10/20 06:09 06:09 RBC 3.78 L Hgb 11.4 L Hct 34.8 L MPV 11.1 H Neut % (Auto) 79.0 H Lymph % (Auto) 8.8 L Lymph # (Auto) 0.91 L [place] # (Auto) 0.99 H Absolute Neutrophils 8.17 H ESR 43 H PT INR Carbon Dioxide 18 L Anion Gap 24.0 H BUN 114 H* Creatinine 5.3 H* Glucose 139 H Uric Acid 12.2 H Calcium 11.1 H Phosphorus 7.6 H* Magnesium 1.4 L Ferritin 753.8 H GGT AST C-Reactive Protein 2.30 H Globulin 3.9 H Albumin/Globulin Ratio 0.9 L Triglycerides 253 H Meds: Medications Acetaminophen (Tylenol) 650 mg PO Q4-6HP PRN; Protocol PRN Reason: Per Pain Protocol/Fever > 101 Last Admin: 08/10/20 14:30 Dose: 650 mg Documented by: Hydrocodone Bitart/Acetaminophen ([place] 5/325mg) 1 tab PO Q6HP PRN; Protocol PRN Reason: Per Pain Protocol Last Admin: 08/11/20 23:56 Dose: 1 tab Documented by: Bisacodyl (Dulcolax) 10 mg MS Q2-3DAYS PRN PRN Reason: Constipation Carvedilol (Coreg) 3.125 mg PO BIDCC [facility] Last Admin: 08/12/20 18:53 Dose: Not Given Documented by: Cyanocobalamin (Vitamin B-12) 1,000 mcg PO BID [facility] Stop: 08/14/20 09:01 Last Admin: 08/12/20 20:40 Dose: 1,000 mcg Documented by: Dextrose (Dextrose 50%) 0 ml IV UD PRN PRN Reason: Hypoglycemia Diagnostic Test (Pha) (Accu-Chek) 1 each FS ACHS [facility] Last Admin: 08/12/20 20:39 Dose: 1 each Documented by: Docusate Sodium (Colace) 100 mg PO BID [facility] Last Admin: 08/12/20 19:17 Dose: Not Given Documented by: Glucose (Insta-Glucose) 15 gm PO PRN PRN PRN Reason: Hypoglycemia Heparin Sodium (Porcine) (Heparin) 5,000 unit SQ Q12 [facility] Last Admin: 08/12/20 20:40 Dose: 5,000 unit Documented by: Hydralazine HCl (Apresoline) 10 mg IV Q4-6HP PRN PRN Reason: Hypertension Acetaminophen (Ofirmev) 650 mg in 65 mls @ 130 mls/hr IV Q6HP PRN; Protocol PRN Reason: Per Pain Protocol/Fever > 101 Last Infusion: 08/10/20 06:21 Dose: Infused Documented by: Magnesium Sulfate (Magnesium Sulfate) 2 gm in 50 mls @ 50 mls/hr IV UD PRN PRN Reason: MG = or < 1.7 Last Infusion: 08/10/20 18:25 Dose: Infused Documented by: Ceftriaxone Sodium 2 gm/ (Dextrose) 50 mls @ 100 mls/hr IV DAILY [facility]; Protocol Last Infusion: 08/12/20 12:20 Dose: Infused Documented by: Insulin Human Lispro (Humalog) 0 unit SQ [facility]; Protocol Last Admin: 08/12/20 20:40 Dose: Not Given Documented by: Iron Carb/Multivit/[place]/Folic Acid (Multivitamin W/Minerals) 1 tab PO DAILY [facility] Last Admin: 08/12/20 08:56 Dose: Not Given Documented by: Loperamide HCl (Imodium) 2 mg PO PRN PRN PRN Reason: Diarrhea Last Admin: 08/11/20 22:49 Dose: 2 mg Documented by: Melatonin (Melatonin 3mg Tablet) 3 mg PO HS [facility] Last Admin: 08/12/20 20:40 Dose: 3 mg Documented by: Methocarbamol (Robaxin) 500 mg PO BIDP PRN PRN Reason: Muscle Spasm Last Admin: 08/11/20 22:49 Dose: 500 mg Documented by: Metoprolol Tartrate (Lopressor) 5 mg IV Q5M PRN PRN Reason: Heart Rate > 140 bpm Omeprazole (Prilosec) 20 mg PO ACB [facility] Last Admin: 08/12/20 07:33 Dose: 20 mg Documented by: Ondansetron HCl (Zofran Odt) 4 mg SL Q4-6HP PRN; Protocol PRN Reason: Nausea And Vomiting Ondansetron HCl (Zofran) 4 mg IV Q4-6HP PRN; Protocol PRN Reason: Nausea And Vomiting Last Admin: 08/12/20 06:06 Dose: 4 mg Documented by: Fluticasone Furoate- Vilanterol 100 Mcg/25 Mcg/Actuation Inhaler 1 dose INH DAILY [facility] Last Admin: 08/12/20 16:37 Dose: Not Given Documented by: Umeclidinium [ Incruse Ellipta] 62. 5 Mcg/Inhalation Inhaler 1 dose INH DAILY [facility] Last Admin: 08/12/20 16:37 Dose: Not Given Documented by: Polyethylene Glycol (Miralax) 17 gm PO DAILYP PRN PRN Reason: Constipation Senna/Docusate Sodium (Senna Plus Tablet) 1 tab PO HS [facility] Last Admin: 08/12/20 19:18 Dose: Not Given Documented by: Sevelamer Carbonate (Renvela) 2,400 mg PO TIDCC [facility] Last Admin: 08/12/20 18:53 Dose: Not Given Documented by: Simvastatin (Zocor) 40 mg PO QPM [facility] Last Admin: 08/12/20 20:40 Dose: 40 mg Documented by: Sodium Chloride (Saline Flush) 10 ml IV Q8 [facility] Last Admin: 08/13/20 04:53 Dose: 10 ml Documented by: Torsemide (Demadex) 20 mg PO QDAY [facility] A/P Narrative A/P Narrative: A: *RLE cellulitis: failed outpatient treatment -clinically improved. No fluctuance or evidence of deep-seated infection. Doppler ultrasound negative for DVT -Leukocytosis resolved *HTN: home dose Coreg *h/o DM type II: A1c 5.5 -with episodes of hypoglycemia. Hold DM regimen *COPD(on 2L@night and sometimes during the day at home): stable on bronchodilators *GERD: continue PPI *CKD stage V: Managed by Dr. Yee. Creatinine at 6.7. Avoid nephrotoxins *Peripheral Edema: *Pulmonary nodules/masses: ?metastatic RCC vs lung -CT abd/pelv unremarkable Plan: -Nephrology following, may start HD inpt -Continue rocephin -pending lung mass biopsy results -cont home diuretics, cont home coreg but lower dose given bp and titrate as as appropriate -hold basal insulin/glipizide, accuchecks -PT OT nutrition support -ppx: heparin/home ppi Full code Time Spent With Patient Time: Total time spent is greater than 50% in coordination of care (as documented) at patient's floor/unit and/or counseling patient: QUALITY Stroke Symptom Onset Unknown: No VTE Deep Vein Thrombosis/Pulmonary Embolism Present on Admission: No
[2020-08-13 07:50] LABS: Blood Urea Nitrogen 106 mg/dL (8-23); Calcium 10.5 mg/dL (8.6-10.4); Carbon Dioxide 19 mmol/L (22-30); Chloride 97 mmol/L (96-108); Glomerular Filtration Rate 6; Glucose 84 mg/dL (70-105)
[2020-08-13] MEDS ORDERED: BISMUTH SUBSALICYLATE 15 ML ORAL.SUSP PO ONE (07:59)
[2020-08-13] MEDS: INSULIN LISPRO 1 UNIT/0.01 ML UNIT SQ SCH ×4 (08:05→20:46)
[2020-08-13] MEDS: OMEPRAZOLE 20 MG CAPSULE PO SCH (08:23)
[2020-08-13] MEDS: DOCUSATE SODIUM 100 MG CAPSULE PO SCH ×2 (08:24→21:48)
[2020-08-13] MEDS: cefTRIAXone 2 GM in DEXTROSE 5% IN WATER 50 ML IV SCH (08:57)
--- NOTE | 2020-08-13 09:15 | Nephrology Progress Note ---
SUBJECTIVE Subjective Patient information: Note initiated : 08/13/20 at 9:10 am Service Date, if different from initiated Date: [] Patient: Kellee Heller 74 y/o F admitted on 08/09/20 for cellulitis. Chief Complaint: [] Stomach is still upset. Wants to have a BM. Constitutional Vitals: Vital Signs Temp Pulse Resp BP Pulse Ox 97.7 F 106 H 16 132/58 92 08/13/20 07:18 08/13/20 07:18 08/13/20 07:18 08/13/20 07:18 08/13/20 07:18 Period Temp Pulse Resp BP Sys/[place] Pulse Ox Last 24 Hr 97.3 F-98.8 F 81-107 - 107-144/48-70 92-100 Intake and Output 08/12/20 08/13/20 08/13/20 21:59 05:59 13:59 Intake Total 600 200 Output Total 25 195 125 Balance 575 5 -125 Weight 168 lb 3.2 oz Intake & Output: Intake & Output 08/12/20 08/13/20 08/13/20 21:59 05:59 13:59 Intake Total 600 200 Output Total 25 195 125 Balance 575 5 -125 Weight 168 lb 3.2 oz Intake: IV 600 Sodium Chloride 0.9% 1,000 ml @ 600 50 mls/hr IV .Q20H [facility] Rx#: [id number] Oral 200 Output: Void Amount 25 195 125 Other: Urine Appearance Clear Clear Urine Color Pale Dark Yellow Urine Odor Normal Normal Stool Size Moderate Stool Color Brown Stool Consistency Loose # of times incontinent of 1 Bowels Alert, Awake, No acute Distress Eyes/N/T: EOMI, Head/Neck: neck supple, CV: RRR, No murmurs, Pulm: mild rales b/l, Abd: soft, nontender, Ext: no clubbing/cyanosis. RLE erythema improved. b/l LE + edema Neuro: intact. A/P Narrative A/P Narrative: CKD stage 5. She is somewhat uremic. Will try to start dialysis using her AVF. Will use the smallest needle possible and have low blood flows. Hyperphosphotemia. Continued sevelemar. Will talk to outpatient center to see if we can dialyse her as outpatient at [facility]. Time Spent With Patient Time: Total time spent is greater than 50% in coordination of care (as documented) at patient's floor/unit and/or counseling patient:
[2020-08-13] MEDS: ONDANSETRON 4 MG/2 ML VIAL IV PRN ×2 (09:29→16:41)
[2020-08-13] MEDS: MULTIVIT,THER IRON,CA,FA & MIN 1 TABLET PO SCH (09:32)
[2020-08-13] MEDS: SIMETHICONE 80 MG TAB.CHEW CHEWED PRN (10:01)
[2020-08-13] MEDS: CYANOCOBALAMIN (VITAMIN B-12) 500 MCG TABLET PO SCH ×2 (10:46→20:41)
[2020-08-13] MEDS: CARVEDILOL 3.125 MG TABLET PO SCH ×2 (11:05→17:42)
[2020-08-13] MEDS: TORSEMIDE 10 MG TABLET PO SCH (11:05)
[2020-08-13] MEDS: SEVELAMER 800 MG TABLET PO SCH ×4 (11:05→17:58)
[2020-08-13] MEDS: FLUTICASONE FUROATE INH SCH (13:09)
[2020-08-13] MEDS: VILANTEROL INH SCH (13:09)
[2020-08-13] MEDS: UMECLIDINIUM INH SCH (13:09)
[2020-08-13] MEDS: HEPARIN 5,000 UNIT/ML VIAL SQ SCH ×2 (13:41→20:41)
[2020-08-13] MEDS: LOPERAMIDE 2 MG CAPSULE PO PRN (16:47)
[2020-08-13] MEDS: HYDROcodone/APAP 5/325MG TABLET PO PRN (19:55)
[2020-08-13] MEDS: MELATONIN 3 MG TABLET PO SCH (20:41)
[2020-08-13] MEDS: SIMVASTATIN 40 MG TABLET PO SCH (20:41)
[2020-08-13] MEDS: SENNOSIDES/DOCUSATE SODIUM 1 TAB TABLET PO SCH (21:48)
[2020-08-14] MEDS: 0.9 % SODIUM CHLORIDE 10 ML SYRINGE IV SCH ×2 (03:30→04:15)
[2020-08-14] MEDS: INSULIN LISPRO 1 UNIT/0.01 ML UNIT SQ SCH ×2 (07:23→11:13)
[2020-08-14] MEDS: OMEPRAZOLE 20 MG CAPSULE PO SCH (07:28)
[2020-08-14 07:42] LABS: Blood Urea Nitrogen 112 mg/dL (8-23); Calcium 9.8 mg/dL (8.6-10.4); Carbon Dioxide 20 mmol/L (22-30); Chloride 100 mmol/L (96-108); Glomerular Filtration Rate 7; Glucose 86 mg/dL (70-105)
[2020-08-14] MEDS: TORSEMIDE 10 MG TABLET PO SCH (08:16)
[2020-08-14] MEDS: SEVELAMER 800 MG TABLET PO SCH ×3 (08:16→12:14)
[2020-08-14] MEDS: CARVEDILOL 3.125 MG TABLET PO SCH (08:16)
[2020-08-14] MEDS: HEPARIN 5,000 UNIT/ML VIAL SQ SCH (08:17)
[2020-08-14] MEDS: MULTIVIT,THER IRON,CA,FA & MIN 1 TABLET PO SCH ×3 (08:17→08:35)
[2020-08-14] MEDS: cefTRIAXone 2 GM in DEXTROSE 5% IN WATER 50 ML IV SCH (08:17)
[2020-08-14] MEDS: CYANOCOBALAMIN (VITAMIN B-12) 500 MCG TABLET PO SCH (08:17)
[2020-08-14] MEDS: UMECLIDINIUM INH SCH (08:18)
[2020-08-14] MEDS: FLUTICASONE FUROATE INH SCH (08:18)
[2020-08-14] MEDS: VILANTEROL INH SCH (08:18)
--- NOTE | 2020-08-14 08:23 | Internal Med Progress Note ---
SUBJECTIVE Subjective Patient information: Note initiated : 08/14/20 at 8:21 am Service Date, if different from initiated Date: [] Patient: Kellee Heller a 75 y/o F admitted on 08/09/20 for cellulitis. Chief Complaint: [] Interval history: History of present illness: Ms. Heller is a 74 year old F with a history of end- stage renal disease managed by transplant nurse Dr. Yee. Over the last couple of weeks patient noted increasing redness/pain and swelling around the right ankle extending up to the lower one third of leg. Symptoms gradually progressed with intensifying pain and redness and swelling. A week later she noted left lower extremity pain and swelling. She was evaluated in the [facility] care on 07/24 and was diagnosed with cellulitis right lower extremity and was started on doxycycline/Keflex. However despite treatment patient symptoms fail to resolve. She was referred by her transplant nurse to the ER today due to worsening symptoms increasing pain and difficulty ambulation. Initial work-up in the ER was consistent with right lower externally cellulitis. Negative Doppler ultrasound for DVT. Patient was started on Rocephin/vanc omycin. Subsequently hospital service was consulted after case was discussed with transplant nurse who recommended admission At the time of my evaluation patient is alert and oriented. She denies active distress. She denies trauma/open wound or draining sores. She has not had similar symptoms or recurrent skin infection in the past. She denies diarrhea, dysuria, bloody stool, fever, chills. She further denies chest pain, shortness of breath headache lightheadedness or dizziness. 08/10-Patient doing well. On antibiotic coverage. White count downtrending. No overnight fever chills nausea vomiting, nursing staff expressed concerns about episode of hypoglycemia with blood sugar 48. Insulin held. Likely secondary to sustained insulin effect in light of renal failure. Right lower extremity swelling and redness improving. Ambulating, complains of minimal back pain Patient complains of intermittent spasmodic back pain. Was unable to sleep last night. Start Robaxin 500 twice daily as needed. 08/11 Slept okay. Overall feeling a little better. No new complaints. Leukocytosis resolved. He does have some diarrhea. Has a history of COPD and is on oxygen 2 L at night and sometimes during the day. Has a chronic cough. 08/12 Slept okay. Complains of stomachache generalized and bloating, feels it might be from the oral contrast study yesterday. And some occasional nausea. No other complaints. Possible lung mass biopsy today. The abdomen pelvis yesterday unremarkable. CT chest in the morning showed multiple pulmonary nodules and several masses with largest 3.3 x 3.3 cm. 08/13 Patient states she slept a little bit better last night. Still has a bit of a stomachache from the contrast study. Some occasional nausea. Diarrhea is slowing down since the contrast study. To Yee considering starting dialysis he inpatient. 08/14 Attempted hemodialysis yesterday but seem to be infiltration when using the fistula. Patient slept all right. She has some nausea this morning. Diarrhea improved. She does feel some abdominal bloating. Review of Systems: denies headache/fever/chills/vomiting/chest pain. Otherwise see above. Constitutional Vitals: Vital Signs Temp Pulse Resp BP Pulse Ox 97.2 F 104 H 20 119/55 97 08/14/20 07:12 08/14/20 07:31 08/14/20 07:31 08/14/20 07:12 08/14/20 07:31 Period Temp Pulse Resp BP Sys/Cowan Pulse Ox Last 24 Hr 97.2 F-99.1 F 86-104 14-24 102-159/55-76 90-97 Intake and Output 08/13/20 08/14/20 08/14/20 21:59 05:59 13:59 Intake Total 300 250 240 Output Total 75 126 Balance 225 124 240 Weight 76.294 kg 75.841 kg Intake & Output: Intake & Output 08/13/20 08/14/20 08/14/20 21:59 05:59 13:59 Intake Total 300 250 240 Output Total 75 126 Balance 225 124 240 Weight 76.294 kg 75.841 kg Intake: Oral 300 250 240 Output: Void Amount 75 125 # of times incontinent of urine 1 Hemodialysis UF 0 Other: Meal Breakfast Percent of Meal Consumed 25% Feeding Ability Assist with Tray Set Up Urine Appearance Clear Clear Clear Urine Color Bright Yellow Bright Yellow Bright Yellow Urine Odor Normal Normal Stool Size Small Stool Color Brown Stool Consistency Loose # Voids 1 1 # Bowel Movements 1 # of times incontinent of 1 Bowels Exam: General: Alert, Awake, No acute Distress Eyes/N/T: EOMI, Head/Neck: neck supple, CV: RRR, 1/6 SM, Pulm: mild bibase rales b/l, no wheezing Abd: soft, nontender, +BS x4 Ext: no clubbing/cyanosis. RLE erythema improved. b/l LE + edema improved Neuro: Alert, no focal deficits, moves all extremities, Skin: warm/dry OBJ DATA Labs CBC & Chem 7: 08/10/20 06:09 08/14/20 05:39 Labs: Abnormal Lab Results 08/14/20 08/13/20 08/12/20 05:39 05:12 05:22 PT INR Carbon Dioxide 20 L 19 L 21 L Anion Gap 20.0 H 18.0 H BUN 112 H* 106 H* 97 H Creatinine 5.8 H* 5.9 H* 5.2 H* Uric Acid 10.5 H Calcium 10.5 H 10.9 H Phosphorus 7.2 H* GGT 59 H AST 32 H Triglycerides 181 H 08/12/20 05:21 PT 16.1 H INR 1.2 H Carbon Dioxide Anion Gap BUN Creatinine Uric Acid Calcium Phosphorus GGT AST Triglycerides Meds: Medications Acetaminophen (Tylenol) 650 mg PO Q4-6HP PRN; Protocol PRN Reason: Per Pain Protocol/Fever > 101 Last Admin: 08/10/20 14:30 Dose: 650 mg Documented by: Hydrocodone Bitart/Acetaminophen ([place] 5/325mg) 1 tab PO Q6HP PRN; Protocol PRN Reason: Per Pain Protocol Last Admin: 08/13/20 19:55 Dose: 1 tab Documented by: Bisacodyl (Dulcolax) 10 mg MA Q2-3DAYS PRN PRN Reason: Constipation [facility] Last Admin: 08/14/20 08:16 Dose: 3.125 mg Documented by: Cyanocobalamin (Vitamin B-12) 1,000 mcg PO BID [facility] Stop: 08/14/20 09:01 Last Admin: 08/14/20 08:17 Dose: 1,000 mcg Documented by: Dextrose (Dextrose 50%) 0 ml IV UD PRN PRN Reason: Hypoglycemia Diagnostic Test (Pha) (Accu-Chek) 1 each FS ACHS [facility] Last Admin: 08/14/20 07:20 Dose: 1 each Documented by: Docusate Sodium (Colace) 100 mg PO BID [facility] Last Admin: 08/13/20 21:48 Dose: Not Given Documented by: Glucose (Insta-Glucose) 15 gm PO PRN PRN PRN Reason: Hypoglycemia Heparin Sodium (Porcine) (Heparin) 5,000 unit SQ Q12 [facility] Last Admin: 08/14/20 08:17 Dose: 5,000 unit Documented by: Hydralazine HCl (Apresoline) 10 mg IV Q4-6HP PRN PRN Reason: Hypertension Acetaminophen (Ofirmev) 650 mg in 65 mls @ 130 mls/hr IV Q6HP PRN; Protocol PRN Reason: Per Pain Protocol/Fever > 101 Last Infusion: 08/10/20 06:21 Dose: Infused Documented by: Magnesium Sulfate (Magnesium Sulfate) 2 gm in 50 mls @ 50 mls/hr IV UD PRN PRN Reason: MG = or < 1.7 Last Infusion: 08/10/20 18:25 Dose: Infused Documented by: Ceftriaxone Sodium 2 gm/ (Dextrose) 50 mls @ 100 mls/hr IV DAILY [facility]; Protocol Last Admin: 08/14/20 08:17 Dose: 100 mls/hr Documented by: Insulin Human Lispro (Humalog) 0 unit SQ ACHS [facility]; Protocol Last Admin: 08/14/20 07:23 Dose: Not Given Documented by: Iron Carb/Multivit/Lithopress Operator/Folic Acid (Multivitamin W/Minerals) 1 tab PO DAILY [facility] Last Admin: 08/14/20 08:17 Dose: 1 tab Documented by: Loperamide HCl (Imodium) 2 mg PO PRN PRN PRN Reason: Diarrhea Last Admin: 08/13/20 16:47 Dose: 2 mg Documented by: Melatonin (Melatonin 3mg Tablet) 3 mg PO HS [facility] Last Admin: 08/13/20 20:41 Dose: 3 mg Documented by: Methocarbamol (Robaxin) 500 mg PO BIDP PRN PRN Reason: Muscle Spasm Last Admin: 08/11/20 22:49 Dose: 500 mg Documented by: Metoprolol Tartrate (Lopressor) 5 mg IV Q5M PRN PRN Reason: Heart Rate > 140 bpm Omeprazole (Prilosec) 20 mg PO ACB [facility] Last Admin: 08/14/20 07:28 Dose: 20 mg Documented by: Ondansetron HCl (Zofran Odt) 4 mg SL Q4-6HP PRN; Protocol PRN Reason: Nausea And Vomiting Ondansetron HCl (Zofran) 4 mg IV Q4-6HP PRN; Protocol PRN Reason: Nausea And Vomiting Last Admin: 08/13/20 16:41 Dose: 4 mg Documented by: Fluticasone Furoate- Vilanterol 100 Mcg/25 Mcg/Actuation Inhaler 1 dose INH DAILY [facility] Last Admin: 08/14/20 08:18 Dose: 1 dose Documented by: Umeclidinium [ Incruse Ellipta] 62. 5 Mcg/Inhalation Inhaler 1 dose INH DAILY [facility] Last Admin: 08/14/20 08:18 Dose: 1 dose Documented by: Polyethylene Glycol (Miralax) 17 gm PO DAILYP PRN PRN Reason: Constipation Senna/Docusate Sodium (Senna Plus Tablet) 1 tab PO HS [facility] Last Admin: 08/13/20 21:48 Dose: Not Given Documented by: Sevelamer Carbonate (Renvela) 2,400 mg PO TIDCC [facility] Last Admin: 08/14/20 08:16 Dose: 2,400 mg Documented by: Simethicone (Mylicon) 80 mg CHEWED QIDP PRN PRN Reason: Dyspepsia Last Admin: 08/13/20 10:01 Dose: 80 mg Documented by: Simvastatin (Zocor) 40 mg PO QPM [facility] Last Admin: 08/13/20 20:41 Dose: 40 mg Documented by: Sodium Chloride (Saline Flush) 10 ml IV Q8 [facility] Last Admin: 08/14/20 04:15 Dose: Not Given Documented by: Torsemide (Demadex) 20 mg PO QDAY [facility] Last Admin: 08/14/20 08:16 Dose: 20 mg Documented by: A/P Narrative A/P Narrative: A: *RLE cellulitis: failed outpatient treatment -clinically improved. No fluctuance or evidence of deep-seated infection. Doppler ultrasound negative for DVT -Leukocytosis resolved *HTN: home dose Coreg *h/o DM type II: A1c 5.5 -with episodes of hypoglycemia. Hold DM regimen *COPD(on 2L@night and sometimes during the day at home): stable on bronchodilators *GERD: continue PPI *CKD stage V: Managed by Dr. Yee. Creatinine at 6.7. Avoid nephrotoxins *Peripheral Edema: *Pulmonary nodules/masses: ?metastatic RCC vs lung -CT abd/pelv unremarkable Plan: -Nephrology following, starting HD -Continue rocephin -pending lung mass biopsy results -cont home diuretics, cont home coreg but lower dose given bp and titrate as as appropriate -hold basal insulin/glipizide, accuchecks -PT OT nutrition support -ppx: heparin/home ppi Full code Time Spent With Patient Time: Total time spent is greater than 50% in coordination of care (as documented) at patient's floor/unit and/or counseling patient: QUALITY Stroke Symptom Onset Unknown: No VTE Deep Vein Thrombosis/Pulmonary Embolism Present on Admission: No
[2020-08-14] MEDS: DOCUSATE SODIUM 100 MG CAPSULE PO SCH (08:30)
[2020-08-14] MEDS: ONDANSETRON 4 MG/2 ML VIAL IV PRN (08:39)
[2020-08-14] MEDS: SIMETHICONE 80 MG TAB.CHEW CHEWED PRN (08:39)
--- NOTE | 2020-08-14 09:05 | Nephrology Progress Note ---
SUBJECTIVE Subjective Patient information: Note initiated : 08/14/20 at 9:03 am Service Date, if different from initiated Date: [] Patient: Kellee Heller 75 y/o F admitted on 08/09/20 for cellulitis. Chief Complaint: []Stomach still hurts. Had nausea and vomiting this morning. Constitutional Vitals: Vital Signs Temp Pulse Resp BP Pulse Ox 97.2 F 104 H 20 119/55 97 08/14/20 07:12 08/14/20 07:31 08/14/20 07:31 08/14/20 07:12 08/14/20 07:31 Period Temp Pulse Resp BP Sys/Cowan Pulse Ox Last 24 Hr 97.2 F-99.1 F 86-104 14-24 102-159/55-76 90-97 Intake and Output 08/13/20 08/14/20 08/14/20 21:59 05:59 13:59 Intake Total 300 250 240 Output Total 75 126 Balance 225 124 240 Weight 168 lb 3.2 oz 167 lb 3.2 oz Intake & Output: Intake & Output 08/13/20 08/14/20 08/14/20 21:59 05:59 13:59 Intake Total 300 250 240 Output Total 75 126 Balance 225 124 240 Weight 168 lb 3.2 oz 167 lb 3.2 oz Intake: Oral 300 250 240 Output: Void Amount 75 125 # of times incontinent of urine 1 Hemodialysis UF 0 Other: Meal Breakfast Percent of Meal Consumed 25% Feeding Ability Assist with Tray Set Up Urine Appearance Clear Clear Clear Urine Color Bright Yellow Bright Yellow Bright Yellow Urine Odor Normal Normal Stool Size Small Stool Color Brown Stool Consistency Loose # Voids 1 1 # Bowel Movements 1 # of times incontinent of 1 Bowels Alert, Awake, No acute Distress Eyes/N/T: EOMI, Head/Neck: neck supple, CV: RRR, No murmurs, Pulm: mild rales b/l, Abd: soft, nontender, Ext: no clubbing/cyanosis. RLE erythema improved. b/l LE + edema Neuro: intact. A/P Narrative A/P Narrative: CKD stage 5. She is somewhat uremic. Tried to start dialysis using her AVF yesterday and she infiltrated. It looks still very tender. Will have a tunnel cath placed as outpatient. Hyperphosphotemia. Continued sevelemar. Will talk to Dr. Diehl to switch doctors as she wants to dialyse as outpatient at [facility]. Time Spent With Patient Time: Total time spent is greater than 50% in coordination of care (as documented) at patient's floor/unit and/or counseling patient:
--- NOTE | 2020-08-14 10:06 | Transfer Summary ---
Discharge Provider Provider Patient information: Note initiated : 08/14/20 at 10:02 am Service Date, if different from initiated Date: [] Patient: Kellee Heller a 75 y/o F admitted on 08/09/20 for cellulitis. Chief Complaint: [] Date of admission: 08/09/20 15:16 Discharge date: 08/14/20 Primary care physician: Debra Mcclure DO Consults: 08/09/20 12:39 Consult to Physician [CONS] Stat Comment: Consulting Provider: Jh Nava Reason For Exam: Physician to Consult Discharge Meds Discharge Medications Home Medications vitamin B complex 1 tab-cap PO QDAY 03/26/17 [History Confirmed 08/09/20 Last Taken Unknown] simvastatin 40 mg tablet 40 mg PO QPM tab 08/11/17 [History Confirmed 08/09/20 Last Taken 08/09/20] umeclidinium 62.5 mcg/actuation blister powder for inhalation 1 inh INHALATION Q24H 12/07/17 [History Confirmed 08/09/20 Last Taken 08/09/20] omeprazole 20 mg tablet,delayed release 20 mg PO DAILY tab 07/04/18 [History Confirmed 08/09/20 Last Taken 08/09/20] pen needle, diabetic 09/11/19 [History Confirmed 08/09/20 Last Taken Unknown] fluticasone furoate-vilanterol 1 each IH DAILY 10/12/19 [History Confirmed 08/09/20 Last Taken 08/09/20] torsemide 20 mg tablet 20 mg PO QDAY #90 tab 05/07/20 [Rx Confirmed 08/09/20 Last Taken 08/09/20] blood sugar diagnostic #300 each 05/29/20 [Rx Confirmed 08/09/20 Last Taken Unknown] amoxicillin 500 mg PO BID #4 cap 08/11/20 [Rx Last Taken Unknown] doxycycline hyclate 100 mg PO BID #8 cap 08/11/20 [Rx Last Taken Unknown] carvedilol 6.25 mg PO BID #1 tab 08/14/20 [Rx Last Taken Unknown] COURSE Hospital Course Hospital course: History of present illness: Ms. Heller is a 74 year old F with a history of end- stage renal disease managed by [employer] Dr. Yee. Over the last couple of weeks patient noted increasing redness/pain and swelling around the right ankle extending up to the lower one third of leg. Symptoms gradually progressed with intensifying pain and redness and swelling. A week later she noted left lower extremity pain and swelling. She was evaluated in the minor care on 07/24 and was diagnosed with cellulitis right lower extremity and was started on doxycycline/Keflex. However despite treatment patient symptoms fail to resolve. She was referred by her [employer] to the ER today due to worsening symptoms increasing pain and difficulty ambulation. Initial work-up in the ER was consistent with right lower externally cellulitis. Negative Doppler ultrasound for DVT. Patient was started on Rocephin/vancomycin. Subsequently hospital service was consulted after case was discussed with [employer] who recommended admission At the time of my evaluation patient is alert and oriented. She denies active distress. She denies trauma/open wound or draining sores. She has not had similar symptoms or recurrent skin infection in the past. She denies diarrhea, dysuria, bloody stool, fever, chills. She further denies chest pain, shortness of breath headache lightheadedness or dizziness. 08/10-Patient doing well. On antibiotic coverage. White count downtrending. No overnight fever chills nausea vomiting, nursing staff expressed concerns about episode of hypoglycemia with blood sugar 48. Insulin held. Likely secondary to sustained insulin effect in light of renal failure. Right lower extremity swelling and redness improving. Ambulating, complains of minimal back pain Patient complains of intermittent spasmodic back pain. Was unable to sleep last night. Start Robaxin 500 twice daily as needed. 08/11 Slept okay. Overall feeling a little better. No new complaints. Leukocytosis resolved. He does have some diarrhea. Has a history of COPD and is on oxygen 2 L at night and sometimes during the day. Has a chronic cough. 08/12 Slept okay. Complains of stomachache generalized and bloating, feels it might be from the oral contrast study yesterday. And some occasional nausea. No other complaints. Possible lung mass biopsy today. The abdomen pelvis yesterday unremarkable. CT chest in the morning showed multiple pulmonary nodules and several masses with largest 3.3 x 3.3 cm. 08/13 Patient states she slept a little bit better last night. Still has a bit of a stomachache from the contrast study. Some occasional nausea. Diarrhea is slowing down since the contrast study. Hugh Yee considering starting dialysis he inpatient. 08/14 Attempted hemodialysis yesterday but seem to be infiltration when using the fistula. Patient slept all right. She has some nausea this morning. Diarrhea improved. She does feel some abdominal bloating. Dr. Yee stated unable to use the fistula as this was attempted the previous day. She will need temporary hemodialysis catheter and Dr. Yee has talked to Dr. Cano at [facility]. Patient will be transferred over to [facility] for catheter placement and HD. A: *RLE cellulitis: failed outpatient treatment -improved. Doppler ultrasound negative for DVT *HTN: home dose Coreg *h/o DM type II: A1c 5.5 -with episodes of hypoglycemia. d/c'd DM regimen *COPD(on 2L@night and sometimes during the day at home): stable on bronchodilators *GERD: continue PPI *CKD stage V: Managed by Dr. Yee. *Peripheral Edema, chronic: *incidental Pulmonary nodules/masses: ?metastatic RCC vs lung -CT abd/pelv unremarkable -pending biopsy results Discharge diagnosis: Right leg cellulitis end-stage renal disease pulmonary masses Secondary discharge diagnosis: Hypertension COPD GERD peripheral edema Time Spent with Patient Time attestation: Total time spent providing and/or coordinating discharge services: Time spent: Greater than 30 minutes EXAM Constitutional Vitals: Temp Pulse Resp BP Pulse Ox 97.2 F 104 H 20 119/55 97 08/14/20 07:12 08/14/20 07:31 08/14/20 07:31 08/14/20 07:12 08/14/20 07:31 Discharge Data Data Completed and Pending Labs on day of discharge: Labs from last 24 hours 08/14/20 05:39 Sodium 136 Potassium 4.1 Chloride 100 Carbon Dioxide 20 L Anion Gap 16.0 BUN 112 H* Creatinine 5.8 H* GFR Calculation 7 Glucose 86 Calcium 9.8 Preliminary micro results at discharge 08/09/20 13:30 Blood Culture - Preliminary Blood 08/09/20 13:20 Blood Culture - Preliminary Blood Discharge Plan Patient/Caregiver Discharge Instructions Activity: increase activity as tolerated Diet: Renal/Consistent Carbs Activity Restrictions/Additional Instructions: Follow-up with PCP and Dr. Yee regarding lung mass biopsy. monitor blood glucose twice daily and bring log to PCP. diabetic meds stopped for low glucose and low A1c. Prescriptions: New amoxicillin 500 mg capsule 500 mg PO BID Qty: 4 RF: 0 doxycycline hyclate 100 mg capsule 100 mg PO BID Qty: 8 RF: 0 Continued (DME) Contour Next Test Strips Strip See Rx Instructions .ROUTE .MEDSUPPLY Qty: 300 RF: 0 torsemide 20 mg tablet 20 mg PO QDAY Qty: 90 RF: 0 simvastatin 40 mg tablet 40 mg PO QPM RF: 0 umeclidinium [Incruse Ellipta] 62.5 mcg/actuation blister with device 1 inh INHALATION Q24H RF: 0 omeprazole 20 mg tablet,delayed release (DR/EC) 20 mg PO DAILY RF: 0 vitamin B complex [B Complex-Vitamin B12] tablet 1 tab-cap PO QDAY RF: 0 (DME) pen needle, diabetic 1 EACH needle See Dose Instructions dose .Route .MEDSUPPLY RF: 0 fluticasone furoate-vilanterol 1 EACH blister with device 1 each IH DAILY RF: 0 Changed carvedilol 6.25 mg tablet 6.25 mg PO BID Qty: 1 RF: 0 Discontinued Toujeo SoloStar U-300 Insulin 300 unit/mL (1.5 mL) insulin pen 10 unit SUB-Q QHS Qty: 4.5 RF: 0 insulin lispro [Humalog KwikPen Insulin] 100 unit/mL insulin pen 5 unit SUB-Q QHS Qty: 15 RF: 1 cephalexin 250 mg capsule 250 mg PO BID Qty: 10 RF: 0 glipizide 10 mg tablet 10 mg PO QDAY Qty: 90 RF: 0 Follow Up Plan Follow up with: Manuel Cano MD [Physician] - César Yee MD [Physician] - Debra Mcclure DO [Primary Care Provider] - Patient Disposition: Xfer [facility] Prognosis: Undetermined QUALITY VTE Deep Vein Thrombosis/Pulmonary Embolism Present on Admission: No
[2020-08-14] MEDS ORDERED: SIMETHICONE 80 MG TAB.CHEW CHEWED SCH (12:30)
--- NOTE | 2020-08-15 09:09 | Surgical Pathology Report ---
Histology Microscopic Diagnosis Specimen A- LUNG, RIGHT MASS, NEEDLE BIOPSY: -- METASTATIC CARCINOMA CONSISTENT WITH RENAL CELL CARCINOMA PRIMARY, SEE COMMENT. (EBD:sln) Comments The patient's history of renal cell carcinoma status post left nephrectomy is noted and outside pathology report ([facility] [id number], 12/24/2016) is reviewed. The current radiologic findings are also noted. The right lung mass biopsy shows morphologic and immunophenotypic (RCC, CD10, vimentin and PAX8 positive) features compatible with metastatic renal cell carcinoma. Additional immunohistochemical stains for lung (TTF-1, napsin, p63), breast (mammaglobin, GCDFP-15) and colorectal origin (CK20, CDX-2) are negative. Clinical History Right lung mass; hypoxia; pulmonary nodules. Microscopic Description Histologic sections of the right lung mass needle biopsy show an infiltrative carcinoma forming sheets and clusters of malignant cells with prominent nucleoli, moderate nuclear pleomorphism and clear cytoplasm. Immunohistochemistry is performed: Pancytokeratin: Positive. CK7: Negative. CK20: Negative. RCC: Positive. PAX8: Positive. CD10: Positive. Vimentin: Positive. VIOLA-3: Negative. Mammaglobin: Negative. GCDFP: Negative. TTF-1: Negative. Napsin: Negative. P63: Negative. CDX2: Negative. Interpretation: Metastatic carcinoma consistent with renal primary. Gross Description Received in formalin labeled right lung, are two cores of fierro-mckinley tissue along with two additional clot-like cores of tissue ranging in size from 0.2 up to 1.2 cm in length and less than 0.1 cm in diameter. Totally submitted in two cassettes. (KGW:adj) IHC Disclaimer Some of the tests reported may not have been cleared or approved by the U.S. Food Drug Administration (FDA). However, the FDA has determined that such clearance or approval is not necessary. Pursuant to the requirements of CLIA, this laboratory has established and verified the accuracy and precision of all tests, and additional information about these tests is available upon request. All technical controls are adequate. Electronically Signed Tory Vera MD, FCAP Electronically Signed 08/15/2020 9:08 AM
== END 2020-08-14 12:32 | disposition short-term general hospital (02) | DRG 602 ==
LOC: ED 10:17 → MEDSUR 15:16
PROVIDERS: ADMIT Internal Medicine; ATTEND Internal Medicine